=== PATIENT | female | born 1990 | race African-American/Black ===

== ENCOUNTER 2017-06-13 10:34 | Emergency (ER) | payer SELFPAY ==
[~2017-06-13] VITALS: Ht 152.4 cm; Wt 50.0 kg
[~2017-06-13 10:34] MED LIST: BACT800T5 PO; DICY1TAB26 PO; RANI150 PO; ZOFR4TAB3 SL
[2017-06-13 10:35] VITALS: BP 154/93; PULSE 112; RESP 20; TEMP 99.8; O2SAT 99
--- NOTE | 2017-06-13 10:46 | PD ---
Physical Exam Date Seen by Provider: Jun 13, 2017 Time Seen by Provider: 10:45 Narrative 26 yr old female here with b/l cysts on her forearms. She has had in the past. Denies IV drug use. Last time she treated herself at home. She jessica feverish. She has not checked her temperature. Awaiting bed placement. Data Data Last Documented VS Vital Signs Date Time Temp Pulse Resp B/P Pulse Ox O2 Delivery O2 Flow Rate FiO2 06/13/17 10:35 99.8 112 20 154/93 99 MDM Medical Record Reviewed: Yes Supervised Visit with ARTEM: No Condition: Stable Bailey Schwab Jun 13, 2017 10:46
[2017-06-13] MEDS ORDERED: LIDOCAINE HCL 1% 50 ML VIAL INFIL ONE (11:00)
--- NOTE | 2017-06-13 11:00 | PD ---
HPI . b/l arm cysts for 4 days Chief Complaint: Skin Problem Time Seen by Provider: 10:56 Travel History International Travel<30 days: No Contact w/Intl Traveler<30days: No Traveled to known affect area: No History of Present Illness HPI 26 yr old female with recurrent abscesses and denies any IV drug use here with b /l forearm abscesses x 4 days. She says they came out of nowhere and things something may have bitten her. They are mirror images of each other. She thinks she may have had a fever, but never checked her temperature. She is accompanied by her best friend. PFSH Past Medical History Hx Anticoagulant Therapy: No Atrial Fibrillation: No Blood Disorders: No Anxiety: Yes Heart Rhythm Problems: Yes (HEART MURMUR) Cancer: No Cardiovascular Problems: Yes (MURMUR) High Cholesterol: No Chemotherapy: No Chest Pain: No Congestive Heart Failure: No Cerebrovascular Accident: No Diabetes: No Diminished Hearing: No Endocrine: No Gastrointestinal Disorders: Yes (gastritis) Genitourinary: No Hypertension: No Immune Disorder: No Implanted Vascular Access Dvce: No Musculoskeletal: Yes (INJURY RT. HAND) Neurologic: No Psychiatric: No Reproductive: No Respiratory: No ?: Not LMP: 05/28/17 : 6 Para: 4 Miscarriage: 1 : 1 Past Surgical History Section: Yes Hysterectomy: No Other Surgery: Yes (SURGERY TO RIGHT RING FINGER FOR MRSA) Social History Alcohol Use: No Tobacco Use: Yes (occ smoker) Substance Use: No Allergies-Medications (Allergen,Severity, Reaction): Coded Allergies: Vancomycin (Verified Allergy, Severe, RASH, 09/06/16) Reported Meds & Prescriptions Reported Meds & Active Scripts Active Bactrim DS (Sulfamethoxazole-Trimethoprim) 800-160 Mg Tab 1 Tab PO BID Bactrim DS (Sulfamethoxazole-Trimethoprim DS) 1 Tab Tab 1 Tab PO BID 14 Days Zantac 150 Mg Tab (Ranitidine HCl) 150 Mg Tab 150 Mg PO BID 14 Days Bentyl (Dicyclomine HCl) 20 Mg Tab 20 Mg PO Q6HR PRN FOR CRAMPS Zofran ODT (Ondansetron HCl) 4 Mg Tab 4 Mg SL Q6H PRN FOR NAUSEA/VOMITING Review of Systems General / Constitutional: No: Fever Eyes: No: Visual changes HENT: No: Headaches Cardiovascular: No: Chest Pain or Discomfort Respiratory: No: Shortness of Breath Gastrointestinal: No: Abdominal Pain Genitourinary: No: Dysuria Musculoskeletal: No: Pain Skin: Positive Other (b/l forearm abscesses), No Rash Neurologic: No: Weakness Psychiatric: No: Depression Endocrine: No: Polydipsia Hematologic/Lymphatic: No: Easy Bruising Physical Exam Narrative GENERAL: AAO x 3, no acute distress, Well-nourished, well-developed patient. SKIN: Warm and dry. No visible rashes or bruising. B/L proximal forearm with two abscesses, indurated and fluctuant right measuring approximately 2 cm across , left 2.5 cm across, warm to touch and tender. HEAD: Normocephalic and atraumatic. EYES: No scleral icterus. No injection or drainage. ENT: No nasal drainage noted. Mucous membranes pink. Airway patent. NECK: Supple, trachea midline. No JVD. CARDIOVASCULAR: Regular rate and rhythm without murmurs, gallops, or rubs. RESPIRATORY: Breath sounds equal bilaterally. GASTROINTESTINAL:visual inspection normal EXTREMITIES: No cyanosis or edema. BACK: No obvious deformity. NEURO: CN II-12 intact PSYCH: AAO x 3, normal affect. Data Data Last Documented VS Vital Signs Date Time Temp Pulse Resp B/P Pulse Ox O2 Delivery O2 Flow Rate FiO2 06/13/17 10:35 99.8 112 20 154/93 99 Orders Wound Culture And Gram Stain (06/13/17 11:00) Lidocaine 1% Inj (50 Ml) (Xylocaine 1% I (06/13/17 11:00) Wound Culture And Gram Stain (06/13/17 11:01) Ketorolac Inj (Toradol Inj) (06/13/17 11:45) MDM Medical Decision Making Medical Screen Exam Complete: Yes Emergency Medical Condition: Yes Medical Record Reviewed: Yes Differential Diagnosis abscesses, IV drug use, cellulitis, Narrative Course 26 yr old female here with b/l abscesses. It appears these are from injecting drugs. She denies. Patient gave verbal consent to I&D. Patient tolerated without incident. Area was packed and dressed with clean gauze. We discussed proper wound care and worsening signs of infection.. I recommend Bactrim. I stressed that she needs to start this medication today. Toradol given for pain control. Prior to discharge patient verbalized that she is feeling significantly better. She was instructed to return to the ED in 48 hours for recheck and earlier if any infection seems to be worsening. Her friend also verbalized understanding. Patient verbalized understanding of instructions, questions were answered, and thanked me for their care. I advised them if their condition worsens, please return to the nearest emergency room for further care. After discharge, patient return to talk to me and admitted to using IV drugs. She told me that she injected cocaine into her forearms. Procedures Procedure Narrative Right arm: After the risks and benefits were discussed the following procedure was performed: INCISION AND DRAINAGE OF ABSCESS: The area was prepped and was sterilely draped. A subcutaneous wheal of 1 % Xylocaine with a total number 5 mL was used to anesthetize the area. The area was properly anesthetized. A number 11 scalpel was used to make a 1 -cm incision across the area of the abscess. Cultures were obtained. The abscess was drained an irrigated with normal saline. Quarter inch iodoform packing was placed in the wound. Sterile dressing applied. Patient advised to have packing removed in two days. Left arm: After the risks and benefits were discussed the following procedure was performed: INCISION AND DRAINAGE OF ABSCESS: The area was prepped and was sterilely draped. A subcutaneous wheal of 1 % Xylocaine with a total number 6 mL was used to anesthetize the area. The area was properly anesthetized. A number 11scalpel was used to make a 1 -cm incision across the area of the abscess. Cultures were obtained. The abscess was drained an irrigated with normal saline. Quarter inch iodoform packing was placed in the wound. Sterile dressing applied. Patient advised to have packing removed in two days. Diagnosis Primary Impression: Abscess Additional Impressions: Abscess of left forearm Abscess of right forearm Patient Instructions: General Instructions Additional Instructions: Rest, hydrate. Do not change the dressing unless it becomes wet or soiled until wound recheck in 48 hours. You may bathe normally. Do not submerge the wound. Take the antibiotics as they are prescribed, even if your symptoms resolve during the course of treatment. Utilize [id number] pain medications, as described on the label, as needed. Return to the ED in 48 hours for packing removal and wound recheck. Follow-up with your primary care provider in next week. Return to the ED for any urgent or emergent medical condition. Please return to emergency department if your symptoms return or worsen. Follow up with your primary care provider. Take medications as prescribed. [place] for worsening signs of infection which include fever, increased redness , increased warmth, purulent drainage, increased swelling or streaking. If any of these develop, please go to the nearest emergency room. Med/Other Pt SpecificInfo: Prescription(s) given Scripts Sulfamethoxazole-Trimethoprim (Bactrim DS)800-160 Mg Tab1 Tab PO BID #20 TAB Prov:Alfredo Babb MD 06/13/17 Disposition: 01 DISCHARGE HOME Condition: Stable Bailey Schwab Jun 13, 2017 11:00
[2017-06-13] MEDS ORDERED: BACT800T5 PO (11:35)
[2017-06-13] MEDS ORDERED: KETOROLAC TROMETHAMINE 60 MG/2 ML (IM) VIAL IM ONE (11:45)
== END 2017-06-13 11:58 | disposition home or self-care (01) ==
LOC: NEPK 10:34
DX: L02.413 Cutaneous abscess of right upper limb (principal); L02.414 Cutaneous abscess of left upper limb; B95.4 Other streptococcus as the cause of diseases classified elsewhere
CPT/HCPCS: 10061; 86403; 87070; 96372; 99284; J1885

== ENCOUNTER 2017-06-15 16:52 | Inpatient (IN) | payer SELFPAY ==
[~2017-06-15] VITALS: Ht 152.4 cm; Wt 55.0 kg
[2017-06-15 16:54] VITALS: BP 145/66; PULSE 104; RESP 24; TEMP 98.9; O2SAT 97
[2017-06-15] MEDS ORDERED: MAPA500T PO (17:49)
[2017-06-15] MEDS ORDERED: PIPERACIL-TAZO 4.5 GM PREMIX 100 ML IV STA (18:20)
[2017-06-15] MEDS ORDERED: MORPHINE SULFATE 8 MG/ML INJ IM ONE (18:30)
[2017-06-15] MEDS ORDERED: SODIUM CHLOR 0.9% 1000 ML INJ 1,000 ML IV ONE (18:30)
[2017-06-15] MEDS ORDERED: LINEZOLID 600 MG PREMIX 300 ML IV ONE (18:30)
[2017-06-15 18:55] LABS: AUTOMATED NEUTROPHIL # 8.5 TH/MM3 (1.8-7.7); BASOPHIL # 0.1 TH/MM3 (0-0.2); BASOPHIL % 0.5 % (0.0-2.0); EOSINOPHIL # 0.1 TH/MM3 (0-0.4); EOSINOPHIL % 0.8 % (0.0-4.0); HEMO FLAGS DIFF FINAL; LYMPH % 15.7 % (9.0-44.0); LYMPHOCYTE # 1.8 TH/MM3 (1.0-4.8); MEAN CELL VOLUME 90.8 FL (80.0-100.0); MEAN CORPUSCULAR HEMOGLOBIN 30.2 PG (27.0-34.0); MEAN CORPUSCULAR HGB CONC 33.3 % (32.0-36.0); MONO % 9.6 % (0.0-8.0); NEUT % 73.4 % (16.0-70.0); PLATELET COUNT 243 TH/MM3 (150-450); RED BLOOD COUNT 3.85 MIL/MM3 (4.00-5.30); RED CELL DISTRIBUTION WIDTH 13.2 % (11.6-17.2); WHITE BLOOD COUNT 11.6 TH/MM3 (4.0-11.0)
--- NOTE | 2017-06-15 19:08 | RADRPT ---
EXAM DATE/TIME: 06/15/2017 18:32 [facility] COMPARISON: CHEST PA & LAT, December 30, 2014, 19:04. INDICATIONS : Cough and two unhealing wounds on upper extremities. MEDICAL HISTORY : None. SURGICAL HISTORY : None. ENCOUNTER: Initial ACUITY: 1 day PAIN SCORE: 0/10 LOCATION: Bilateral upper chest FINDINGS: Hyperinflation. Heart and mediastinal contours are normal and the lungs are clear. Osseous structures are intact. CONCLUSION: 1. Hyperinflation. Geoffrey Miller MD on June 15, 2017 at 19:06 Board Certified Radiologist. This report was verified electronically.
[2017-06-15 19:10] VITALS: BP 124/59; PULSE 92; RESP 16; O2SAT 99
[2017-06-15 20:00] VITALS: BP 121/56; PULSE 78; RESP 16; O2SAT 98
--- NOTE | 2017-06-15 20:08 | PD ---
HPI Chief Complaint: Wound/Suture/Staple Re-Check Time Seen by Provider: 18:20 Travel History International Travel<30 days: No Contact w/Intl Traveler<30days: No Traveled to known affect area: No History of Present Illness HPI 26-year-old female came in with history of severe pain of her left upper extremity. Patient was seen in the emergency room 3 days ago. She was diagnosed with abscess and she had incision and drainage and packing done. Patient is an IV drug abuser. She was supposed to follow-up yesterday but came in today because she is in severe pain. I am unable to get much history because she just keeps shaking and crying. Vital signs otherwise stable. Her bandages are dirty. PFSH Past Medical History Narrative Medical List of her past medical, surgical, social and family history was reviewed from the nursing note. Hx Anticoagulant Therapy: No Atrial Fibrillation: No Blood Disorders: No Anxiety: Yes Heart Rhythm Problems: Yes (HEART MURMUR) Cancer: No Cardiovascular Problems: Yes (MURMUR) High Cholesterol: No Chemotherapy: No Chest Pain: No Congestive Heart Failure: No Cerebrovascular Accident: No Diabetes: No Diminished Hearing: No Endocrine: No Gastrointestinal Disorders: Yes (gastritis) Genitourinary: No Hypertension: No Immune Disorder: No Implanted Vascular Access Dvce: No Musculoskeletal: Yes (INJURY RT. HAND) Neurologic: No Psychiatric: No Reproductive: No Respiratory: No ?: Not LMP: 06/11/17 : 6 Para: 4 Miscarriage: 1 : 1 Past Surgical History Section: Yes Hysterectomy: No Other Surgery: Yes (SURGERY TO RIGHT RING FINGER FOR MRSA) Social History Alcohol Use: Yes ([facility]) Tobacco Use: Yes ([facility] smoker) Substance Use: Yes (marajuiana ) Allergies-Medications (Allergen,Severity, Reaction): Coded Allergies: Vancomycin (Verified Allergy, Severe, RASH, 09/06/16) Comments List of her allergies reviewed from the nursing note. Reported Meds & Prescriptions Reported Meds & Active Scripts Active Bactrim DS (Sulfamethoxazole-Trimethoprim) 800-160 Mg Tab 1 Tab PO BID Reported Mapap (Acetaminophen) 500 Mg Tab 1,000 Mg PO TID PRN Narrative Medication List of her home medications reviewed from the nursing note. Review of Systems Except as stated in HPI: all other systems reviewed are Neg Physical Exam Narrative GENERAL: Awake, alert, anxious, pain out of proportion SKIN: Focused skin assessment warm/dry. Left elbow area has the packing material coming out and the elbow is swollen and erythematous. Right upper extremity the skin and the extremity does not look as swollen. Distal pulses present HEAD: Atraumatic. Normocephalic. EYES: Pupils equal and round. No scleral icterus. No injection or drainage. ENT: No nasal bleeding or discharge. Mucous membranes pink and moist. NECK: Trachea midline. No JVD. CARDIOVASCULAR: Regular rate and rhythm. No murmur appreciated. RESPIRATORY: No accessory muscle use. Clear to auscultation. Breath sounds equal bilaterally. GASTROINTESTINAL: Abdomen soft, non-tender, nondistended. Hepatic and splenic margins not palpable. MUSCULOSKELETAL: No obvious deformities. No clubbing. No cyanosis. No edema. Decreased range of motion at the left elbow due to the pain. NEUROLOGICAL: Awake and alert. No obvious cranial nerve deficits. Motor grossly within normal limits. Normal speech. PSYCHIATRIC: Appropriate mood and affect; insight and judgment normal. Data Data Last Documented VS Vital Signs Date Time Temp Pulse Resp B/P Pulse Ox O2 Delivery O2 Flow Rate FiO2 06/15/17 20:00 78 16 121/56 98 Room Air 06/15/17 16:54 98.9 Orders Complete Blood Count With Diff (06/15/17 18:20) Comprehensive Metabolic Panel (06/15/17 18:20) Lactic Acid Sepsis Protocol (06/15/17 18:20) Urinalysis - C+S If Indicated (06/15/17 18:20) Blood Culture (06/15/17 18:20) Chest, Single Ap (06/15/17 18:20) Blood Glucose (06/15/17 18:20) Ecg Monitoring (06/15/17 18:20) Iv Access Insert/Monitor (06/15/17 18:20) Oximetry (06/15/17 18:20) Oxygen Administration (06/15/17 18:20) Piperacil-Tazo 4.5 Gm Premix (Zosyn 4.5 (06/15/17 18:20) Linezolid 600 Mg Premix (Zyvox 600 Mg Pr (06/15/17 18:30) Morphine Inj (Morphine Inj) (06/15/17 18:30) Sodium Chlor 0.9% 1000 Ml Inj (Ns 1000 M (06/15/17 18:30) Vascular Access Team Consult/P PRN (06/15/17 18:20) Vascular Poc Ultrasound (06/15/17 ) Creatine Kinase (Cpk) (06/15/17 18:29) Ct Forearm W Iv Contrast (06/15/17 ) Iohexol 350 Inj (Omnipaque 350 Inj) (06/15/17 21:11) Urine Culture (06/15/17 21:15) Admit Order (Ed Use Only) (06/15/17 22:09) Labs Laboratory Tests Test 06/15/17 06/15/17 06/15/17 18:25 18:33 21:15 Lactic Acid Level 1.7 mmol/L White Blood Count 11.6 TH/MM3 Red Blood Count 3.85 MIL/MM3 Hemoglobin 11.7 GM/DL Hematocrit 35.0 % Mean Corpuscular Volume 90.8 FL Mean Corpuscular Hemoglobin 30.2 PG Mean Corpuscular Hemoglobin 33.3 % Concent Red Cell Distribution Width 13.2 % Platelet Count 243 TH/MM3 Mean Platelet Volume 9.2 FL Neutrophils (%) (Auto) 73.4 % Lymphocytes (%) (Auto) 15.7 % Monocytes (%) (Auto) 9.6 % Eosinophils (%) (Auto) 0.8 % Basophils (%) (Auto) 0.5 % Neutrophils # (Auto) 8.5 TH/MM3 Lymphocytes # (Auto) 1.8 TH/MM3 Monocytes # (Auto) 1.1 TH/MM3 Eosinophils # (Auto) 0.1 TH/MM3 Basophils # (Auto) 0.1 TH/MM3 CBC Comment DIFF FINAL Differential Comment Sodium Level 138 MEQ/L Potassium Level 3.3 MEQ/L Chloride Level 103 MEQ/L Carbon Dioxide Level 24.3 MEQ/L Anion Gap 11 MEQ/L Blood Urea Nitrogen 8 MG/DL Creatinine 0.87 MG/DL Estimat Glomerular Filtration 94 ML/MIN Rate Random Glucose 98 MG/DL Calcium Level 8.5 MG/DL Total Bilirubin 0.4 MG/DL Aspartate Amino Transf 20 U/L (AST/SGOT) Alanine Aminotransferase 18 U/L (ALT/SGPT) Alkaline Phosphatase 77 U/L Total Creatine Kinase 178 U/L Total Protein 7.0 GM/DL Albumin 2.9 GM/DL Urine Color LIGHT-YELLOW Urine Turbidity CLEAR Urine pH 6.0 Urine Specific [place] 1.009 Urine Protein NEG mg/dL Urine Glucose (UA) NEG mg/dL Urine Ketones NEG mg/dL Urine Occult Blood NEG Urine Nitrite NEG Urine Bilirubin NEG Urine Urobilinogen LESS THAN 2.0 MG/DL Urine Leukocyte Esterase MOD Urine RBC 1 /hpf Urine WBC 14 /hpf Urine Squamous Epithelial 1 /hpf Cells Microscopic Urinalysis Comment CATH-CULTURE IND MDM Medical Decision Making Medical Screen Exam Complete: Yes Emergency Medical Condition: Yes Medical Record Reviewed: Yes Differential Diagnosis Necrotizing fasciitis, cellulitis, patient treatment failure, abscess Narrative Course 8 PM awaiting for the blood test result. Patient was started on IV Zosyn and IV linezolid and IV fluid as per sepsis protocol. Case was signed over to the oncoming ER physician. Critical Care Narrative Aggregate critical care time was 30 minutes. Time to perform other separately billable procedures was not included in the critical care time. My time did not include minutes spent treating any other patients simultaneously or on activities that did not directly contribute to the patient's treatment. The services I provided to this patient were to treat and/or prevent clinically significant deterioration that could result in: Sepsis, sepsis protocol I provided critical care services requiring my management, as noted below: Chart data review, documentation time, medication orders and management, vital sign assessments/reviewing monitor data, ordering and reviewing lab tests, ordering and interpreting/reviewing x-rays and diagnostic studies, care of the patient and discussion of the patient with the admitting physicians. Procedures EKG Prior to Arrival: No Scripts Tramadol 50 Mg Tab50 Mg PO Q4H PRN (PAIN) #90 TAB Ref 0 Prov:Rodo Boyd Jr., MD 06/16/17 John Farris MD Jun 15, 2017 20:07
[2017-06-15 20:23] LABS: ALT (GPT) 18 U/L (10-53)
[2017-06-15 20:25] LABS: ALKALINE PHOSPHATASE 77 U/L (45-117); TOTAL BILIRUBIN ADULT 0.4 MG/DL (0.2-1.0)
[2017-06-15 20:29] LABS: ANION GAP 11 MEQ/L (5-15); AST (GOT) 20 U/L (15-37); BICARBONATE 24.3 MEQ/L (21.0-32.0); BLOOD UREA NITROGEN 8 MG/DL (7-18); CHLORIDE 103 MEQ/L (98-107); GLOMERULAR FILTRATION RATE 94 ML/MIN (>89); POTASSIUM 3.3 MEQ/L (3.5-5.1); SODIUM (NA) 138 MEQ/L (136-145)
[2017-06-15] MEDS ORDERED: IOHEXOL 350 MG/ML 10 ML VIAL (for RAD DIAG) IV ONE (21:11)
--- NOTE | 2017-06-15 21:24 | RADRPT ---
EXAM DATE/TIME: 06/15/2017 20:59 [facility] COMPARISON: No previous studies available for comparison. INDICATIONS : Left arm pain, redness and swelling post abscess drainage three days ago. IV CONTRAST: 70 cc Omnipaque 350 (iohexol) IV RADIATION DOSE: 20.00 CTDIvol (mGy) MEDICAL HISTORY : IV drug use. SURGICAL HISTORY : None. ENCOUNTER: Initial ACUITY: 3 days PAIN SCALE: 10/10 LOCATION: Left forearm. TECHNIQUE: Volumetric scanning of the forearm was performed. Using automated exposure control and adjustment of the mA and/or kV according to patient size, radiation dose was kept as low as reasonably achievable to obtain optimal diagnostic quality images. DICOM format image data is available electronically fo r review and comparison. FINDINGS: The bones are normal. There is focal ulceration of the forearm proximally on image 43 of series 301 w ith skin thickening and subcutaneous fat stranding identified. There is subcutaneous edema in the ant erior left distal arm soft tissues, and at the distal left humerus medial subcutaneous tissues a rim- enhancing fluid collection is noted on axial image 58 of series 301 measuring 2.3 x 1.3 cm in AP and dimension extending 3.2 m in cephalocaudal dimension on axial image 1: 15 of series 303. There is diffuse subcutaneous edema. CONCLUSION: 1. There is ulceration of the proximal forearm skin with subcutaneous edema and cellulitis suspected. 2. In addition there is an abscess identified within the distal arm deep subcutaneous tissue. Geoffrey Miller MD on June 15, 2017 at 21:20 Board Certified Radiologist. This report was verified electronically.
[2017-06-15 21:30] LABS: BLOOD, URINE NEG (NEG); GLUCOSE,URINE NEG (NEG); KETONE, URINE NEG (NEG); NITRITE,URINE NEG (NEG); SQUAMOUS EPITHELIAL CELL URINE 1 /hpf (0-5); URINE COLOR LIGHT-YELLOW (YELLW/STRAW)
[2017-06-15 21:31] LABS: COMMENT (UR) CATH-CULTURE IND; CULTURE IF INDICATED CATH CULTURE IND
[2017-06-15] MEDS ORDERED: SODIUM CHLOR 0.9% 1000 ML INJ 1,000 ML IV SCH (22:19)
[2017-06-15] MEDS ORDERED: SODIUM CHLORIDE 0.9% FLUSH 10 ML FLUSH IV FLUSH PRN (22:30)
--- NOTE | 2017-06-15 22:39 | HHI.HP ---
HPI Service Family Medicine Primary Care Physician No Primary Care Physician Admission Diagnosis Deep Tissue Abscess, IVDA, Sepsis Diagnoses: International Travel<30 Days: No Contact w/Intl Traveler<30days: No Known Affected Area: No History of Present Illness Ms. Chin is a 26 yo AAF who is presenting in the ED with bilateral upper extremity skin infections. Pt states that 6 days ago she noticed a "knot" on the medial aspect of her L arm slightly distal to the elbow. She had a similar lesion on her R arm about 3 months ago that was still present. In both arms she began to experience pain, swelling and stiffness (worse on L than R). She attempted to miguel both lesions at home, but states only a small amount of pus was drained. 2 days ago she came to the ED and had both lesions I&D and packed. She was sent home on Bactrim. Since that time she reports worsening stiffness, swelling and pain in her L arm and now reports numbness on the lateral aspect of her forearm. She has been taking Tylenol 500 mg every 8-12 hours for pain and occasionally Aleve. She reports nausea, headache, and subjective fevers. Of note: pat (Yogesh Adams MD R1) Review of Systems Constitutional: COMPLAINS OF: Fever (Subjective) Eyes: DENIES: Blurred vision, Eye pain, Vision loss Respiratory: DENIES: Shortness of breath Cardiovascular: DENIES: Chest pain, Syncope Gastrointestinal: COMPLAINS OF: Nausea, DENIES: Black stools, Bloody stools, Diarrhea, Vomiting Musculoskeletal: COMPLAINS OF: Joint pain (R hip) (Yogesh Adams MD R1) Past Family Social History Past Medical History PMH: Skin infections (impetigo) - fingers, arms, Ovarian cysts h/o gastritis States she has no other medical problems Past Surgical History Multiple hand surgeries (fingernail infections), C section x1 (Yogesh Adams MD R1) Allergies: Coded Allergies: Vancomycin (Verified Allergy, Severe, RASH, 09/06/16) Family History Maternal - HTN, Maternal grandmother - DM, HTN Maternal grandfather - lung cancer Paternal - unknown Siblings - no medical problems Social History Homeless - states she is moving from place to place Alcohol - 1-2 drinks a week Tobacco - 0.5 ppd Illicit - Marijuana (not everyday), Cocaine (nasal), IVDU (cocaine - R and L arm x 1) (Yogesh Adams MD R1) Physical Exam Vital Signs Vital Signs Date Time Temp Pulse Resp B/P Pulse Ox O2 Delivery O2 Flow Rate FiO2 06/15/17 20:00 78 16 121/56 98 Room Air 06/15/17 19:10 92 16 124/59 99 Room Air 06/15/17 17:44 16 06/15/17 16:54 98.9 104 24 145/66 97 Room Air Physical Exam GENERAL: Well nourished AAF seen lying in bed uncomfortably. She is continuously shifting her legs and has both arms in a flexed position at the elbow. Occasionally complaining of discomfort regarding her IV. SKIN: Two erythematous lesions, roughly 1 x .25 inch open wounds with no purulent or bloody discharge. Noticeable soft tissue swelling and erythema over the proximal forearm and distal arm. HEAD: Atraumatic. Normocephalic. EYES: Extraocular motions intact. No scleral icterus. No injection or drainage. ENT: Nose without bleeding, purulent drainage or septal hematoma. Airway patent. NECK: Trachea midline. No JVD CARDIOVASCULAR: Regular rate and rhythm without murmurs, gallops, or rubs. RESPIRATORY: Clear to auscultation. Breath sounds equal bilaterally. No wheezes , rales, or rhonchi. GASTROINTESTINAL: Abdomen soft, non-tender, nondistended. No hepato-splenomegaly , or palpable masses. No guarding. NEUROLOGICAL: Awake and alert. Decreased gear inspector strength in the L hand compared to the R. Normal speech. Laboratory Laboratory Tests Test 06/15/17 06/15/17 06/15/17 18:25 18:33 21:15 Lactic Acid Level 1.7 White Blood Count 11.6 Red Blood Count 3.85 Hemoglobin 11.7 Hematocrit 35.0 Mean Corpuscular Volume 90.8 Mean Corpuscular Hemoglobin 30.2 Mean Corpuscular Hemoglobin 33.3 Concent Red Cell Distribution Width 13.2 Platelet Count 243 Mean Platelet Volume 9.2 Neutrophils (%) (Auto) 73.4 Lymphocytes (%) (Auto) 15.7 Monocytes (%) (Auto) 9.6 Eosinophils (%) (Auto) 0.8 Basophils (%) (Auto) 0.5 Neutrophils # (Auto) 8.5 Lymphocytes # (Auto) 1.8 Monocytes # (Auto) 1.1 Eosinophils # (Auto) 0.1 Basophils # (Auto) 0.1 CBC Comment DIFF FINAL Differential Comment Sodium Level 138 Potassium Level 3.3 Chloride Level 103 Carbon Dioxide Level 24.3 Anion Gap 11 Blood Urea Nitrogen 8 Creatinine 0.87 Estimat Glomerular Filtration 94 Rate Random Glucose 98 Calcium Level 8.5 Total Bilirubin 0.4 Aspartate Amino Transf 20 (AST/SGOT) Alanine Aminotransferase 18 (ALT/SGPT) Alkaline Phosphatase 77 Total Creatine Kinase 178 Total Protein 7.0 Albumin 2.9 Urine Color LIGHT-YELLOW Urine Turbidity CLEAR Urine pH 6.0 Urine Specific [place] 1.009 Urine Protein NEG Urine Glucose (UA) NEG Urine Ketones NEG Urine Occult Blood NEG Urine Nitrite NEG Urine Bilirubin NEG Urine Urobilinogen LESS THAN 2.0 Urine Leukocyte Esterase MOD Urine RBC 1 Urine WBC 14 Urine Squamous Epithelial 1 Cells Microscopic Urinalysis Comment CATH-CULTURE IND Date/Time Procedure Status Source Growth 06/15/17 21:15 Urine Culture Received Urine Catheterized Urine Pending 06/15/17 18:30 Aerobic Blood Culture Received Blood Peripheral Pending 06/15/17 18:30 Anaerobic Blood Culture Received Blood Peripheral Pending (Yogesh Adams MD R1) Result Diagram: 06/15/17 1833 06/15/17 1833 Assessment and Plan Assessment and Plan 26 yo AAF presenting with bilateral upper extremity cellulitis with abscess formation in L arm. Consulting General surgery and starting on Zosyn, Linezolid. Cultures pending 1. Left and Right arm cellulitis - known IVD user -CT scan concerning for cellulitis in proximal L forearm and abscess in distal arm - some symptoms concerning for compartment syndrome (pain, paresthesia, weakness ) - ED reported compartments pressures < 10 -Vascular ultrasound performed - will follow up read - consulted General surgery to evaluate for possible debridement - NPO pending surgery eval - Starting Zosyn 4.5 gm q6hr, Linezolid 600 mg q8hr -blood, urine cultures pending -repeat CBC in the AM (most recent WBC 11.6) 2. Pain -Pt in significant amount of pain with any movements of her upper extremities -Morphine scheduled and Dilaudid for breakthrough pain 3. Hypokalemia -Potassium 3.3 on admission -Adding 20 mEq/Liter to maintenance IVFs - Repeat BMP in the AM 4. Fluid, electrolyte, nutrition and prophylaxis -MIVFs + 20 mEq K -NPO until Gen Surgery eval possible OR so holding prophylaxis Code Status Full code Discussed Condition With Seen and discussed with Dr. Vonda Griffin Attending Attestation Dr. Goncalves (Yogesh Adams MD R1) Attending Attestation THIS CASE WAS DISCUSSED WITH THE RESIDENT PHYSICIANS. I HAVE REVIEWED THE RECORD AND AGREE WITH THE ABOVE NOTE AND PLAN OF CARE WAS DISCUSSED. I HAVE AUTHORIZED THE ORDER FOR ADMISSION TO AN IN-PATIENT STATUS. (Natalie Goncalves MD) Problem List: (1) Abscess of left forearm Status: Acute (2) Abscess of right forearm Status: Acute (3) Cellulitis Status: Acute (4) Hypokalemia Status: Acute (5) IVDU (intravenous drug user) Status: Acute (Yogesh Adams MD R1) Physician Certification 2 Midnight Certification Type: Admission for Inpatient Services Order for Inpatient Services The services are ordered in accordance with Medicare regulations or non- Medicare payer requirements, as applicable. In the case of services not specified as inpatient-only, they are appropriately provided as inpatient services in accordance with the 2-midnight benchmark. Estimated LOS (days): 3 days is the estimated time the patient will need to remain in the hospital, assuming treatment plan goals are met and no additional complications. Post-Hospital Plan: Not yet determined (Yogesh Adams MD R1) 2 Midnight Certification Type: Admission for Inpatient Services Post-Hospital Plan: Not yet determined (Natalie Goncalves MD) Yogesh Adams MD R1 Jun 15, 2017 22:38 Natalie Goncalves MD Jun 16, 2017 13:28
[2017-06-15 22:51] VITALS: BP_SYST 136; BP_SYST 139; BP_DIAS 69
[2017-06-15] MEDS ORDERED: MORPHINE SULFATE 4 MG/ML INJ IV PRN (23:00)
[2017-06-15] MEDS ORDERED: ACETAMINOPHEN 325 MG TAB PO PRN (23:00)
[2017-06-15] MEDS ORDERED: HYDROmorphone HCL PF 1 MG/ML VIAL IV PRN (23:00)
[2017-06-15] MEDS ORDERED: NALOXONE HCL 0.4 MG/ML AMP IV PRN (23:00)
[2017-06-16 00:05] VITALS: BP 124/66; PULSE 84; RESP 22; TEMP 98; O2SAT 99
[2017-06-16] MEDS: NS + KCL 20 MEQ INJ 1,000 ML IV SCH ×2 (02:26→12:26)
[2017-06-16 04:00] VITALS: BP 122/71; PULSE 77; RESP 20; TEMP 98.3; O2SAT 99
--- NOTE | 2017-06-16 04:44 | PD ---
Data Data Last Documented VS Vital Signs Date Time Temp Pulse Resp B/P Pulse Ox O2 Delivery O2 Flow Rate FiO2 06/15/17 20:00 78 16 121/56 98 Room Air 06/15/17 16:54 98.9 Orders Complete Blood Count With Diff (06/15/17 18:20) Comprehensive Metabolic Panel (06/15/17 18:20) Lactic Acid Sepsis Protocol (06/15/17 18:20) Urinalysis - C+S If Indicated (06/15/17 18:20) Blood Culture (06/15/17 18:20) Chest, Single Ap (06/15/17 18:20) Blood Glucose (06/15/17 18:20) Ecg Monitoring (06/15/17 18:20) Iv Access Insert/Monitor (06/15/17 18:20) Oximetry (06/15/17 18:20) Oxygen Administration (06/15/17 18:20) Piperacil-Tazo 4.5 Gm Premix (Zosyn 4.5 (06/15/17 18:20) Linezolid 600 Mg Premix (Zyvox 600 Mg Pr (06/15/17 18:30) Morphine Inj (Morphine Inj) (06/15/17 18:30) Sodium Chlor 0.9% 1000 Ml Inj (Ns 1000 M (06/15/17 18:30) Vascular Access Team Consult/P PRN (06/15/17 18:20) Vascular Poc Ultrasound (06/15/17 ) Creatine Kinase (Cpk) (06/15/17 18:29) Ct Forearm W Iv Contrast (06/15/17 ) Iohexol 350 Inj (Omnipaque 350 Inj) (06/15/17 21:11) Urine Culture (06/15/17 21:15) Admit Order (Ed Use Only) (06/15/17 22:09) Labs Laboratory Tests Test 06/15/17 06/15/17 06/15/17 18:25 18:33 21:15 Lactic Acid Level 1.7 mmol/L White Blood Count 11.6 TH/MM3 Red Blood Count 3.85 MIL/MM3 Hemoglobin 11.7 GM/DL Hematocrit 35.0 % Mean Corpuscular Volume 90.8 FL Mean Corpuscular Hemoglobin 30.2 PG Mean Corpuscular Hemoglobin 33.3 % Concent Red Cell Distribution Width 13.2 % Platelet Count 243 TH/MM3 Mean Platelet Volume 9.2 FL Neutrophils (%) (Auto) 73.4 % Lymphocytes (%) (Auto) 15.7 % Monocytes (%) (Auto) 9.6 % Eosinophils (%) (Auto) 0.8 % Basophils (%) (Auto) 0.5 % Neutrophils # (Auto) 8.5 TH/MM3 Lymphocytes # (Auto) 1.8 TH/MM3 Monocytes # (Auto) 1.1 TH/MM3 Eosinophils # (Auto) 0.1 TH/MM3 Basophils # (Auto) 0.1 TH/MM3 CBC Comment DIFF FINAL Differential Comment Sodium Level 138 MEQ/L Potassium Level 3.3 MEQ/L Chloride Level 103 MEQ/L Carbon Dioxide Level 24.3 MEQ/L Anion Gap 11 MEQ/L Blood Urea Nitrogen 8 MG/DL Creatinine 0.87 MG/DL Estimat Glomerular Filtration 94 ML/MIN Rate Random Glucose 98 MG/DL Calcium Level 8.5 MG/DL Total Bilirubin 0.4 MG/DL Aspartate Amino Transf 20 U/L (AST/SGOT) Alanine Aminotransferase 18 U/L (ALT/SGPT) Alkaline Phosphatase 77 U/L Total Creatine Kinase 178 U/L Total Protein 7.0 GM/DL Albumin 2.9 GM/DL Urine Color LIGHT-YELLOW Urine Turbidity CLEAR Urine pH 6.0 Urine Specific [place] 1.009 Urine Protein NEG mg/dL Urine Glucose (UA) NEG mg/dL Urine Ketones NEG mg/dL Urine Occult Blood NEG Urine Nitrite NEG Urine Bilirubin NEG Urine Urobilinogen LESS THAN 2.0 MG/DL Urine Leukocyte Esterase MOD Urine RBC 1 /hpf Urine WBC 14 /hpf Urine Squamous Epithelial 1 /hpf Cells Microscopic Urinalysis Comment CATH-CULTURE IND MDM Medical Record Reviewed: Yes Supervised Visit with ARTEM: No Narrative Course Please refer to the outgoing provider's note. The patient has an abscess in the left arm along the region of the distal humerus. This was discussed with Dr. Londono of orthopedics. He requests general surgery to evaluate the wound. General surgery request hand surgery to evaluate the wound as well. This was discussed with hand surgeon Dr Odell. The patient has received appropriate antibiosis. Case was discussed with family medicine residents. CBC & BMP Diagram 06/15/17 18:33 LFTs normal Lactic acid 1.7 Total creatine kinase 178 Last 24 hours Impressions Chest X-Ray 06/15/17 1820 Signed Impressions: Service Date/Time: Thursday, June 15, 2017 18:32 - CONCLUSION: 1. Hyperinflation. Geoffrey Miller MD Upper Extremity CT 06/15/17 0000 Signed Impressions: Service Date/Time: Tuesday, June 15, 2017 20:59 - CONCLUSION: 1. There is ulceration of the proximal forearm skin with subcutaneous edema and cellulitis suspected. 2. In addition there is an abscess identified within the distal arm deep subcutaneous tissue. Geoffrey Miller MD Diagnosis Primary Impression: Abscess of left forearm Additional Impressions: Hypokalemia IVDU (intravenous drug user) Admitting Information Admitting Physician Requests: Admit Luis E Lino MD Jun 16, 2017 04:44
[2017-06-16] MEDS: PIPERACIL-TAZO 4.5 GM PREMIX 100 ML IV SCH ×3 (05:54→16:57)
[2017-06-16] MEDS: MORPHINE SULFATE 4 MG/ML INJ IV PRN ×3 (06:07→16:56)
[2017-06-16] MEDS ORDERED: SODIUM CHLORIDE 0.9% FLUSH 10 ML FLUSH IV FLUSH SCH (09:00)
[2017-06-16 09:13] VITALS: BP 137/79; PULSE 93; RESP 16; TEMP 99.4; O2SAT 100
[2017-06-16] MEDS: LINEZOLID 600 MG PREMIX 300 ML IV SCH ×2 (09:16→20:00)
[2017-06-16] MEDS ORDERED: HYDROmorphone HCL PF 1 MG/ML VIAL IV PRN (11:00)
[2017-06-16 12:00] VITALS: BP 110/61; PULSE 67; RESP 16; TEMP 98.2; O2SAT 98
[2017-06-16] MEDS ORDERED: PROPOFOL 200 MG/20 ML AMP IV ONE (12:00)
[2017-06-16] MEDS ORDERED: ONDANSETRON HCL 4 MG/2 ML VIAL IV PUSH ONE (12:00)
[2017-06-16 12:07] LABS: BASOPHIL % 0.4 % (0.0-2.0); EOSINOPHIL % 0.5 % (0.0-4.0); HEMATOCRIT 34.4 % (35.0-46.0); HEMO FLAGS DIFF FINAL; LYMPH % 17.5 % (9.0-44.0); LYMPHOCYTE # 1.7 TH/MM3 (1.0-4.8); MEAN CORPUSCULAR HEMOGLOBIN 30.3 PG (27.0-34.0); MEAN CORPUSCULAR HGB CONC 33.3 % (32.0-36.0); MONO % 9.3 % (0.0-8.0); NEUT % 72.3 % (16.0-70.0); PLATELET COUNT 251 TH/MM3 (150-450); RED BLOOD COUNT 3.78 MIL/MM3 (4.00-5.30); WHITE BLOOD COUNT 9.7 TH/MM3 (4.0-11.0)
[2017-06-16 12:38] LABS: POTASSIUM 3.2 MEQ/L (3.5-5.1)
--- NOTE | 2017-06-16 13:50 | HHI.FPPN ---
Subjective Remarks No acute events overnight. VS unremarkable. This morning patient is yelling out in pain in bilateral arms. Reports that pain in right arm is now radiating up to her right shoulder. Does endorse hunger and wants to eat. (Renata Schofield MD R2) Objective Vitals Vital Signs Date Time Temp Pulse Resp B/P Pulse Ox O2 Delivery O2 Flow Rate FiO2 06/16/17 12:00 98.2 67 16 110/61 98 06/16/17 09:13 99.4 93 16 137/79 100 06/16/17 04:00 98.3 77 20 122/71 99 06/16/17 00:05 98.0 84 22 124/66 99 06/15/17 22:51 86 16 139/69 100 06/15/17 22:51 75 20 136/69 100 06/15/17 20:00 78 16 121/56 98 Room Air 06/15/17 19:10 92 16 124/59 99 Room Air 06/15/17 17:44 16 06/15/17 16:54 98.9 104 24 145/66 97 Room Air I/O 06/15/17 06/15/17 06/15/17 06/16/17 06/16/17 06/16/17 06:59 14:59 22:59 06:59 14:59 22:59 Intake Total 437 ml 180 ml Balance 437 ml 180 ml Intake IV Total 437 ml 180 ml # Voids 1 # Bowel Movements 0 (Renata Schofield MD R2) Result Diagram: 06/16/17 1104 06/16/17 1104 Objective Remarks GENERAL: Well nourished laying in bed kicking her legs and moving back in forth yelling in pain. After leaving the room and out of site, patient was lying in bed in no acute distress. SKIN: Lesions on bilateral arms/forearms are covered with clean and dry bandage. No surrounding erythema notes. PE as pulled from admission note: "two erythematous lesions, roughly 1 x .25 inch open wounds with no purulent or bloody discharge. Noticeable soft tissue swelling and erythema over the proximal forearm and distal arm." CARDIOVASCULAR: Regular rate and rhythm without murmurs, gallops, or rubs. RESPIRATORY: Anterior lungs clear to auscultation. Breath sounds equal bilaterally. No wheezes, rales, or rhonchi. MSK: Right shoulder without obvious deformity. There is significant swelling of right upper arm which is new. Soft to touch but clearly edematous. NEUROLOGICAL: Awake and alert. Normal speech. (Renata Schofield MD R2) A/P Assessment and Plan 26 yo AAF admitted for with bilateral upper extremity cellulitis and abscess Discharge Planning 1-2days pending improvement of cellulitis and abscess sdw Dr. Adams, Dr. Mark, Dr. Yamini Griffin, and Dr. Goncalves (Renata Schofield MD R2) Attending Attestation The exam, history, and the medical decision-making described in the above note were completed with the assistance of the resident physician. I reviewed and agree with the findings presented. I attest that I had a [id number] encounter with the patient on the same day, and personally performed and documented my assessment and findings in the medical record. (Natalie Goncalves MD) Problem List: (1) Cellulitis Status: Acute Plan: Bilateral upper extremity cellulitis and abscess. Hx of IV drug use. CT scan of left arm shows cellulitis of proximal left forearm and abscess of distal arm. No fevers. Concern for endocarditis as well. -Leukocytosis on admission resolved -urine culture pending -blood cultures negative -echo ordered for eval of endocarditis Ortho consulted: appreciate recommendation * general surgery and hand were consulted but reported that this case would best be served by ortho * per discussion with Dr. Ramires, keep NPO for surgery this evening Medications: * Linezolid 06/15- * Zosyn 06/15- * Morphine and Dilaudid for pain control Imaging: * Right arm US: ordered and pending * CT left arm: ulceration of the proximal forearm skin with subcutaneous edema and cellulitis suspected. Abscess within the distal arm deep subcutaneous tissue * CXR: unremarkable except for hyperinflation (2) Abscess of left forearm Status: Acute Plan: see above plan (3) Abscess of right forearm Status: Acute Plan: see above plan (4) Hypokalemia Status: Acute Plan: Remain to be hypokalemic. Unable to replace at this time due to the loss of IV access and NPO status. Will address once central line is placed and post op. (5) IVDU (intravenous drug user) Status: Acute Plan: Hx of IV drug use with cocaine. Denies any other drug use that she could be withdrawing from. (6) Nutrition, metabolism, and development symptoms Status: Acute Plan: Diet: NPO until after surgery Fluids: NS + KCL at 90, unable to give due to loss IV access at this time Electrolytes: see above, replete as needed GI PPX: none indicated DVT PPX: SCD, chemical contradicted due to upcoming procedure. (Renata Schofield MD R2) Renata Schofield MD R2 Jun 16, 2017 13:50 Natalie Goncalves MD Jun 17, 2017 10:12
--- NOTE | 2017-06-16 15:13 | RADRPT ---
EXAM DATE/TIME: 06/16/2017 14:38 [facility] COMPARISON: No previous studies available for comparison. INDICATIONS : Right arm wound and swelling. MEDICAL HISTORY : IV drug use. SURGICAL HISTORY : section. ENCOUNTER: Initial ACUITY: 4-6 days PAIN SCORE: 8/10 LOCATION: Right arm. AREA EVALUATED: Right upper arm and forearm FINDINGS: The underlying soft tissue in the right forearm it quite edematous without discrete abscess identifie d MASSES: None. FLUID COLLECTIONS: None. OTHER: Negative. CONCLUSION: Marked soft tissue edema without drainable fluid collection or abscess. The hypodense collection seen on the CT scan is more complicated than it appears on the CT scan . Th e area could be aspirated but I don't believe there significant material for drainage catheter . Mack Mar MD on June 16, 2017 at 15:09 Board Certified Radiologist. This report was verified electronically.
[2017-06-16 16:30] VITALS: BP 142/64; PULSE 64; RESP 19; TEMP 98.7; O2SAT 98
--- NOTE | 2017-06-16 16:54 | RADRPT ---
EXAM DATE/TIME: 06/16/2017 15:35 [facility] COMPARISON: No previous studies available for comparison. INDICATIONS : Patient with a history of deep tissue abscess needs central line MEDICAL HISTORY : Skin infections Ovarian cysts Gastritis IV drug abuser SURGICAL HISTORY : Hand surgeries ENCOUNTER: Initial ACUITY: 4-6 days PAIN SCORE: 8/10 LOCATION: Bilateral upper arm FLUORO TIME: 0.1 minutes IMAGE SERIES: 0 ACCESS: Right internal jugular vein DEVICE(S): 1.) 7 [place] triple lumen 20 cm Central line PROCEDURE : 1. Ultrasound guided venipuncture. 2. Fluoroscopic guidance. 3. Central line placement. The risks, benefits and alternatives to the procedure were explained and verbal and written consent w as obtained. The site was prepped in sterile fashion. Full sterile technique was used, including ca p, mask, sterile gloves and gown and a large sterile sheet. Hand hygiene and 2% chlorhexidine prep w as utilized per protocol for cutaneous antisepsis with appropriate dry time for site. The skin and subcutaneous tissues were infiltrated with local anesthetic solution. A suitable site a delonte the vein was selected with ultrasound and fluoroscopic guidance. A small incision was made. Th e vein was accessed under direct ultrasound visualization using the micropuncture technique. The quiana ropuncture set was exchanged for a 0.035 wire. The tract was dilated. The catheter was advanced int o position under direct fluoroscopic visualization. The catheter was fixed in place with suture and a sterile dressing was applied. The patient tolerated the procedure well and there were no complications. CONCLUSION: Uncomplicated line placement as above. Randall Caldwell MD on June 16, 2017 at 16:53 Board Certified Radiologist. This report was verified electronically.
--- NOTE | 2017-06-16 17:01 | ECHRPT ---
Indication: R/O SEPSIS, ENDOCARDITIS CONCLUSIONS The left ventricular systolic function is normal with an estimated ejection fraction in the range of 55-60%. [id number] mitral valve regurgitation. There is trace tricuspid valve regurgitation. No evidence of endocarditis noted BP: 137 / 79 HR: 93 Rhythm: Sinus MEASUREMENTS (Male / Female) Normal Values Technical Quality:Good 2D ECHO LV Diastolic Diameter PLAX 3.8 cm 4.2 - 5.9 / 3.9 - 5.3 cm LV Systolic Diameter PLAX 2.8 cm IVS Diastolic Thickness 0.5 cm 0.6 - 1.0 / 0.6 - 0.9 cm LVPW Diastolic Thickness 0.5 cm 0.6 - 1.0 / 0.6 - 0.9 cm LV Relative Wall Thickness 0.3 LVOT Diameter 1.7 cm Aortic Root Diameter 2.6 cm M-MODE AV Cusp Separation MM 1.9 cm DOPPLER AV Peak Velocity 135.0 cm/s AV Peak Gradient 7.3 mmHg AV Mean Gradient 4.0 mmHg AV Velocity Time Integral 26.9 cm LVOT Peak Velocity 82.0 cm/s LVOT Peak Gradient 2.7 mmHg LVOT Velocity Time Integral 14.9 cm LVOT Cardiac Index 5779.9 cm/minm AV Area Cont Eq vti 1.3 cm AV Area Cont Eq pk 1.4 cm Mitral E Point Velocity 92.8 cm/s Mitral A Point Velocity 59.7 cm/s Mitral E to A Ratio 1.6 TV Peak Velocity 223.0 cm/s TR Peak Velocity 225.0 cm/s TR Peak Gradient 20.3 mmHg PV Peak Velocity 66.2 cm/s PV Peak Gradient 1.8 mmHg FINDINGS LEFT VENTRICLE Normal left ventricular size. The left ventricular systolic function is normal with an estimated ejection fraction in the range of 55-60%. No regional wall motion abnormalities are present. RIGHT VENTRICLE Normal right ventricular size and systolic function. LEFT ATRIUM The left atrial size is normal. RIGHT ATRIUM The right atrial size is normal. ATRIAL SEPTUM Normal atrial septal thickness without atrial level shunting by limited color doppler interrogation. AORTA The aortic root and proximal ascending aorta are not well visualized. MITRAL VALVE Structurally normal mitral valve. [id number] mitral valve regurgitation. AORTIC VALVE Probably trileaflet aortic valve. No aortic valve regurgitation. No aortic valve stenosis. TRICUSPID VALVE Structurally normal tricuspid valve. There is trace tricuspid valve regurgitation. Normal estimated pulmonary pressures. PULMONARY VALVE The pulmonary valve is not well visualized. No pulmonary valve regurgitation. PERICARDIUM No pericardial effusion. Armin Lino DO (Electronically Signed) Final Date:16 June 2017 17:00
[2017-06-16] MEDS ORDERED: GENTAMICIN SULFATE 80 MG/2 ML VIAL ONE (17:07)
--- NOTE | 2017-06-16 20:41 | PD.CONS ---
cc: Rodo Boyd Jr., MD HPI Service Orthopedic Surgeons Consult Requested By Primary Care Physician No Primary Care Physician Admission Diagnosis Deep Tissue Abscess, IVDA, Sepsis Diagnoses: Chief Complaint: Bilateral upper extremity abscess History of Present Illness 26-year-old female with history of IV drug abuse presented with several days history of worsening bilateral upper extremity pain and swelling. She denies any fever or chills. Denies any other trauma. Denies loss of consciousness. Currently patient's pain is sharp, 9 out of 10, in bilateral forearm, exacerbated by any range of motion of the wrist and fingers, relieved at rest and with IV pain medicine, pain is nonradiating, not associated with any paresthesia and numbness to the extremities. Review of Systems Constitutional: DENIES: Diaphoretic episodes, Fatigue, Fever, Weight gain, Weight loss, Chills, Dizziness, Change in appetite, Night Sweats Endocrine: DENIES: Abnorml menstrual pattern, Heat/cold intolerance, Polydipsia , Polyuria, Polyphagia Eyes: DENIES: Blurred vision, Diplopia, Eye inflammation, Eye pain, Vision loss , Photosensitivity, Double Vision Ears, nose, mouth, throat: DENIES: Tinnitus, Hearing loss, Vertigo, Nasal discharge, Oral lesions, Throat pain, Hoarseness, Ear Pain, Running Nose, Epistaxis, Sinus Pain, Toothache, Odynophagia Respiratory: DENIES: Apneas, Cough, Snoring, Wheezing, Hemoptysis, Sputum production, Shortness of breath Past Family Social History Allergies: Coded Allergies: Vancomycin (Verified Allergy, Severe, RASH, 09/06/16) Active Ordered Medications Current Medications Medications (Trade) Dose Ordered Sig/Joselin Route Start Time Stop Time Status Last Admin (NS Flush) 2 ml BID IV FLUSH 06/16/17 09:00 06/16/17 09:16 (NS Flush) 2 ml UNSCH PRN IV FLUSH 06/15/17 22:30 (Tylenol) 650 mg Q6H PRN PO 06/15/17 23:00 (Morphine Inj) 2 mg Q3H PRN IV 06/15/17 23:00 (Morphine Inj) 4 mg Q3H PRN IV 06/15/17 23:00 06/16/17 16:56 Naloxone HCl 0.4 mg 0.4 mg UNSCH PRN IV 06/15/17 23:00 Linezolid 300 ml @ 300 mls/hr Q12H IV 06/16/17 08:00 06/16/17 09:16 Piperacillin Sod/ Tazobactam Sod 100 ml @ 200 mls/hr Q6H IV 06/16/17 06:00 06/16/17 16:57 (NS + KCl 20 Meq Inj) 1,000 ml @ 90 mls/hr Q11H7M IV 06/16/17 02:15 06/16/17 02:26 (Dilaudid Pf Inj) 2 mg Q3H PRN IV 06/16/17 11:00 Reported Meds & Active Scripts Active Bactrim DS (Sulfamethoxazole-Trimethoprim) 800-160 Mg Tab 1 Tab PO BID Reported Mapap (Acetaminophen) 500 Mg Tab 1,000 Mg PO TID PRN Physical Exam Vital Signs Vital Signs Date Time Temp Pulse Resp B/P Pulse Ox O2 Delivery O2 Flow Rate FiO2 06/16/17 16:30 98.7 64 19 142/64 98 06/16/17 12:00 98.2 67 16 110/61 98 06/16/17 09:13 99.4 93 16 137/79 100 06/16/17 04:00 98.3 77 20 122/71 99 06/16/17 00:05 98.0 84 22 124/66 99 06/15/17 22:51 86 16 139/69 100 06/15/17 22:51 75 20 136/69 100 Physical Exam Alert awake and oriented x 3. No acute distress. Head: NC/AT Neck: No pain with any range of motion and neck. No tenderness to palpation along posterior cervical elements. Negative Spurling. Pulmonary: Normal respiratory effort. Bilateral upper extremity: Small volar forearm wound with purulent drainage. Compartments are soft firm with expressible purulent drainage. Otherwise grossly neurovascular intact. Small area of induration and no fluctuance. Very minimal pain with passive finger range of motion. Area of erythema extends to the radial arm and overlying the antecubital fossa on the right side. otherwise, Intact sensation distally in median, ulnar, and radial nerve. Intact motor in anterior interosseous, posterior interosseous, and ulnar nerve. 2+ radial artery pulses. Good cap refill. Bilateral lower extremity: Neurovascularly intact, +EHL/FHL,+ PT/DP pulses. Supple compartments. Negative Homans sign. Laboratory Laboratory Tests Test 06/15/17 06/16/17 21:15 11:04 Urine Color LIGHT-YELLOW Urine Turbidity CLEAR Urine pH 6.0 Urine Specific [place] 1.009 Urine Protein NEG Urine Glucose (UA) NEG Urine Ketones NEG Urine Occult Blood NEG Urine Nitrite NEG Urine Bilirubin NEG Urine Urobilinogen LESS THAN 2.0 Urine Leukocyte Esterase MOD Urine RBC 1 Urine WBC 14 Urine Squamous Epithelial 1 Cells Microscopic Urinalysis Comment CATH-CULTURE IND White Blood Count 9.7 Red Blood Count 3.78 Hemoglobin 11.5 Hematocrit 34.4 Mean Corpuscular Volume 91.0 Mean Corpuscular Hemoglobin 30.3 Mean Corpuscular Hemoglobin 33.3 Concent Red Cell Distribution Width 13.0 Platelet Count 251 Mean Platelet Volume 9.2 Neutrophils (%) (Auto) 72.3 Lymphocytes (%) (Auto) 17.5 Monocytes (%) (Auto) 9.3 Eosinophils (%) (Auto) 0.5 Basophils (%) (Auto) 0.4 Neutrophils # (Auto) 7.0 Lymphocytes # (Auto) 1.7 Monocytes # (Auto) 0.9 Eosinophils # (Auto) 0.0 Basophils # (Auto) 0.0 CBC Comment DIFF FINAL Differential Comment Erythrocyte Sedimentation Rate 49 Sodium Level 136 Potassium Level 3.2 Chloride Level 102 Carbon Dioxide Level 24.0 Anion Gap 10 Blood Urea Nitrogen 2 Creatinine 0.71 Estimat Glomerular Filtration 119 Rate Random Glucose 110 Calcium Level 8.1 Date/Time Procedure Status Source Growth 06/15/17 21:15 Urine Culture - Preliminary Resulted Urine Catheterized Urine NO GROWTH IN 24 HOURS. 06/15/17 18:30 Aerobic Blood Culture - Preliminary Resulted Blood Peripheral NO GROWTH IN 1 DAY 06/15/17 18:30 Anaerobic Blood Culture - Preliminary Resulted Blood Peripheral NO GROWTH IN 1 DAY Result Diagram: 06/16/17 1104 06/16/17 1104 Imaging Last 72 hours Impressions Upper Extremity Ultrasound 06/16/17 0000 Signed Impressions: Service Date/Time: May 14:38 - CONCLUSION: Marked soft tissue edema without drainable fluid collection or abscess. The hypodense collection seen on the CT scan is more complicated than it appears on the CT scan . The area could be aspirated but I don't believe there significant material for drainage catheter . Mack Mar MD Central Venous Line 06/16/17 0000 Signed Impressions: Service Date/Time: , June 16, 2017 15:35 - CONCLUSION: Uncomplicated line placement as above. Randall Caldwell MD Chest X-Ray 06/15/17 1820 Signed Impressions: Service Date/Time: Thursday, June 15, 2017 18:32 - CONCLUSION: 1. Hyperinflation. Geoffrey Miller MD Upper Extremity CT 06/15/17 0000 Signed Impressions: Service Date/Time: Tuesday, June 15, 2017 20:59 - CONCLUSION: 1. There is ulceration of the proximal forearm skin with subcutaneous edema and cellulitis suspected. 2. In addition there is an abscess identified within the distal arm deep subcutaneous tissue. Geoffrey Miller MD Assessment & Plan Assessment and Plan 26-year-old female history IV drug abuse presents with a few day history of bilateral upper extremity swelling and draining wound. She denies any fever or chills. Upon presentation she is neurovascularly intact, with 2 superficially open wounds in the mid proximal forearm. The wounds were actually draining purulent material. I recommend irrigation and drainage. I discussed my treatment plans with the patient, as well as risks, benefits and alternatives of surgical Intervention versus nonoperative treatment. In this case, the risks of operative intervention involves bleeding, infection, risks of damage to neurovascular structures, the risk of needing further surgery and the risks involved with complication from anesthesia. We will proceed with the above procedure. The patient accepts these risks; understands and agrees with my recommendations. I also discussed my proposed postoperative care and follow-up plan. All questions were answered. Plan for OR []. Nothing by mouth []. Patient consented. Thanks for the consult, thanks for allowing me to participate in this patient's medical care. Rodo Boyd Jr., MD Jun 16, 2017 20:41
[2017-06-16] MEDS ORDERED: TRAM50TA PO (20:42)
[2017-06-16] MEDS ORDERED: ONDANSETRON HCL 4 MG/2 ML VIAL IV PRN (20:45)
[2017-06-16] MEDS ORDERED: ZOLPIDEM TARTRATE 5 MG TAB PO PRN (20:45)
[2017-06-16] MEDS ORDERED: KETOROLAC TROMETHAMINE 30 MG/ML (IVP) VIAL IVP ONE (20:45)
[2017-06-16] MEDS ORDERED: MORPHINE SULFATE 8 MG/ML INJ IV PUSH PRN (20:45)
[2017-06-16] MEDS ORDERED: SODIUM CHLORIDE 0.9% FLUSH 10 ML FLUSH IV FLUSH PRN (20:45)
--- NOTE | 2017-06-16 20:51 | PD.OP ---
cc: Rodo Boyd Jr., MD Operative Report Date of Surgery: Jun 16, 2017 Preoperative Diagnosis: Bilateral upper forearm abscess Postoperative Diagnosis: Same Procedure: Irrigation and drainage of bilateral forearm subcutaneous abscess Anesthesia: Gen. Surgeon: Rodo Boyd Bankman(s): Staff Resident Surgeon: None Operation and Findings: Patient was seen and evaluated preoperatively. Patient was found to have bilateral forearm abscess. Fluctuance was noted. Informed consent was obtained after detailed discussion of risk and benefits of surgery. Operative sites were marked. Patient placed supine and both upper extremities prepped. IV sedation and GETA were administered by anesthesiologist. Operative arms were prepped and draped in usual sterile fashion. Timeout procedure was performed. Procedure began with a longitudinal volar forearm incision above the abscesses. Subcutaneous tissue dissected with Bovie. In both upper forearm abscesses, A large pocket of purulent material was found. The underlying glistening fascia was not violated. The fascia appeared healthy. Specimen was obtained for cultures and sensitivities. the wound edges were sharply debrided. Both wounds were thoroughly irrigated with copious amount of normal saline. The right forearm abscess was more extensive than larger, therefore I packed the wound with iodoform gauze prior to closure. At this point the wound were clean. Subcutaneous tissues closed with 3-0 PDS and skin was closed with 2-0 nylon. Sterile dressings were applied. Patient was awakened and transferred to recovery in stable condition. Needle and sponge counts were correct. DRAINS: none POSTP-OP PLAN OF ACTIVITY Antibiotics: Ancef Antiocoagulation: SCD Weight bearing status: wbat PT/OT: ROM as tolerated to irrigated joints Dressing: Removed drains packing RUE POD 2, then daily dressing change by RN Dispo: expected discharge 1-2 days. abx per ID recs Rodo Boyd Jr., MD Jun 16, 2017 20:51
[2017-06-16] MEDS: LACTATED RINGER'S 1000 ML INJ 1,000 ML IV SCH ×2 (21:00→21:47)
[2017-06-16] MEDS: DOCUSATE SODIUM 100 MG CAP PO SCH (21:00)
[2017-06-16] MEDS: SODIUM CHLORIDE 0.9% FLUSH 10 ML FLUSH IV FLUSH SCH (21:00)
[2017-06-16] MEDS ORDERED: HYDROmorphone HCL PF 2 MG/ML VIAL ONE (21:08)
[2017-06-16] MEDS ORDERED: MIDAZOLAM HCL 2 MG/2 ML VIAL ONE (21:16)
--- NOTE | 2017-06-16 21:26 | PD.CONS ---
cc: Brenden Acosta MD HPI Service General Surgery Consult Requested By Dr. Lino Reason for Consult Evaluation of BUE abscesses Primary Care Physician No Primary Care Physician History of Present Illness This is a 26 year old female with a past medical history of IV drug abuse with multiple abscesses. The patient was seen earlier this week for evaluation of left forearm abscess which was drained in the Emergency Department. The patient returns to the Emergency Department for evaluation of the left forearm abscess as well as a right forearm abscess. The patient is homeless. She has had multiple admissions for bilateral upper extremity abscesses. A General Surgery consultation has been requested by the emergency department by Dr. Acosta made it clear that this was within the specialty of either an Orthopedic Surgeon or a Hand Surgeon. Jayla GONZALEZ was contacted by the Mail Officer team which requested clarification and evaluation of forearm abscesses. Review of Systems Constitutional: DENIES: Fever, Chills Endocrine: DENIES: Polydipsia, Polyuria, Polyphagia Eyes: DENIES: Diplopia, Eye inflammation Ears, nose, mouth, throat: DENIES: Hearing loss Respiratory: DENIES: Apneas Cardiovascular: DENIES: Chest pain Gastrointestinal: DENIES: Abdominal pain, Bloody stools Genitourinary: DENIES: Urinary frequency, Urinary incontinence Musculoskeletal: COMPLAINS OF: Joint pain (RIGHT shoulder pain ) Integumentary: COMPLAINS OF: Abnormal pigmentation (BUE abscesses; draining) Hematologic/lymphatic: DENIES: Bruising Immunologic/allergic: DENIES: Eczema Neurologic: DENIES: Headache, Localized weakness Psychiatric: DENIES: Mood changes, Depression, Hallucinations Past Family Social History Past Medical History None Past Surgical History Multiple incision and drainage of multiple bilateral upper extremity abscesses Reported Medications None Allergies: Coded Allergies: Vancomycin (Verified Allergy, Severe, RASH, 09/06/16) Active Ordered Medications Current Medications Medications (Trade) Dose Ordered Sig/Joselin Route Start Time Stop Time Status Last Admin (Morphine Inj) 2 mg Q3H PRN IV 06/15/17 23:00 (Morphine Inj) 4 mg Q3H PRN IV 06/15/17 23:00 06/16/17 16:56 Naloxone HCl 0.4 mg 0.4 mg UNSCH PRN IV 06/15/17 23:00 Linezolid 300 ml @ 300 mls/hr Q12H IV 06/16/17 08:00 06/16/17 09:16 Piperacillin Sod/ Tazobactam Sod 100 ml @ 200 mls/hr Q6H IV 06/16/17 06:00 06/16/17 16:57 (Lr 1000 ml Inj) 1,000 ml @ 100 mls/hr Q10H IV 06/16/17 21:00 06/16/17 21:00 (NS Flush) 2 ml UNSCH PRN IV FLUSH 06/16/17 20:45 Sodium Chloride 2 ml 2 ml BID IV FLUSH 06/16/17 21:00 (Ancef Inj/NS Inj) 100 ml @ 200 mls/hr Q6H IV 06/16/17 22:00 06/16/17 21:18 (Morphine Inj) 5 mg Q3H PRN IV PUSH 06/16/17 20:45 (Percocet 5-325 Mg) 1 tab Q4H PRN PO 06/16/17 20:45 (Zofran Inj) 4 mg Q6H PRN IV 06/16/17 20:45 (Colace) 100 mg BID PO 06/16/17 21:00 (Ambien) 5 mg HS PRN PO 06/16/17 20:45 Family History Noncontributory Social History Positive IVDA The patient is homeless. Physical Exam Vital Signs Vital Signs Date Time Temp Pulse Resp B/P Pulse Ox O2 Delivery O2 Flow Rate FiO2 06/16/17 16:30 98.7 64 19 142/64 98 06/16/17 12:00 98.2 67 16 110/61 98 06/16/17 09:13 99.4 93 16 137/79 100 06/16/17 04:00 98.3 77 20 122/71 99 06/16/17 00:05 98.0 84 22 124/66 99 06/15/17 22:51 86 16 139/69 100 06/15/17 22:51 75 20 136/69 100 Physical Exam GENERAL: 26-year-old female resting in bed in moderate distress. SKIN: RIGHT proximal to AX abscess with indurated area and open area drainage; LEFT FA abscess with indurated area and open area draining purulent drainage HEAD: Atraumatic. Normocephalic. EYES: Pupils equal and round. No scleral icterus. No injection or drainage. ENT: No nasal bleeding or discharge. Mucous membranes pink and moist. NECK: Trachea midline. No JVD. CARDIOVASCULAR: Regular rate and rhythm. RESPIRATORY: No accessory muscle use. Clear to auscultation. Breath sounds equal bilaterally. GASTROINTESTINAL: Abdomen soft, non-tender, nondistended. MUSCULOSKELETAL: Limited ROM of RIGHT shoulder. NEUROLOGICAL: Awake and alert. No obvious cranial nerve deficits. Motor grossly within normal limits. Normal speech. PSYCHIATRIC: Anxious. Laboratory Laboratory Tests Test 06/16/17 11:04 White Blood Count 9.7 Red Blood Count 3.78 Hemoglobin 11.5 Hematocrit 34.4 Mean Corpuscular Volume 91.0 Mean Corpuscular Hemoglobin 30.3 Mean Corpuscular Hemoglobin 33.3 Concent Red Cell Distribution Width 13.0 Platelet Count 251 Mean Platelet Volume 9.2 Neutrophils (%) (Auto) 72.3 Lymphocytes (%) (Auto) 17.5 Monocytes (%) (Auto) 9.3 Eosinophils (%) (Auto) 0.5 Basophils (%) (Auto) 0.4 Neutrophils # (Auto) 7.0 Lymphocytes # (Auto) 1.7 Monocytes # (Auto) 0.9 Eosinophils # (Auto) 0.0 Basophils # (Auto) 0.0 CBC Comment DIFF FINAL Differential Comment Erythrocyte Sedimentation Rate 49 Sodium Level 136 Potassium Level 3.2 Chloride Level 102 Carbon Dioxide Level 24.0 Anion Gap 10 Blood Urea Nitrogen 2 Creatinine 0.71 Estimat Glomerular Filtration 119 Rate Random Glucose 110 Calcium Level 8.1 Date/Time Procedure Status Source Growth 06/15/17 21:15 Urine Culture - Preliminary Resulted Urine Catheterized Urine NO GROWTH IN 24 HOURS. 06/15/17 18:30 Aerobic Blood Culture - Preliminary Resulted Blood Peripheral NO GROWTH IN 1 DAY 06/15/17 18:30 Anaerobic Blood Culture - Preliminary Resulted Blood Peripheral NO GROWTH IN 1 DAY Result Diagram: 06/16/17 1104 06/16/17 1104 Imaging Last 48 hours Impressions Upper Extremity Ultrasound 06/16/17 0000 Signed Impressions: Service Date/Time: May 14:38 - CONCLUSION: Marked soft tissue edema without drainable fluid collection or abscess. The hypodense collection seen on the CT scan is more complicated than it appears on the CT scan . The area could be aspirated but I don't believe there significant material for drainage catheter . Mack Mar MD Central Venous Line 06/16/17 0000 Signed Impressions: Service Date/Time: May 15:35 - CONCLUSION: Uncomplicated line placement as above. Randall Caldwell MD Chest X-Ray 06/15/17 1820 Signed Impressions: Service Date/Time: Thursday, June 15, 2017 18:32 - CONCLUSION: 1. Hyperinflation. Geoffrey Miller MD Assessment and Plan Assessment and Plan 26 year old female with BUE abscess -After evaluation at the bedside by Dr. Acosta and Dr. dOell it was decided that Orthopedics should be consulted due to the area of the abscess -NPO -I personally contacted [facility] after evaluation of the patient -Spoke with Dr. Schofield and she will consult Orthopedics -No General Surgery issues at this time Discussed Condition With Jayal Sorensen Dr., Dr., Ms. Jun 16, 2017 21:26
[2017-06-16] MEDS ORDERED: DO NOT ADM ANY ANTICOAGULANT DRUGS PRN (21:45)
[2017-06-16 22:00] VITALS: BP 131/61; PULSE 69; RESP 23; TEMP 97.1; O2SAT 100
[2017-06-17] MEDS: PIPERACIL-TAZO 4.5 GM PREMIX 100 ML IV SCH ×4 (00:04→17:21)
[2017-06-17] MEDS: oxyCODONE/ACETAMINOPHEN 5 MG/325 MG TAB PO PRN ×6 (00:42→22:25)
[2017-06-17 04:30] VITALS: BP 130/62; PULSE 67; RESP 19; TEMP 98; O2SAT 100
[2017-06-17 06:21] LABS: AUTOMATED NEUTROPHIL # 4.8 TH/MM3 (1.8-7.7); BASOPHIL % 0.5 % (0.0-2.0); EOSINOPHIL # 0.1 TH/MM3 (0-0.4); EOSINOPHIL % 0.7 % (0.0-4.0); HEMATOCRIT 30.5 % (35.0-46.0); HEMO FLAGS DIFF FINAL; LYMPH % 29.6 % (9.0-44.0); LYMPHOCYTE # 2.4 TH/MM3 (1.0-4.8); MEAN CELL VOLUME 91.6 FL (80.0-100.0); MEAN CORPUSCULAR HEMOGLOBIN 30.4 PG (27.0-34.0); MEAN CORPUSCULAR HGB CONC 33.2 % (32.0-36.0); MONO % 10.9 % (0.0-8.0); NEUT % 58.3 % (16.0-70.0); PLATELET COUNT 235 TH/MM3 (150-450); RED BLOOD COUNT 3.33 MIL/MM3 (4.00-5.30); WHITE BLOOD COUNT 8.2 TH/MM3 (4.0-11.0)
[2017-06-17 06:52] LABS: BICARBONATE 27.9 MEQ/L (21.0-32.0); POTASSIUM 4.7 MEQ/L (3.5-5.1)
--- NOTE | 2017-06-17 08:25 | PD.WCN.NOT ---
Wound Consult Additional Information: Patient not seen by wound care. Orthopedic surgeon was consulted and I&D procedure performed. Doctor wrote orders for patient. Please follow Orthopedic surgeon's recommendations and orders.Wound care is signing off. Ostomy Date of Surgery: Jun 16, 2017 [facility] Jun 17, 2017 08:25
[2017-06-17] MEDS: LINEZOLID 600 MG PREMIX 300 ML IV SCH ×2 (08:27→19:57)
[2017-06-17] MEDS: SODIUM CHLORIDE 0.9% FLUSH 10 ML FLUSH IV FLUSH SCH ×2 (08:31→19:58)
[2017-06-17] MEDS: DOCUSATE SODIUM 100 MG CAP PO SCH ×2 (08:32→19:53)
[2017-06-17 08:46] VITALS: BP 120/55; PULSE 64; RESP 16; TEMP 98.3; O2SAT 97
--- NOTE | 2017-06-17 11:03 | HHI.FPPN ---
Subjective Remarks Patient was seen and examined this morning. She states her pain is better and controlled on by mouth meds since her I&D procedures yesterday. She denies chest pain, shortness breath, nausea, vomiting or headache. She has been eating clear liquids without difficulty. She has asked for regular diet this morning. She has not ambulated since the procedure. (Vonda Griffin MD R1) Objective Vitals Vital Signs Date Time Temp Pulse Resp B/P Pulse Ox O2 Delivery O2 Flow Rate FiO2 06/17/17 08:46 98.3 64 16 120/55 97 06/17/17 04:30 98.0 67 19 130/62 100 06/16/17 22:00 97.1 69 23 131/61 100 06/16/17 21:29 88 16 113/68 96 Room Air 06/16/17 21:15 92 16 114/68 96 Nasal Cannula 2 06/16/17 21:01 98.5 103 16 142/88 100 Nasal Cannula 2 06/16/17 16:30 98.7 64 19 142/64 98 06/16/17 12:00 98.2 67 16 110/61 98 I/O 06/16/17 06/16/17 06/16/17 06/17/17 06/17/17 06/17/17 06:59 14:59 22:59 06:59 14:59 22:59 Intake Total 437 ml 180 ml 800 ml 400 ml Output Total 50 ml Balance 437 ml 180 ml 750 ml 400 ml Intake Oral 0 ml 400 ml IV Total 437 ml 180 ml 300 ml Other 500 ml Output Estimated Blood Loss 50 ml Other 0 ml # Voids 1 1 2 1 # Bowel Movements 0 0 0 (Vonda Griffin MD R1) Result Diagram: 06/17/17 0555 06/17/17 0555 Imaging Last Impressions Upper Extremity Ultrasound 06/16/17 0000 Signed Impressions: Service Date/Time: May 14:38 - CONCLUSION: Marked soft tissue edema without drainable fluid collection or abscess. The hypodense collection seen on the CT scan is more complicated than it appears on the CT scan . The area could be aspirated but I don't believe there significant material for drainage catheter . Mack Mar MD Central Venous Line 06/16/17 0000 Signed Impressions: Service Date/Time: May 15:35 - CONCLUSION: Uncomplicated line placement as above. Randall Caldwell MD Chest X-Ray 06/15/17 1820 Signed Impressions: Service Date/Time: Thursday, June 15, 2017 18:32 - CONCLUSION: 1. Hyperinflation. Geoffrey Miller MD Upper Extremity CT 06/15/17 0000 Signed Impressions: Service Date/Time: Thursday, June 15, 2017 20:59 - CONCLUSION: 1. There is ulceration of the proximal forearm skin with subcutaneous edema and cellulitis suspected. 2. In addition there is an abscess identified within the distal arm deep subcutaneous tissue. Geoffrey Miller MD Objective Remarks GENERAL: Well nourished laying in bed kicking her legs and moving back in forth yelling in pain. After leaving the room and out of site, patient was lying in bed in no acute distress. SKIN: Lesions on bilateral arms/forearms are covered with clean and dry bandage. No surrounding erythema notes. PE as pulled from admission note: "two erythematous lesions, roughly 1 x .25 inch open wounds with no purulent or bloody discharge. Noticeable soft tissue swelling and erythema over the proximal forearm and distal arm." CARDIOVASCULAR: Regular rate and rhythm without murmurs, gallops, or rubs. RESPIRATORY: Anterior lungs clear to auscultation. Breath sounds equal bilaterally. No wheezes, rales, or rhonchi. MSK: Right shoulder without obvious deformity. There is significant swelling of right upper arm which is new. Soft to touch but clearly edematous. NEUROLOGICAL: Awake and alert. Normal speech. GENERAL: Well-nourished female sitting up in bed comfortably eating breakfast SKIN: No new skin abnormalities noted HEAD: Atraumatic. Normocephalic. EYES: Pupils equal and round. No scleral icterus. No injection or drainage. ENT: No nasal bleeding or discharge. Mucous membranes pink and moist. NECK: Trachea midline. No JVD. CARDIOVASCULAR: Regular rate and rhythm. No murmurs on auscultation. Normal cap refill distally. RESPIRATORY: No accessory muscle use. Clear to auscultation bilaterally. Breath sounds equal bilaterally. GASTROINTESTINAL: Abdomen soft, non-tender, nondistended. Hypoactive bowel sounds. Hepatic and splenic margins not palpable. MUSCULOSKELETAL: Lateral upper extremities wrapped and with apparent splinting. Normal ROM of the fingers. Extremities without clubbing, cyanosis, or edema. NEUROLOGICAL: Awake and alert. No obvious cranial nerve deficits. Motor grossly within normal limits. Grossly normal muscle strength. Normal speech. PSYCHIATRIC: Appropriate mood and affect; insight and judgment normal. Medications and IVs Inpatient Medications Acetaminophen (Tylenol) 650 mg Q6H PRN PO PAIN SCALE 1 TO 2; Start 06/15/17 at 23:00; Stop 06/16/17 at 21:11; Status DC Cefazolin Sodium/ Sodium Chloride (Ancef Inj/NS Inj) 100 ml @ 200 mls/hr Q6H IV Last administered on 06/17/17 10:00; Start 06/16/17 at 22:00 Docusate Sodium (Colace) 100 mg BID PO Last administered on 06/17/17 08:32; Start 06/16/17 at 21:00 Hydromorphone HCl (Dilaudid Pf Inj) 1 mg Q3H PRN IV BREAKTHROUGH PAIN Last administered on 06/16/17 00:14; Start 06/15/17 at 23:00; Stop 06/16/17 at 09:42 ; Status DC Hydromorphone HCl 2 mg 2 mg Q3H PRN IV BREAKTHROUGH PAIN; Start 06/16/17 at 11: 00; Stop 06/16/17 at 21:10; Status DC Ketorolac Tromethamine (Toradol Inj) 15 mg ONCE ONCE IVP Last administered on 06/16/17 20:45; Start 06/16/17 at 20:45; Stop 06/16/17 at 21:05; Status DC Lactated Ringer's (Lr 1000 ml Inj) 1,000 ml @ 100 mls/hr Q10H IV Last administered on 06/16/17 21:47; Start 06/16/17 at 21:00 Linezolid 300 ml @ 300 mls/hr Q12H IV Last administered on 06/17/17 08:27; Start 06/16/17 at 08:00 Linezolid (Zyvox 600 Mg Premix) 300 ml @ 300 mls/hr ONCE ONCE IV Last administered on 06/15/17 20:48; Start 06/15/17 at 18:30; Stop 06/15/17 at 19:29 ; Status DC Miscellaneous Information ALL NURSING DEPARTME... UNSCH PRN .XX SEE LABEL COMMENTS; Start 06/16/17 at 21:45; Stop 06/17/17 at 21:44 Morphine Sulfate (Morphine Inj) 5 mg Q3H PRN IV PUSH BREAKTHROUGH PAIN; Start 06/16/17 at 20:45 Morphine Sulfate 6 mg 6 mg ONCE ONCE IM Last administered on 06/15/17 19:38; Start 06/15/17 at 18:30; Stop 06/15/17 at 18:31; Status DC Naloxone HCl 0.4 mg 0.4 mg UNSCH PRN IV SEE LABEL COMMENTS; Start 06/15/17 at 23:00 Ondansetron HCl (Zofran Inj) 4 mg Q6H PRN IV NAUSEA; Start 06/16/17 at 20:45 Oxycodone/ Acetaminophen (Percocet 5-325 Mg) 1 tab Q4H PRN PO PAIN SCALE 1 TO 5 Last administered on 06/17/17 09:59; Start 06/16/17 at 20:45 Piperacillin Sod/ Tazobactam Sod 100 ml @ 200 mls/hr Q6H IV Last administered on 06/17/17 05:50; Start 06/16/17 at 06:00 Potassium Chloride/Sodium Chloride (NS + KCl 20 Meq Inj) 1,000 ml @ 90 mls/hr Q11H7M IV Last administered on 06/16/17 02:26; Start 06/16/17 at 02:15; Stop 06/16/17 at 21:12; Status DC Sodium Chloride (NS 1000 ml Inj) 1,000 ml @ 90 mls/hr Q11H7M IV Last administered on 06/16/17 00:16; Start 06/15/17 at 22:19; Stop 06/16/17 at 02:15 ; Status DC Sodium Chloride (NS Flush) 2 ml UNSCH PRN IV FLUSH FLUSH AFTER USING IV ACCESS ; Start 06/16/17 at 20:45 Sodium Chloride 2 ml 2 ml BID IV FLUSH Last administered on 06/17/17 08:31; Start 06/16/17 at 21:00 Zolpidem Tartrate (Ambien) 5 mg HS PRN PO INSOMNIA; Start 06/16/17 at 20:45 ( Vonda Griffin MD R1) Urinary Catheter: No (Vonda Griffin MD R1) Vascular Central Line Catheter: Yes Date of Insertion: Jun 16, 2017 Line: Central Venous Catheter Side: Right Location: Internal, Jugular Reason for Continuation Need for IV access Poor peripheral IV access (Vonda Griffin MD R1) A/P Assessment and Plan 26 yo AAF admitted for with bilateral upper extremity cellulitis and abscess Discharge Planning Unclear. Possibly 1-2 days pending improvement of cellulitis and if patient does not require return to the OR for further surgical management. Orthopedic surgery following. Seen and discussed with Dr. Villavicencio (Vonda Griffin MD R1) Attending Attestation The exam, history, and the medical decision-making described in the above note were completed with the assistance of the resident physician. I reviewed and agree with the findings presented. I attest that I had a [id number] encounter with the patient on the same day, and personally performed an assessment and exam. The patient appears much improved with pain control. Cultures of the wound are pending. No fevers and white count good. Continue current antibiotics. ( Natalie Goncalves MD) Problem List: (1) Cellulitis Status: Acute Plan: * Continue pain management with Percocet and morphine when necessary * Continue antibiotics as below * Postop H&H reviewed, .12/27.5. We'll continue to monitor Hospital course: Patient admitted for management of bilateral upper extremity cellulitis and abscess. Hx of IV drug use. CT scan of left arm 06/15 shows cellulitis of proximal left forearm and abscess of distal arm. No fevers. Concern for endocarditis as well. Upper extremity ultrasound of right arm 06/16 showing no obvious abscess but did show complex hypodense collection of fluid Leukocytosis on admission resolved Urine culture showing no growth so far Blood culture 06/15 showing no growth so far 2-D echo ordered for evaluation of endocarditis: Unremarkable study with EF 55 60 percent, no vegetations noted Ortho consulted: appreciate recommendation * general surgery and hand were consulted but reported that this case would best be served by ortho * I&D bilateral arms performed 06/16 (Dr. Boyd) Antibiotic course: * Linezolid 06/15- * Zosyn 06/15- Imaging: * Right arm US 06/16: no obvious abscess but did show complex hypodense collection of fluid * CT left arm 06/15: ulceration of the proximal forearm skin with subcutaneous edema and cellulitis suspected. Abscess within the distal arm deep subcutaneous tissue * CXR 06/14: unremarkable except for hyperinflation (2) Abscess of left forearm Status: Acute Plan: see above plan (3) Abscess of right forearm Status: Acute Plan: see above plan (4) Hypokalemia Status: Resolved Plan: Noted on admission. Normalized, likely related to poor nutrition (5) IVDU (intravenous drug user) Status: Chronic Plan: Hx of IV drug use with cocaine. Denies any other drug use that she could be withdrawing from. * Endocarditis workup as above (6) Nutrition, metabolism, and development symptoms Status: Acute Plan: Diet: Regular diet Fluids: NS at 100 mL/hour via central line Electrolytes: Monitor and replete as needed GI PPX: none indicated Access: Central line in the RIJ. We'll continue as this is only IV access at this time. Monitor for signs of infection DVT PPX: Early ambulation. Start chemical anticoagulation 06/18 (Vonda Griffin MD R1) Vonda Griffin MD R1 Jun 17, 2017 11:03 Natalie Goncalves MD Jun 17, 2017 11:58
[2017-06-17 11:59] VITALS: BP 127/63; PULSE 64; RESP 16; TEMP 98.1; O2SAT 100
[2017-06-17 13:27] VITALS: O2SAT 99
[2017-06-17] MEDS: MORPHINE SULFATE 4 MG/ML INJ IV PRN (16:06)
[2017-06-17 16:24] VITALS: BP 119/66; PULSE 70; RESP 16; TEMP 98.4; O2SAT 99
[2017-06-17] MEDS: LACTATED RINGER'S 1000 ML INJ 1,000 ML IV SCH (17:00)
[2017-06-17 20:50] VITALS: BP 125/80; PULSE 69; RESP 22; TEMP 98; O2SAT 96
--- NOTE | 2017-06-17 22:07 | PD.ORT.PN ---
Subjective Subjective Remarks bilateral forearm pain improved. Objective Vitals Vital Signs Date Time Temp Pulse Resp B/P Pulse Ox O2 Delivery O2 Flow Rate FiO2 06/17/17 20:50 98.0 69 22 125/80 96 06/17/17 16:24 98.4 70 16 119/66 99 06/17/17 13:27 99 Nasal Cannula 2.00 06/17/17 11:59 98.1 64 16 127/63 100 06/17/17 08:46 98.3 64 16 120/55 97 06/17/17 04:30 98.0 67 19 130/62 100 I/O 06/16/17 06/16/17 06/16/17 06/17/17 06/17/17 06/17/17 07:00 15:00 23:00 07:00 15:00 23:00 Intake Total 437 ml 180 ml 800 ml 400 ml 2403 ml Output Total 50 ml Balance 437 ml 180 ml 750 ml 400 ml 2403 ml Intake Oral 0 ml 400 ml 240 ml IV Total 437 ml 180 ml 300 ml 2163 ml Other 500 ml Output Estimated Blood Loss 50 ml Other 0 ml # Voids 1 1 2 2 4 # Bowel Movements 0 0 0 Result Diagram: 06/17/17 0555 06/17/17 0555 Objective Remarks Alert awake and oriented x 3. No acute distress. Neck: No pain with any range of motion and neck. Pulmonary: Normal respiratory effort. Bilateral upper extremity exam: grossly neuro Intact, dressing CDI. soft forearm and arm compartments, improved overall erythema, still TTP L>R, sensation distally in median, ulnar, and radial nerve. Intact motor in anterior interosseous, posterior interosseous, and ulnar nerve. 2+ radial artery pulses. Good cap refill. Assessment & Plan Assessment and Plan POD #1irrigation debridement bilateral forearms obvious abscess Clinically improving Antibiotics: Per ID, f/u intraop cultures Weightbearing status: As tolerated Dressing change: Change daily, by RN starting postop day 2. DC packing in right forearm on postoperative day 2 PT/OT: OOB, Encourage at least 3 times a day. Dispo: Stable ortho. likely dc home with insurance application investigator abx per ID recs Follow-up: 2 weeks, Dr. Boyd, [facility] Rodo Wolf Jr., MD Jun 17, 2017 22:07
[2017-06-18] VITALS (8 sets, daily range): BP systolic 113–146; BP diastolic 59–70; PULSE 56–70; RESP 16–20; TEMP 97.4–98; O2SAT 94–100
[2017-06-18] MEDS: PIPERACIL-TAZO 4.5 GM PREMIX 100 ML IV SCH ×5 (01:04→23:54)
[2017-06-18] MEDS: LACTATED RINGER'S 1000 ML INJ 1,000 ML IV SCH ×2 (03:00→12:01)
[2017-06-18] MEDS: oxyCODONE/ACETAMINOPHEN 5 MG/325 MG TAB PO PRN ×2 (06:02→10:12)
[2017-06-18 06:15] LABS: AUTOMATED NEUTROPHIL # 5.6 TH/MM3 (1.8-7.7); BASOPHIL # 0.1 TH/MM3 (0-0.2); BASOPHIL % 0.8 % (0.0-2.0); EOSINOPHIL # 0.2 TH/MM3 (0-0.4); EOSINOPHIL % 1.7 % (0.0-4.0); HEMATOCRIT 28.5 % (35.0-46.0); HEMO FLAGS DIFF FINAL; LYMPH % 25.3 % (9.0-44.0); LYMPHOCYTE # 2.2 TH/MM3 (1.0-4.8); MEAN CELL VOLUME 89.5 FL (80.0-100.0); MEAN CORPUSCULAR HGB CONC 34.6 % (32.0-36.0); MONO % 8.6 % (0.0-8.0); NEUT % 63.6 % (16.0-70.0); PLATELET COUNT 243 TH/MM3 (150-450); RED BLOOD COUNT 3.18 MIL/MM3 (4.00-5.30); RED CELL DISTRIBUTION WIDTH 12.9 % (11.6-17.2); WHITE BLOOD COUNT 8.9 TH/MM3 (4.0-11.0)
[2017-06-18 06:50] LABS: BICARBONATE 28.2 MEQ/L (21.0-32.0); POTASSIUM 3.5 MEQ/L (3.5-5.1)
--- NOTE | 2017-06-18 07:18 | PD.ORT.PN ---
Subjective Subjective Remarks POD 2 s/p I&D bilateral forearm abscesses reports slight pain in arms. no other complaints. Objective Vitals Vital Signs Date Time Temp Pulse Resp B/P Pulse Ox O2 Delivery O2 Flow Rate FiO2 06/18/17 03:30 100 06/18/17 00:00 97.8 68 19 120/69 97 06/17/17 20:50 98.0 69 22 125/80 96 06/17/17 16:24 98.4 70 16 119/66 99 06/17/17 13:27 99 Nasal Cannula 2.00 06/17/17 11:59 98.1 64 16 127/63 100 06/17/17 08:46 98.3 64 16 120/55 97 I/O 06/17/17 06/17/17 06/17/17 06/18/17 06/18/17 06/18/17 07:00 15:00 23:00 07:00 15:00 23:00 Intake Total 400 ml 3253 ml Balance 400 ml 3253 ml Intake Oral 400 ml 1090 ml IV Total 2163 ml # Voids 2 2 4 # Bowel Movements 0 0 Result Diagram: 06/18/17 0555 06/18/17 0555 Objective Remarks Alert awake and oriented x 3. No acute distress. Neck: No pain with any range of motion and neck. Pulmonary: Normal respiratory effort. Bilateral upper extremity exam: grossly neuro Intact, dressing CDI. soft forearm and arm compartments, improved overall erythema, still TTP L>R, sensation distally in median, ulnar, and radial nerve. Intact motor in anterior interosseous, posterior interosseous, and ulnar nerve. 2+ radial artery pulses. Good cap refill. Assessment & Plan Assessment and Plan POD #2irrigation debridement bilateral forearms obvious abscess Clinically improving Antibiotics: Per ID, f/u intraop cultures Weightbearing status: As tolerated Dressing change: Change daily, by RN starting postop day 2. DC packing in right forearm on postoperative day 2 PT/OT: OOB, Encourage at least 3 times a day. Dispo: Stable ortho. likely dc home with senior living abx per ID recs Follow-up: 2 weeks, Dr. Boyd, [facility] Ricardo Abdullahi Jun 18, 2017 07:18
[2017-06-18] MEDS: SODIUM CHLORIDE 0.9% FLUSH 10 ML FLUSH IV FLUSH SCH ×2 (08:54→21:45)
[2017-06-18] MEDS: LINEZOLID 600 MG PREMIX 300 ML IV SCH ×2 (08:54→21:45)
[2017-06-18] MEDS: DOCUSATE SODIUM 100 MG CAP PO SCH (08:56)
--- NOTE | 2017-06-18 09:20 | HHI.FPPN ---
Subjective Remarks Patient was seen and examined this morning. She states she had some trouble sleeping last night due to persistent arm pain and required 1 dose of morphine. She states that usually Percocet does help with her pain. She states that she had mild nausea last night with no vomiting. She is somewhat ambulatory and has only used the incentive spirometer at bedside one time. She denies fevers, chills, headache, shortness of breath, chest pain. She is tolerating regular diet. Has not had bowel movement but is passing some flatus. (Vonda Griffin MD R1) Objective Vitals Vital Signs Date Time Temp Pulse Resp B/P Pulse Ox O2 Delivery O2 Flow Rate FiO2 06/18/17 08:53 97.8 56 16 113/61 100 06/18/17 04:40 98.0 64 20 122/70 98 06/18/17 03:30 100 06/18/17 00:00 97.8 68 19 120/69 97 06/17/17 20:50 98.0 69 22 125/80 96 06/17/17 16:24 98.4 70 16 119/66 99 06/17/17 13:27 99 Nasal Cannula 2.00 06/17/17 11:59 98.1 64 16 127/63 100 I/O 06/17/17 06/17/17 06/17/17 06/18/17 06/18/17 06/18/17 07:00 15:00 23:00 07:00 15:00 23:00 Intake Total 400 ml 3253 ml 1000 ml Balance 400 ml 3253 ml 1000 ml Intake Oral 400 ml 1090 ml 1000 ml IV Total 2163 ml # Voids 2 2 4 2 # Bowel Movements 0 0 0 (Vonda Griffin MD R1) Result Diagram: 06/18/17 0555 06/18/17 0555 Imaging Last Impressions Upper Extremity Ultrasound 06/16/17 0000 Signed Impressions: Service Date/Time: May 14:38 - CONCLUSION: Marked soft tissue edema without drainable fluid collection or abscess. The hypodense collection seen on the CT scan is more complicated than it appears on the CT scan . The area could be aspirated but I don't believe there significant material for drainage catheter . Mack Mar MD Central Venous Line 06/16/17 0000 Signed Impressions: Service Date/Time: May 15:35 - CONCLUSION: Uncomplicated line placement as above. Randall Caldwell MD Chest X-Ray 06/15/17 1820 Signed Impressions: Service Date/Time: Thursday, June 15, 2017 18:32 - CONCLUSION: 1. Hyperinflation. Geoffrey Miller MD Upper Extremity CT 06/15/17 0000 Signed Impressions: Service Date/Time: Thursday, June 15, 2017 20:59 - CONCLUSION: 1. There is ulceration of the proximal forearm skin with subcutaneous edema and cellulitis suspected. 2. In addition there is an abscess identified within the distal arm deep subcutaneous tissue. Geoffrey Miller MD Objective Remarks GENERAL: Well-nourished female sitting up in bed comfortably ordering breakfast SKIN: No new skin abnormalities noted HEAD: Atraumatic. Normocephalic. EYES: Pupils equal and round. No scleral icterus. No injection or drainage. ENT: No nasal bleeding or discharge. Mucous membranes pink and moist. NECK: Trachea midline. No JVD. CARDIOVASCULAR: Regular rate and rhythm. No murmurs on auscultation. Normal cap refill distally. RESPIRATORY: No accessory muscle use. Clear to auscultation bilaterally. Breath sounds equal bilaterally. GASTROINTESTINAL: Abdomen soft, non-tender, nondistended. Hypoactive bowel sounds. Hepatic and splenic margins not palpable. MUSCULOSKELETAL: Lateral upper extremities wrapped and with apparent splinting. Normal ROM of the fingers. Extremities without clubbing, cyanosis, or edema. NEUROLOGICAL: Awake and alert. No obvious cranial nerve deficits. Motor grossly within normal limits. Grossly normal muscle strength. Normal speech. PSYCHIATRIC: Appropriate mood and affect; insight and judgment normal. Medications and IVs Inpatient Medications Acetaminophen (Tylenol) 650 mg Q6H PRN PO PAIN SCALE 1 TO 2; Start 06/15/17 at 23:00; Stop 06/16/17 at 21:11; Status DC Cefazolin Sodium/ Sodium Chloride (Ancef Inj/NS Inj) 100 ml @ 200 mls/hr Q6H IV Last administered on 06/18/17 10:12; Start 06/16/17 at 22:00 Docusate Sodium (Colace) 100 mg BID PO Last administered on 06/18/17 08:56; Start 06/16/17 at 21:00 Hydromorphone HCl (Dilaudid Pf Inj) 1 mg Q3H PRN IV BREAKTHROUGH PAIN Last administered on 06/16/17 00:14; Start 06/15/17 at 23:00; Stop 06/16/17 at 09:42 ; Status DC Hydromorphone HCl 2 mg 2 mg Q3H PRN IV BREAKTHROUGH PAIN; Start 06/16/17 at 11: 00; Stop 06/16/17 at 21:10; Status DC Ketorolac Tromethamine (Toradol Inj) 15 mg ONCE ONCE IVP Last administered on 06/16/17 20:45; Start 06/16/17 at 20:45; Stop 06/16/17 at 21:05; Status DC Lactated Ringer's (Lr 1000 ml Inj) 1,000 ml @ 100 mls/hr Q10H IV Last administered on 06/16/17 21:47; Start 06/16/17 at 21:00 Linezolid 300 ml @ 300 mls/hr Q12H IV Last administered on 06/18/17 08:54; Start 06/16/17 at 08:00 Linezolid (Zyvox 600 Mg Premix) 300 ml @ 300 mls/hr ONCE ONCE IV Last administered on 06/15/17 20:48; Start 06/15/17 at 18:30; Stop 06/15/17 at 19:29 ; Status DC Miscellaneous Information ALL NURSING DEPARTME... UNSCH PRN .XX SEE LABEL COMMENTS; Start 06/16/17 at 21:45; Stop 06/17/17 at 21:44; Status DC Morphine Sulfate (Morphine Inj) 5 mg Q3H PRN IV PUSH BREAKTHROUGH PAIN; Start 06/16/17 at 20:45 Morphine Sulfate 6 mg 6 mg ONCE ONCE IM Last administered on 06/15/17 19:38; Start 06/15/17 at 18:30; Stop 06/15/17 at 18:31; Status DC Naloxone HCl 0.4 mg 0.4 mg UNSCH PRN IV SEE LABEL COMMENTS; Start 06/15/17 at 23:00 Ondansetron HCl (Zofran Inj) 4 mg Q6H PRN IV NAUSEA; Start 06/16/17 at 20:45 Oxycodone/ Acetaminophen (Percocet 5-325 Mg) 1 tab Q4H PRN PO PAIN SCALE 1 TO 5 Last administered on 06/18/17 10:12; Start 06/16/17 at 20:45 Piperacillin Sod/ Tazobactam Sod 100 ml @ 200 mls/hr Q6H IV Last administered on 06/18/17 11:44; Start 06/16/17 at 06:00 Potassium Chloride/Sodium Chloride (NS + KCl 20 Meq Inj) 1,000 ml @ 90 mls/hr Q11H7M IV Last administered on 06/16/17 02:26; Start 06/16/17 at 02:15; Stop 06/16/17 at 21:12; Status DC Sodium Chloride (NS 1000 ml Inj) 1,000 ml @ 90 mls/hr Q11H7M IV Last administered on 06/16/17 00:16; Start 06/15/17 at 22:19; Stop 06/16/17 at 02:15 ; Status DC Sodium Chloride (NS Flush) 2 ml UNSCH PRN IV FLUSH FLUSH AFTER USING IV ACCESS ; Start 06/16/17 at 20:45 Sodium Chloride 2 ml 2 ml BID IV FLUSH Last administered on 06/18/17 08:54; Start 06/16/17 at 21:00 Zolpidem Tartrate (Ambien) 5 mg HS PRN PO INSOMNIA; Start 06/16/17 at 20:45 ( Vonda Griffin MD R1) Urinary Catheter: No (Vonda Griffin MD R1) Vascular Central Line Catheter: Yes Assessment to: Continue Date of Insertion: Jun 16, 2017 Line: Central Venous Catheter Side: Right Location: Internal, Jugular (Vonda Griffin MD R1) A/P Assessment and Plan 26 yo AAF admitted for with bilateral upper extremity cellulitis and abscess Discharge Planning Unclear. Possibly 1-2 days pending improvement of cellulitis and if patient does not require return to the OR for further surgical management. Orthopedic surgery following. Seen and discussed with Dr. Villavicencio (Vonda Griffin MD R1) Attending Attestation Patient seen and examined. Case reviewed and discussed with the resident team. Agree with plan of care as discussed with me and documented in the resident note. (Natalie Goncalves MD) Problem List: (1) Cellulitis Status: Acute Plan: * Continue pain management with Percocet and morphine when necessary * Continue antibiotics as below * Postop H&H reviewed, stable * Ortho has cleared patient for discharge home * Likely discharge 1-2 days, monitoring pain and operative cultures Hospital course: Patient admitted for management of bilateral upper extremity cellulitis and abscess. Hx of IV drug use. CT scan of left arm 06/15 shows cellulitis of proximal left forearm and abscess of distal arm. No fevers. Concern for endocarditis as well. Upper extremity ultrasound of right arm 06/16 showing no obvious abscess but did show complex hypodense collection of fluid Leukocytosis on admission resolved Urine culture 06/15 showing no growth so far Blood culture 06/15 showing no growth so far 2-D echo ordered for evaluation of endocarditis: Unremarkable study with EF 55 60 percent, no vegetations noted Ortho consulted: appreciate recommendation * general surgery and hand were consulted but reported that this case would best be served by ortho * I&D bilateral arms performed 06/16 (Dr. Boyd) Antibiotic course: * Linezolid 06/15- * Zosyn 06/15- Imaging: * Right arm US 06/16: no obvious abscess but did show complex hypodense collection of fluid * CT left arm 06/15: ulceration of the proximal forearm skin with subcutaneous edema and cellulitis suspected. Abscess within the distal arm deep subcutaneous tissue * CXR 06/14: unremarkable except for hyperinflation (2) Abscess of left forearm Status: Acute Plan: see above plan (3) Abscess of right forearm Status: Acute Plan: see above plan (4) Hypokalemia Status: Resolved Plan: Noted on admission. Normalized, likely related to poor nutrition (5) IVDU (intravenous drug user) Status: Chronic Plan: Hx of IV drug use with cocaine. Denies any other drug use that she could be withdrawing from. * Endocarditis workup negative (6) Nutrition, metabolism, and development symptoms Status: Acute Plan: Diet: Regular diet Fluids: PO Electrolytes: Monitor and replete as needed GI PPX: none indicated Access: Central line in the RIJ. We'll continue as this is only IV access at this time. Monitor for signs of infection DVT PPX: Early ambulation. Start chemical anticoagulation 06/18 (Vonda Grififn MD R1) Vonda Griffin MD R1 Jun 18, 2017 09:20 Natalie Goncalves MD Jun 18, 2017 14:46
[2017-06-18] MEDS: MORPHINE SULFATE 4 MG/ML INJ IV PRN (11:45)
[2017-06-18] MEDS ORDERED: MORPHINE SULFATE 4 MG/ML INJ IV PRN (13:30)
[2017-06-18] MEDS ORDERED: SENNOSIDES 8.6 MG TAB PO PRN (13:30)
[2017-06-18] MEDS ORDERED: LACTULOSE SYRUP 20 GM/30 ML CUP PO PRN (13:30)
[2017-06-18] MEDS ORDERED: MAGNESIUM HYDROXIDE SUSP 30 ML CUP PO PRN (13:30)
[2017-06-18] MEDS ORDERED: BISACODYL 10 MG SUPP RECTAL PRN (13:30)
[2017-06-18] MEDS ORDERED: oxyCODONE/ACETAMINOPHEN 5 MG/325 MG TAB PO PRN (13:30)
[2017-06-18] MEDS ORDERED: NALOXONE HCL 0.4 MG/ML AMP IV PRN (13:30)
[2017-06-18] MEDS: oxyCODONE/ACETAMINOPHEN 10 MG/325 MG TAB PO PRN (14:19)
[2017-06-18] MEDS: LACTOBACILLUS ACIDOPHILUS 1 GM PACKET PO SCH (17:00)
[2017-06-18] MEDS: DOCUSATE SODIUM 50 MG/SENNA 8.6 MG TAB PO SCH (21:00)
[2017-06-19] VITALS: BP 131/82; PULSE 65; RESP 18; TEMP 98.1; O2SAT 100
[2017-06-19 04:00] VITALS: BP 134/63; PULSE 65; RESP 18; TEMP 98.2; O2SAT 100
[2017-06-19] MEDS: PIPERACIL-TAZO 4.5 GM PREMIX 100 ML IV SCH ×3 (05:42→18:14)
[2017-06-19 06:38] LABS: AUTOMATED NEUTROPHIL # 3.3 TH/MM3 (1.8-7.7); BASOPHIL % 0.7 % (0.0-2.0); EOSINOPHIL # 0.1 TH/MM3 (0-0.4); EOSINOPHIL % 1.9 % (0.0-4.0); HEMATOCRIT 26.4 % (35.0-46.0); HEMO FLAGS DIFF FINAL; LYMPH % 35.9 % (9.0-44.0); LYMPHOCYTE # 2.3 TH/MM3 (1.0-4.8); MEAN CELL VOLUME 89.8 FL (80.0-100.0); MEAN CORPUSCULAR HEMOGLOBIN 32.1 PG (27.0-34.0); MEAN CORPUSCULAR HGB CONC 35.8 % (32.0-36.0); MONO % 8.5 % (0.0-8.0); PLATELET COUNT 257 TH/MM3 (150-450); RED BLOOD COUNT 2.94 MIL/MM3 (4.00-5.30); RED CELL DISTRIBUTION WIDTH 12.6 % (11.6-17.2); WHITE BLOOD COUNT 6.3 TH/MM3 (4.0-11.0)
[2017-06-19 06:39] LABS: BICARBONATE 30.1 MEQ/L (21.0-32.0); POTASSIUM 3.6 MEQ/L (3.5-5.1)
[2017-06-19] MEDS: oxyCODONE/ACETAMINOPHEN 10 MG/325 MG TAB PO PRN ×3 (07:52→21:29)
[2017-06-19] MEDS: LINEZOLID 600 MG PREMIX 300 ML IV SCH ×2 (07:53→21:28)
[2017-06-19] MEDS: DOCUSATE SODIUM 50 MG/SENNA 8.6 MG TAB PO SCH ×2 (07:57→21:00)
[2017-06-19] MEDS: SODIUM CHLORIDE 0.9% FLUSH 10 ML FLUSH IV FLUSH SCH ×2 (07:57→21:28)
[2017-06-19] MEDS: LACTOBACILLUS ACIDOPHILUS 1 GM PACKET PO SCH ×3 (07:57→18:14)
[2017-06-19 08:21] VITALS: BP 129/72; PULSE 90; RESP 20; TEMP 98.3; O2SAT 96
--- NOTE | 2017-06-19 09:22 | HHI.FPPN ---
Subjective Remarks Pt seen and examined this morning. AFVSS. She reports several episodes of diarrhea overnight, non-bloody. Pt attributes this to Milk of magnesia she was given yesterday. Denies chest pain, difficulty breathing, abdominal pain, lower extremity swelling. Pain has been well controlled with oral medications. Pt reports that she is homeless, she has been living with friends recently. Objective Vitals Vital Signs Date Time Temp Pulse Resp B/P Pulse Ox O2 Delivery O2 Flow Rate FiO2 06/19/17 08:21 98.3 90 20 129/72 96 06/19/17 04:00 98.2 65 18 134/63 100 06/19/17 00:00 98.1 65 18 131/82 100 06/18/17 20:00 98.0 57 18 146/67 94 06/18/17 16:44 97.4 59 17 116/59 96 06/18/17 13:05 97.8 70 16 122/59 99 06/18/17 10:25 99 21 I/O 06/18/17 06/18/17 06/18/17 06/19/17 06/19/17 06/19/17 07:00 15:00 23:00 07:00 15:00 23:00 Intake Total 1000 ml 240 ml 120 ml Balance 1000 ml 240 ml 120 ml Intake Oral 1000 ml 240 ml 120 ml # Voids 2 5 1 # Bowel Movements 0 2 1 Result Diagram: 06/19/17 0545 06/19/17 0545 Objective Remarks GENERAL: Well-nourished female sitting up in bed comfortably SKIN: No new skin abnormalities noted HEENT: Atraumatic. Normocephalic. Pupils equal and round. No scleral icterus. No injection or drainage. No nasal bleeding or discharge. Mucous membranes pink and moist. NECK: Trachea midline. No JVD. CARDIOVASCULAR: Regular rate and rhythm. No murmurs on auscultation. Normal cap refill distally. RESPIRATORY: No accessory muscle use. Clear to auscultation bilaterally. Breath sounds equal bilaterally. GASTROINTESTINAL: Abdomen soft, non-tender, nondistended. Hypoactive bowel sounds. Hepatic and splenic margins not palpable. MUSCULOSKELETAL: Distal forearms wrapped with gauze dressings. Dressings appear clean and dry. Normal ROM of the fingers. Extremities without clubbing, cyanosis, or edema. NEUROLOGICAL: Awake and alert. No obvious cranial nerve deficits. Motor grossly within normal limits. Grossly normal muscle strength. Normal speech. PSYCHIATRIC: Appropriate mood and affect; insight and judgment normal. Date of Insertion: Jun 16, 2017 Line: Central Venous Catheter Side: Right Location: Internal, Jugular A/P Assessment and Plan 26 yo AAF admitted for with bilateral upper extremity cellulitis and abscess Discharge Planning Pending recommendations from infectious disease regarding antibiotic selection and duration. Patient has been cleared by orthopedic surgery. Seen and discussed with Dr. Villavicencio, Dr. Lopez Problem List: (1) Cellulitis Status: Acute Plan: * Infectious disease consulted regarding antibiotic selection and duration as this will play a large role in discharge planning, appreciate recommendations. * Continue pain management with Percocet and morphine when necessary * Continue antibiotics as below * Postop H&H reviewed, stable * Ortho has cleared patient for discharge home * Likely discharge 1-2 days, monitoring pain and operative cultures Hospital course: Patient admitted for management of bilateral upper extremity cellulitis and abscess. Hx of IV drug use. CT scan of left arm 06/15 shows cellulitis of proximal left forearm and abscess of distal arm. No fevers. Concern for endocarditis as well. Upper extremity ultrasound of right arm 06/16 showing no obvious abscess but did show complex hypodense collection of fluid Leukocytosis on admission resolved Urine culture 06/15 showing no growth so far Blood culture 06/15 showing no growth so far 2-D echo ordered for evaluation of endocarditis: Unremarkable study with EF 55 60 percent, no vegetations noted Ortho consulted: appreciate recommendation * general surgery and hand were consulted but reported that this case would best be served by ortho * I&D bilateral arms performed 06/16 (Dr. Boyd) Antibiotic course: * Linezolid 06/15- * Zosyn 06/15- Imaging: * Right arm US 06/16: no obvious abscess but did show complex hypodense collection of fluid * CT left arm 06/15: ulceration of the proximal forearm skin with subcutaneous edema and cellulitis suspected. Abscess within the distal arm deep subcutaneous tissue * CXR 06/14: unremarkable except for hyperinflation (2) IVDU (intravenous drug user) Status: Chronic Plan: Hx of IV drug use with cocaine. Denies any other drug use that she could be withdrawing from. * Endocarditis workup negative (3) Nutrition, metabolism, and development symptoms Status: Acute Plan: Diet: Regular diet Fluids: PO Electrolytes: Monitor and replete as needed GI PPX: none indicated Access: Central line in the RIJ. We'll continue as this is only IV access at this time. Monitor for signs of infection DVT PPX: Carlee Herring MD R2 Jun 19, 2017 09:21 GI PPX: none indicated Access: Central line in the RIJ. We'll continue as this is only IV access at this time. Monitor for signs of infection DVT PPX: Early ambulation. Start chemical anticoagulation 06/18 Carlee Griffin MD R2 Jun 19, 2017 09:21
[2017-06-19 12:00] VITALS: BP 147/84; PULSE 68; RESP 20; TEMP 97.8; O2SAT 99
[2017-06-19 16:00] VITALS: BP 137/64; PULSE 68; RESP 20; TEMP 98.3; O2SAT 96
[2017-06-19 20:00] VITALS: BP 144/65; PULSE 59; RESP 18; TEMP 98.3; O2SAT 95
[2017-06-20] VITALS: BP 139/65; PULSE 71; RESP 20; TEMP 98.3; O2SAT 96
[2017-06-20] MEDS: PIPERACIL-TAZO 4.5 GM PREMIX 100 ML IV SCH ×5 (00:12→23:32)
[2017-06-20] MEDS: oxyCODONE/ACETAMINOPHEN 10 MG/325 MG TAB PO PRN ×3 (03:11→21:49)
[2017-06-20 04:00] VITALS: BP 136/70; PULSE 60; RESP 18; TEMP 98.3; O2SAT 100
[2017-06-20 06:04] LABS: AUTOMATED NEUTROPHIL # 3.2 TH/MM3 (1.8-7.7); BASOPHIL # 0.1 TH/MM3 (0-0.2); BASOPHIL % 1.1 % (0.0-2.0); EOSINOPHIL # 0.2 TH/MM3 (0-0.4); EOSINOPHIL % 3.1 % (0.0-4.0); HEMATOCRIT 26.3 % (35.0-46.0); HEMO FLAGS DIFF FINAL; LYMPH % 37.9 % (9.0-44.0); LYMPHOCYTE # 2.4 TH/MM3 (1.0-4.8); MEAN CELL VOLUME 89.9 FL (80.0-100.0); MEAN CORPUSCULAR HGB CONC 34.5 % (32.0-36.0); MONO % 6.6 % (0.0-8.0); NEUT % 51.3 % (16.0-70.0); PLATELET COUNT 256 TH/MM3 (150-450); RED BLOOD COUNT 2.92 MIL/MM3 (4.00-5.30); RED CELL DISTRIBUTION WIDTH 12.9 % (11.6-17.2); WHITE BLOOD COUNT 6.3 TH/MM3 (4.0-11.0)
[2017-06-20 06:29] LABS: ANION GAP 4 MEQ/L (5-15); AST (GOT) 22 U/L (15-37); BLOOD UREA NITROGEN 7 MG/DL (7-18); CHLORIDE 104 MEQ/L (98-107); GLOMERULAR FILTRATION RATE 88 ML/MIN (>89); SODIUM (NA) 137 MEQ/L (136-145)
[2017-06-20 06:30] LABS: ALT (GPT) 13 U/L (10-53)
[2017-06-20 06:32] LABS: ALKALINE PHOSPHATASE 63 U/L (45-117); TOTAL BILIRUBIN ADULT 0.2 MG/DL (0.2-1.0)
[2017-06-20 08:00] VITALS: BP 134/74; PULSE 67; RESP 16; TEMP 98.1; O2SAT 91
[2017-06-20] MEDS: LACTOBACILLUS ACIDOPHILUS 1 GM PACKET PO SCH ×3 (09:00→16:15)
[2017-06-20] MEDS: SODIUM CHLORIDE 0.9% FLUSH 10 ML FLUSH IV FLUSH SCH ×2 (09:00→21:00)
[2017-06-20] MEDS: DOCUSATE SODIUM 50 MG/SENNA 8.6 MG TAB PO SCH ×2 (09:00→21:00)
[2017-06-20] MEDS: ENOXAPARIN SODIUM 40 MG/0.4 ML SYRINGE SQ SCH ×2 (09:16→09:21)
[2017-06-20] MEDS: LINEZOLID 600 MG PREMIX 300 ML IV SCH ×2 (09:16→21:49)
[2017-06-20 12:00] VITALS: BP 154/81; PULSE 70; RESP 16; TEMP 98.2; O2SAT 92
--- NOTE | 2017-06-20 14:37 | PD.ID.CON ---
History of Present Illness Service Infectious disease Consult Requested By Dr. Katheryn Griffin Reason for Consult Evaluation and management of bilateral upper extremity abscesses Primary Care Physician No Primary Care Physician Diagnoses: History of Present Illness Ms. Chin is a 26 yo AAF who is presenting in the ED with bilateral upper extremity skin infections. Pt states that 6 days ago she noticed a swelling on the medial aspect of her L arm slightly distal to the elbow. She had a similar lesion on her R arm about 3 months ago that was still present. In both arms she began to experience pain, swelling and stiffness (worse on L than R). She attempted to miguel both lesions at home, but states only a small amount of pus was drained. Patient came to the ED at [facility] approximately 2 days ago and had both lesions I&D and packed. She was sent home on Bactrim. Since that time she reports worsening stiffness, swelling and pain in her L arm and now reports numbness on the lateral aspect of her forearm. She has been taking Tylenol 500 mg every 8-12 hours for pain and occasionally Aleve. She reports nausea, headache, and subjective fevers. Cultures from that ER visit showed strep not ABD. Patient underwent I&D of bilateral abscesses (partially treated at this point with bactrim and IV antibiotics). The intra op cultures are no growth so far. ID consulted for evaluation and Mment of bilateral UE cellulitis/abscesses. Review of Systems ROS Limitations: Uncooperative, Poor Historian Past Family Social History Allergies: Coded Allergies: Vancomycin (Verified Allergy, Severe, RASH, 09/06/16) Past Medical History Skin infections Ovarian cysts h/o gastritis History of infection in the finger status post I&D in the past. Past Surgical History Multiple hand surgeries (fingernail infections), C section x1 Reported Medications Reported Meds & Active Scripts Active Tramadol (Tramadol HCl) 50 Mg Tab 50 Mg PO Q4H PRN Bactrim DS (Sulfamethoxazole-Trimethoprim) 800-160 Mg Tab 1 Tab PO BID Reported Mapap (Acetaminophen) 500 Mg Tab 1,000 Mg PO TID PRN Active Ordered Medications Current Medications Medications (Trade) Dose Ordered Sig/Joselin Route Start Time Stop Time Status Last Admin Linezolid 300 ml @ 300 mls/hr Q12H IV 06/16/17 08:00 06/20/17 09:16 (Zosyn 4.5 Gm Premix) 100 ml @ 200 mls/hr Q6H IV 06/16/17 06:00 06/20/17 16:15 (NS Flush) 2 ml UNSCH PRN IV FLUSH 06/16/17 20:45 (NS Flush) 2 ml BID IV FLUSH 06/16/17 21:00 06/20/17 09:00 (Zofran Inj) 4 mg Q6H PRN IV 06/16/17 20:45 (Ambien) 5 mg HS PRN PO 06/16/17 20:45 (Lactinex Pkt) 1 gm TID PO 06/18/17 18:00 06/20/17 16:15 (Percocet 5-325 Mg) 1 tab Q6H PRN PO 06/18/17 13:30 (Percocet 10-325 Mg) 1 tab Q6H PRN PO 06/18/17 13:30 06/20/17 12:09 (Morphine Inj) 2 mg Q3H PRN IV 06/18/17 13:30 (Narcan Inj) 0.4 mg UNSCH PRN IV 06/18/17 13:30 (Tasha-Colace) 1 tab BID PO 06/18/17 21:00 (Milk Of Magnesia Liq) 30 ml Q12H PRN PO 06/18/17 13:30 06/18/17 14:21 (Senokot) 17.2 mg Q12H PRN PO 06/18/17 13:30 (Dulcolax Supp) 10 mg DAILY PRN RECTAL 06/18/17 13:30 (Lactulose Liq) 30 ml DAILY PRN PO 06/18/17 13:30 (Lovenox Inj) 40 mg Q24H SQ 06/20/17 10:00 Family History Per family program specialist note. Patient was not cooperative Maternal - HTN, Maternal grandmother - DM, HTN Maternal grandfather - lung cancer Paternal - unknown Siblings - no medical problems Social History Homeless - states she is moving from place to place Alcohol - 1-2 drinks a week Tobacco - 0.5 ppd Illicit - Marijuana (not everyday), Cocaine (nasal), IVDU (cocaine - R and L arm x 1) Physical Exam Vital Signs Vital Signs Date Time Temp Pulse Resp B/P Pulse Ox O2 Delivery O2 Flow Rate FiO2 06/20/17 12:00 98.2 70 16 154/81 92 06/20/17 08:00 98.1 67 16 134/74 91 06/20/17 04:00 98.3 60 18 136/70 100 06/20/17 00:00 98.3 71 20 139/65 96 06/19/17 20:00 98.3 59 18 144/65 95 06/19/17 16:00 98.3 68 20 137/64 96 Physical Exam GENERAL: This is a well-nourished, well-developed patient, in no apparent distress. SKIN: Multiple track logan noted. HEAD: Atraumatic. Normocephalic. No temporal or scalp tenderness. EYES: Pupils equal round and reactive. Extraocular motions intact. No scleral icterus. No injection or drainage. ENT: Nose without bleeding, purulent drainage or septal hematoma. Throat without erythema, tonsillar hypertrophy or exudate. Uvula midline. Airway patent. NECK: Trachea midline. Supple, nontender, no meningeal signs. CARDIOVASCULAR: Regular rate and rhythm without murmurs, gallops, or rubs. RESPIRATORY: Clear to auscultation. Breath sounds equal bilaterally. No wheezes , rales, or rhonchi. GASTROINTESTINAL: Abdomen soft, non-tender, nondistended. MUSCULOSKELETAL: Bilateral inner aspect of forearms with induration, tenderness and mild warmth noted. NEUROLOGICAL: Awake and alert. Grossly nonfocal. Psych gets very agitated. IV line sites with no evidence of infection. Laboratory Laboratory Tests Test 06/20/17 05:40 White Blood Count 6.3 Red Blood Count 2.92 Hemoglobin 9.1 Hematocrit 26.3 Mean Corpuscular Volume 89.9 Mean Corpuscular Hemoglobin 31.0 Mean Corpuscular Hemoglobin 34.5 Concent Red Cell Distribution Width 12.9 Platelet Count 256 Mean Platelet Volume 9.1 Neutrophils (%) (Auto) 51.3 Lymphocytes (%) (Auto) 37.9 Monocytes (%) (Auto) 6.6 Eosinophils (%) (Auto) 3.1 Basophils (%) (Auto) 1.1 Neutrophils # (Auto) 3.2 Lymphocytes # (Auto) 2.4 Monocytes # (Auto) 0.4 Eosinophils # (Auto) 0.2 Basophils # (Auto) 0.1 CBC Comment DIFF FINAL Differential Comment Sodium Level 137 Potassium Level 4.0 Chloride Level 104 Carbon Dioxide Level 29.0 Anion Gap 4 Blood Urea Nitrogen 7 Creatinine 0.92 Estimat Glomerular Filtration 88 Rate Random Glucose 101 Calcium Level 8.7 Total Bilirubin 0.2 Aspartate Amino Transf 22 (AST/SGOT) Alanine Aminotransferase 13 (ALT/SGPT) Alkaline Phosphatase 63 Total Protein 5.9 Albumin 2.0 HIV (1&2) Antibody NEGATIVE Date/Time Procedure Status Source Growth 06/16/17 20:50 Gram Stain - Final Resulted Wound Arm 06/16/17 20:50 Wound Culture - Preliminary Resulted Wound Arm IMMATURE GROWTH - REINCUBATE 06/16/17 20:50 Fungal Smear - Final Resulted Wound Arm NO FUNGAL ELEMENTS SEEN. 06/16/17 20:50 Fungal Culture Resulted Wound Arm Pending 06/16/17 20:50 Acid Fast Stain - Final Resulted Wound Arm NO ACID FAST BACILLI SEEN 06/16/17 20:50 Mycobacterial Culture Resulted Wound Arm Pending 06/15/17 21:15 Urine Culture - Final Complete Urine Catheterized Urine NO GROWTH IN 48 HOURS. 06/15/17 18:30 Aerobic Blood Culture - Final Complete Blood Peripheral NO GROWTH IN 5 DAYS 06/15/17 18:30 Anaerobic Blood Culture - Final Complete Blood Peripheral NO GROWTH IN 5 DAYS Result Diagram: 06/20/17 0540 06/20/17 0540 Imaging Last Impressions Upper Extremity Ultrasound 06/16/17 0000 Signed Impressions: Service Date/Time: May 14:38 - CONCLUSION: Marked soft tissue edema without drainable fluid collection or abscess. The hypodense collection seen on the CT scan is more complicated than it appears on the CT scan . The area could be aspirated but I don't believe there significant material for drainage catheter . Mack Mar MD Central Venous Line 06/16/17 0000 Signed Impressions: Service Date/Time: May 15:35 - CONCLUSION: Uncomplicated line placement as above. Randall Caldwell MD Chest X-Ray 06/15/17 1820 Signed Impressions: Service Date/Time: Thursday, June 15, 2017 18:32 - CONCLUSION: 1. Hyperinflation. Geoffrey Miller MD Upper Extremity CT 06/15/17 0000 Signed Impressions: Service Date/Time: Thursday, June 15, 2017 20:59 - CONCLUSION: 1. There is ulceration of the proximal forearm skin with subcutaneous edema and cellulitis suspected. 2. In addition there is an abscess identified within the distal arm deep subcutaneous tissue. Geoffrey Miller MD Assessment and Plan Assessment and Plan Bilateral UE cellulitis present on admission Risk factor: IVDA Partially treated with bactrim. Strep not A, B, D on 06/09/2017 ED visit abscess culture from I&D. Vancomycin allergy: severe rash not Red man per patient. Not a candidate for Dalvance. Recs Continue Zosyn IV and Zyvox for now Will likely transition to oral on discharge. Follow intraop cultures Follow clinically. [email or web address] pt and RN taking care of patient. Patient believes she does not have any infections. Intraop note discussed with patient with purulence and the fact that she is partially treated. Explained to her abscesses have to be drained in conjunction with antibiotic therapy for effective therapy. She continued to be upset when I told her I strongly believe she has infection in bilateral UE. Joaquina Rojo MD Jun 20, 2017 14:37
--- NOTE | 2017-06-20 14:47 | HHI.FPPN ---
Subjective Remarks Patient seen and examined this morning. Afebrile vital signs stable. Patient overall is doing well and in good spirits. She is working with physical therapy , says she's still having pain but it is improving. Explained to patient that we are awaiting recommendations by infectious disease for senior care antibiotics for disposition. She understands this plan of care and is currently happy with being in the hospital. Endorses: Left and right arm and elbow pain Denies: Fever, chills, nausea, vomiting, shortness of breath, chest pain, headache, abdominal pain, calf pain (Derrick Hurst MD R2) Objective Vitals Vital Signs Date Time Temp Pulse Resp B/P Pulse Ox O2 Delivery O2 Flow Rate FiO2 06/20/17 12:00 98.2 70 16 154/81 92 06/20/17 08:00 98.1 67 16 134/74 91 06/20/17 04:00 98.3 60 18 136/70 100 06/20/17 00:00 98.3 71 20 139/65 96 06/19/17 20:00 98.3 59 18 144/65 95 06/19/17 16:00 98.3 68 20 137/64 96 I/O 06/19/17 06/19/17 06/19/17 06/20/17 06/20/17 06/20/17 07:00 15:00 23:00 07:00 15:00 23:00 Intake Total 120 ml 480 ml 523 ml Balance 120 ml 480 ml 523 ml Intake Oral 120 ml 480 ml IV Total 523 ml # Voids 1 4 4 # Bowel Movements 1 3 3 (Derrick Hurst MD R2) Result Diagram: 06/20/17 0540 06/20/17 0540 Imaging Last Impressions Upper Extremity Ultrasound 06/16/17 0000 Signed Impressions: Service Date/Time: May 14:38 - CONCLUSION: Marked soft tissue edema without drainable fluid collection or abscess. The hypodense collection seen on the CT scan is more complicated than it appears on the CT scan . The area could be aspirated but I don't believe there significant material for drainage catheter . Mack Mar MD Central Venous Line 06/16/17 0000 Signed Impressions: Service Date/Time: May 15:35 - CONCLUSION: Uncomplicated line placement as above. Randall Caldwell MD Chest X-Ray 06/15/17 1820 Signed Impressions: Service Date/Time: Thursday, June 15, 2017 18:32 - CONCLUSION: 1. Hyperinflation. Geoffrey Miller MD Upper Extremity CT 06/15/17 0000 Signed Impressions: Service Date/Time: Thursday, June 15, 2017 20:59 - CONCLUSION: 1. There is ulceration of the proximal forearm skin with subcutaneous edema and cellulitis suspected. 2. In addition there is an abscess identified within the distal arm deep subcutaneous tissue. Geoffrey Miller MD Objective Remarks GENERAL: Well-nourished female sitting up in bed comfortably SKIN: No new skin abnormalities noted HEENT: Atraumatic. Normocephalic. Pupils equal and round. No scleral icterus. No injection or drainage. No nasal bleeding or discharge. Mucous membranes pink and moist. NECK: Trachea midline. No JVD. CARDIOVASCULAR: Regular rate and rhythm. No murmurs on auscultation. Normal cap refill distally. RESPIRATORY: No accessory muscle use. Clear to auscultation bilaterally. Breath sounds equal bilaterally. GASTROINTESTINAL: Abdomen soft, non-tender, nondistended. Hypoactive bowel sounds. Hepatic and splenic margins not palpable. MUSCULOSKELETAL: Distal forearms wrapped with gauze dressings. Dressings appear clean and dry. Normal ROM of the fingers. Extremities without clubbing, cyanosis, or edema. NEUROLOGICAL: Awake and alert. No obvious cranial nerve deficits. Motor grossly within normal limits. Grossly normal muscle strength. Normal speech. PSYCHIATRIC: Appropriate mood and affect; insight and judgment normal. Procedures 06/16/17 s/p I&D bilateral forearm abscesses Medications and IVs Current Medications Medications (Trade) Dose Ordered Sig/Joselin Route Start Time Stop Time Status Last Admin Linezolid 300 ml @ 300 mls/hr Q12H IV 06/16/17 08:00 06/20/17 09:16 (Zosyn 4.5 Gm Premix) 100 ml @ 200 mls/hr Q6H IV 06/16/17 06:00 06/20/17 11:16 (NS Flush) 2 ml UNSCH PRN IV FLUSH 06/16/17 20:45 (NS Flush) 2 ml BID IV FLUSH 06/16/17 21:00 06/20/17 09:00 (Zofran Inj) 4 mg Q6H PRN IV 06/16/17 20:45 (Ambien) 5 mg HS PRN PO 06/16/17 20:45 (Lactinex Pkt) 1 gm TID PO 06/18/17 18:00 06/20/17 11:16 (Percocet 5-325 Mg) 1 tab Q6H PRN PO 06/18/17 13:30 (Percocet 10-325 Mg) 1 tab Q6H PRN PO 06/18/17 13:30 06/20/17 12:09 (Morphine Inj) 2 mg Q3H PRN IV 06/18/17 13:30 (Narcan Inj) 0.4 mg UNSCH PRN IV 06/18/17 13:30 (Tasha-Colace) 1 tab BID PO 06/18/17 21:00 (Milk Of Magnesia Liq) 30 ml Q12H PRN PO 06/18/17 13:30 06/18/17 14:21 (Senokot) 17.2 mg Q12H PRN PO 06/18/17 13:30 (Dulcolax Supp) 10 mg DAILY PRN RECTAL 06/18/17 13:30 (Lactulose Liq) 30 ml DAILY PRN PO 06/18/17 13:30 (Lovenox Inj) 40 mg Q24H SQ 06/20/17 10:00 (Derrick Hurst MD R2) Date of Insertion: Jun 16, 2017 Line: Central Venous Catheter Side: Right Location: Internal, Jugular (Derrick Hurst MD R2) A/P Assessment and Plan 26 yo AAF admitted for with bilateral upper extremity cellulitis and abscess Discharge Planning Pending recommendations from infectious disease regarding antibiotic selection and duration. Patient has been cleared by orthopedic surgery. Seen and discussed with Dr. Dozier (Derrick Hurst MD R2) Attending Attestation Patients case was dicussed in detail with resident medical team,examination performed, EMR reviewed, agree with Admission, Assessment and Plan, See Orders. (Cezar Dozier MD) Problem List: (1) Cellulitis Status: Acute Plan: * Infectious disease consulted regarding antibiotic selection and duration as this will play a large role in discharge planning, appreciate recommendations. * Continue pain management with Percocet and morphine when necessary * Continue antibiotics as below * Postop H&H reviewed, stable * Ortho has cleared patient for discharge home * Likely discharge 1-2 days, monitoring pain and operative cultures 2-D echo ordered for evaluation of endocarditis: Unremarkable study with EF 55 60 percent, no vegetations noted Ortho consulted: appreciate recommendation * general surgery and hand were consulted but reported that this case would best be served by ortho * I&D bilateral arms performed 06/16 (Dr. Boyd) Antibiotic course: * Linezolid 06/15- * Zosyn 06/15- (2) IVDU (intravenous drug user) Status: Chronic Plan: Hx of IV drug use with cocaine. Denies any other drug use that she could be withdrawing from. * Endocarditis workup negative (3) Nutrition, metabolism, and development symptoms Status: Acute Plan: Diet: Regular diet Fluids: PO Electrolytes: Monitor and replete as needed GI PPX: none indicated Access: Central line in the RIJ. We'll continue as this is only IV access at this time. Monitor for signs of infection DVT PPX: Lovenox (Derrick Hurst MD R2) Derrick Hurst MD R2 Jun 20, 2017 14:47 Cezar Dozier MD Jun 20, 2017 18:43
[2017-06-20 16:00] VITALS: BP 159/81; PULSE 66; RESP 17; TEMP 98.2; O2SAT 97
[2017-06-20 20:00] VITALS: BP 163/91; PULSE 59; RESP 20; TEMP 98.8; O2SAT 96
[2017-06-21] VITALS: BP 150/71; PULSE 62; RESP 18; TEMP 98.4; O2SAT 99
[2017-06-21 04:00] VITALS: BP 131/61; PULSE 62; RESP 18; TEMP 98.2; O2SAT 100
[2017-06-21] MEDS: PIPERACIL-TAZO 4.5 GM PREMIX 100 ML IV SCH ×4 (06:00→23:19)
[2017-06-21 07:00] LABS: HEMATOCRIT 30.1 % (35.0-46.0); MEAN CELL VOLUME 89.6 FL (80.0-100.0); MEAN CORPUSCULAR HEMOGLOBIN 31.2 PG (27.0-34.0); MEAN CORPUSCULAR HGB CONC 34.9 % (32.0-36.0); PLATELET COUNT 316 TH/MM3 (150-450); RED BLOOD COUNT 3.36 MIL/MM3 (4.00-5.30); RED CELL DISTRIBUTION WIDTH 12.7 % (11.6-17.2); REVIEW FLAG FINAL; WHITE BLOOD COUNT 5.3 TH/MM3 (4.0-11.0)
[2017-06-21 07:19] LABS: BICARBONATE 29.7 MEQ/L (21.0-32.0); POTASSIUM 4.2 MEQ/L (3.5-5.1)
[2017-06-21 08:00] VITALS: BP 137/77; PULSE 66; RESP 16; TEMP 97.7; O2SAT 97
[2017-06-21] MEDS: LINEZOLID 600 MG PREMIX 300 ML IV SCH ×2 (09:02→23:19)
[2017-06-21] MEDS: LACTOBACILLUS ACIDOPHILUS 1 GM PACKET PO SCH ×3 (09:03→17:03)
[2017-06-21] MEDS: DOCUSATE SODIUM 50 MG/SENNA 8.6 MG TAB PO SCH ×2 (09:03→21:00)
[2017-06-21] MEDS: SODIUM CHLORIDE 0.9% FLUSH 10 ML FLUSH IV FLUSH SCH ×2 (09:03→21:00)
[2017-06-21] MEDS: ENOXAPARIN SODIUM 40 MG/0.4 ML SYRINGE SQ SCH ×2 (09:04→09:05)
[2017-06-21 12:00] VITALS: BP 131/73; PULSE 61; RESP 16; TEMP 97.8; O2SAT 98
[2017-06-21 14:40] LABS: BLOOD, URINE NEG (NEG); GLUCOSE,URINE NEG (NEG); KETONE, URINE NEG (NEG); NITRITE,URINE NEG (NEG); URINE COLOR LIGHT-YELLOW (YELLW/STRAW)
[2017-06-21 14:43] LABS: COMMENT (UR) CULT NOT INDICATED; CULTURE IF INDICATED CULT NOT INDICATED
[2017-06-21 15:24] LABS: BETA HCG QUANT LESS THAN 1 MIU/ML (0-5)
[2017-06-21 16:00] VITALS: BP_SYST 130; BP_SYST 143; BP_DIAS 58; BP_DIAS 72; PULSE 60; RESP 16; TEMP 97.7; O2SAT 100; O2SAT 96
--- NOTE | 2017-06-21 16:32 | HHI.FPPN ---
Subjective Remarks Patient seen and examined this morning. Patient states that her forearms are feeling better. She currently complains of some cloudiness to her urine. No change in odor, frequency or complaint of pain on urination. Recent reports of diarrhea, liquid, brown, no red streaks or black specks. Patient also notes that she is having troubles extending her left arm past 90 degrees. She reports that it started several days ago along with her arm accesses, has not improved, is painful to extend and has a "tense bunch" in her upper arm. No redness or swelling. No nausea, vomiting, fever, chills, chest pain, shortness of breath, abdominal pain. No additional complaints. Objective Vitals Vital Signs Date Time Temp Pulse Resp B/P Pulse Ox O2 Delivery O2 Flow Rate FiO2 06/21/17 16:00 97.7 60 16 143/72 100 06/21/17 12:00 97.8 61 16 131/73 98 06/21/17 08:00 97.7 66 16 137/77 97 06/21/17 04:00 98.2 62 18 131/61 100 06/21/17 00:00 98.4 62 18 150/71 99 06/20/17 20:00 98.8 59 20 163/91 96 I/O 06/20/17 06/20/17 06/20/17 06/21/17 06/21/17 06/21/17 07:00 15:00 23:00 07:00 15:00 23:00 Intake Total 523 ml 960 ml 1940 ml Balance 523 ml 960 ml 1940 ml Intake Oral 960 ml 1440 ml IV Total 523 ml 500 ml # Voids 4 4 3 5 # Bowel Movements 3 3 3 Result Diagram: 06/21/1720 06/21/17 0620 Objective Remarks GENERAL: Well-nourished female sitting up in bed comfortably SKIN: No new skin abnormalities noted HEENT: Atraumatic. Normocephalic. Pupils equal and round. No scleral icterus. No injection or drainage. No nasal bleeding or discharge. Mucous membranes pink and moist. NECK: Trachea midline. No JVD. CARDIOVASCULAR: Regular rate and rhythm. No murmurs on auscultation. Normal cap refill distally. RESPIRATORY: No accessory muscle use. Clear to auscultation bilaterally. Breath sounds equal bilaterally. GASTROINTESTINAL: Abdomen soft, non-tender, nondistended. Hypoactive bowel sounds. Hepatic and splenic margins not palpable. MUSCULOSKELETAL: Distal forearms wrapped with gauze dressings. Dressings appear clean and dry. Left arm resistant to extension past 90 degrees due to pain. Tenderness to left distal medial upper arm. Density palpated under the skin approximately 2-3 cm in length and 1.5 cm in width. No fluctuance, edema, erythema. Normal ROM of the fingers. Extremities without clubbing, cyanosis, or edema. NEUROLOGICAL: Awake and alert. No obvious cranial nerve deficits. Motor grossly within normal limits. Grossly normal muscle strength. Normal speech. PSYCHIATRIC: Appropriate mood and affect; insight and judgment normal. Procedures 06/16/17 s/p I&D bilateral forearm abscesses Date of Insertion: Jun 16, 2017 Line: Central Venous Catheter Side: Right Location: Internal, Jugular A/P Assessment and Plan 26 yo AAF admitted for with bilateral upper extremity cellulitis and abscess Discharge Planning Pending recommendations from infectious disease regarding antibiotic selection and duration. Patient has been cleared by orthopedic surgery. Seen and discussed with Dr. Dozier Problem List: (1) Cellulitis Status: Acute Plan: * Infectious disease consulted regarding antibiotic selection and duration as this will play a large role in discharge planning, appreciate recommendations. * Continue pain management with Percocet and morphine when necessary * Continue antibiotics as below * Postop H&H reviewed, stable * Ortho has cleared patient for discharge home * Likely discharge 1-2 days, monitoring pain and operative cultures * F/U with ID antibiotic recommendations prior to discharge 2-D echo ordered for evaluation of endocarditis: Unremarkable study with EF 55 60 percent, no vegetations noted Ortho consulted: appreciate recommendation * general surgery and hand were consulted but reported that this case would best be served by ortho * I&D bilateral arms performed 06/16 (Dr. Boyd) Antibiotic course: * Linezolid 06/15- * Zosyn 06/15- (2) Diarrhea Status: Acute Plan: On antibiotics as stated above. - F/U C. Diff screen (3) Decreased range of motion of upper extremity Status: Acute Plan: Difficulty extending elbow past 90 degrees since admission. Currently seen and evaluated by PT/OT * Continue PT/OT * K Thermia * Observe for improvement/change in morning (4) IVDU (intravenous drug user) Status: Chronic Plan: Hx of IV drug use with cocaine. Denies any other drug use that she could be withdrawing from. * Endocarditis workup negative (5) Nutrition, metabolism, and development symptoms Status: Acute Plan: Diet: Regular diet Fluids: PO Electrolytes: Monitor and replete as needed GI PPX: none indicated Access: Central line in the RIJ. We'll continue as this is only IV access at this time. Monitor for signs of infection DVT PPX: Leonelax Jacob Lopez MD R1 Jun 21, 2017 16:32
--- NOTE | 2017-06-21 16:47 | HHI.PR ---
Addendum to Inpatient Note Addendum Reason: Additional Documentation Additional Information d/w FM resident to call me in am for DC planning. Wound cultures this admission are normal resp jody. Prior ED visit abscess cultures positive for Strep and pt partially treated for this. If repeat BCX negative and continues to do well will consider patient assistance for Dalvance one time dose for treatment of residual cellulitis. Concern for compliance with oral medications or follow up visits in the infusion clinic hence would be a good candidate for Dalvance if approved. Joaquina Rojo MD Jun 21, 2017 16:47
[2017-06-21 20:00] VITALS: BP 139/81; PULSE 75; RESP 18; TEMP 97.8; O2SAT 99
[2017-06-21] MEDS: oxyCODONE/ACETAMINOPHEN 10 MG/325 MG TAB PO PRN (23:18)
[2017-06-22] VITALS: BP_SYST 121; BP_SYST 128; BP_DIAS 59; BP_DIAS 67; PULSE 56; PULSE 65; RESP 18; TEMP 97.9; TEMP 98; O2SAT 98; O2SAT 99
[2017-06-22] MEDS: PIPERACIL-TAZO 4.5 GM PREMIX 100 ML IV SCH ×2 (05:47→12:12)
[2017-06-22 06:32] LABS: HEMATOCRIT 32.4 % (35.0-46.0); MEAN CELL VOLUME 90.7 FL (80.0-100.0); MEAN CORPUSCULAR HEMOGLOBIN 30.6 PG (27.0-34.0); MEAN CORPUSCULAR HGB CONC 33.7 % (32.0-36.0); PLATELET COUNT 346 TH/MM3 (150-450); RED BLOOD COUNT 3.57 MIL/MM3 (4.00-5.30); RED CELL DISTRIBUTION WIDTH 12.7 % (11.6-17.2); REVIEW FLAG FINAL; WHITE BLOOD COUNT 5.2 TH/MM3 (4.0-11.0)
[2017-06-22 08:03] VITALS: BP 125/60; PULSE 55; RESP 18; TEMP 97.2; O2SAT 99
[2017-06-22] MEDS: SODIUM CHLORIDE 0.9% FLUSH 10 ML FLUSH IV FLUSH SCH ×2 (08:42→22:11)
[2017-06-22] MEDS: LINEZOLID 600 MG PREMIX 300 ML IV SCH ×2 (08:42→22:10)
[2017-06-22] MEDS: LACTOBACILLUS ACIDOPHILUS 1 GM PACKET PO SCH ×3 (08:42→17:10)
[2017-06-22] MEDS: DOCUSATE SODIUM 50 MG/SENNA 8.6 MG TAB PO SCH ×2 (08:43→21:00)
[2017-06-22] MEDS: ENOXAPARIN SODIUM 40 MG/0.4 ML SYRINGE SQ SCH (08:43)
--- NOTE | 2017-06-22 11:43 | HHI.DCPOC ---
Discharge Care Plan Diagnosis: (1) IVDU (intravenous drug user) (2) Cellulitis (3) Diarrhea (4) Abscess of left forearm (5) Abscess of right forearm (6) Decreased range of motion of upper extremity Goals to Promote Your Health * To prevent worsening of your condition and complications * To maintain your health at the optimal level Directions to Meet Your Goals Take your medications as prescribed Follow your dietary instruction Follow activity as directed Keep your appointments as scheduled Take your immunizations and boosters as scheduled If your symptoms worsen call your PCP, if no PCP go to Urgent Care Center or Emergency Room Smoking is Dangerous to Your Health. Avoid second hand smoke Call the 24-hour hour crisis hotline for domestic abuse at Carlee Griffin MD R2 Jun 22, 2017 11:43
--- NOTE | 2017-06-22 11:50 | HHI.FPPN ---
Subjective Remarks Patient seen and examined this morning. No acute events overnight. Patient has been afebrile, vital signs stable. Pt previously endorsed diarrhea. Per conversation with her nurse stools are formed and have not been liquid. She denies chest pain, shortness of breath. She has no acute concerns. Objective Vitals Vital Signs Date Time Temp Pulse Resp B/P Pulse Ox O2 Delivery O2 Flow Rate FiO2 06/22/17 08:03 97.2 55 18 125/60 99 06/22/17 00:00 97.9 56 18 121/59 98 06/22/17 00:00 98.0 65 18 128/67 99 06/21/17 20:00 97.8 75 18 139/81 99 06/21/17 16:00 97.7 60 16 143/72 100 06/21/17 12:00 97.8 61 16 131/73 98 I/O 06/21/17 06/21/17 06/21/17 06/22/17 06/22/17 06/22/17 06:59 14:59 22:59 06:59 14:59 22:59 Intake Total 1940 ml Balance 1940 ml Intake Oral 1440 ml IV Total 500 ml # Voids 3 5 4 # Bowel Movements 3 3 1 Result Diagram: 06/22/17 0550 06/21/17 0620 Objective Remarks GENERAL: Well-nourished female sitting up in bed comfortably SKIN: No new skin abnormalities noted HEENT: Atraumatic. Normocephalic. Pupils equal and round. No scleral icterus. No injection or drainage. No nasal bleeding or discharge. Mucous membranes pink and moist. NECK: Trachea midline. No JVD. CARDIOVASCULAR: Regular rate and rhythm. No murmurs on auscultation. RESPIRATORY: No accessory muscle use. Breath sounds equal bilaterally. GASTROINTESTINAL: Abdomen soft, non-tender, nondistended. MUSCULOSKELETAL: Distal forearms wrapped with gauze dressings. Dressings appear clean and dry. Wounds on distal upper extremities with stitches intact. No significant drainage. Left arm resistant to extension past 90 degrees due to pain. Tenderness to left distal medial upper arm. Density palpated under the skin approximately 2-3 cm in length and 1.5 cm in width. No fluctuance, edema, erythema. Normal ROM of the fingers. Extremities without clubbing, cyanosis, or edema. NEUROLOGICAL: Awake and alert. No obvious cranial nerve deficits. Motor grossly within normal limits. Grossly normal muscle strength. Normal speech. PSYCHIATRIC: Appropriate mood and affect; insight and judgment normal. Procedures 06/16/17 s/p I&D bilateral forearm abscesses Date of Insertion: Jun 16, 2017 Line: Central Venous Catheter Side: Right Location: Internal, Jugular A/P Assessment and Plan 26 yo AAF admitted with bilateral upper extremity cellulitis and abscess. Discharge Planning Gorman has been cleared by orthopedic surgery and infectious disease. Anticipate discharge later today. Problem List: (1) Cellulitis Status: Acute Plan: Infectious disease consulted regarding antibiotic selection and duration as this will play a large role in discharge planning, appreciate recommendations. * Continue pain management with Percocet and morphine when necessary * Continue antibiotics as below 2-D echo ordered for evaluation of endocarditis: Unremarkable study with EF 55 60 percent, no vegetations noted Ortho consulted: appreciate recommendation * general surgery and hand were consulted but reported that this case would best be served by ortho * I&D bilateral arms performed 06/16 (Dr. Boyd) * Patient cleared for discharge Antibiotic course: * Linezolid 06/15-06/22: Completed * Zosyn 06/15-06/22: Completed * Pt to receive one time dose of Dalvance, then cleared for discharge (2) Diarrhea Status: Acute Plan: Resolved. We'll cancel C. difficile as patient has not had any additional liquid stools. (3) Decreased range of motion of upper extremity Status: Acute Plan: Difficulty extending elbow past 90 degrees since admission. Currently seen and evaluated by PT/OT * Continue PT/OT * K Thermia * Observe for improvement/change in morning (4) IVDU (intravenous drug user) Status: Chronic Plan: Hx of IV drug use with cocaine. Denies any other drug use that she could be withdrawing from. * Endocarditis workup negative (5) Nutrition, metabolism, and development symptoms Status: Acute Plan: Diet: Regular diet Fluids: PO Electrolytes: Monitor and replete as needed GI PPX: none indicated Access: Central line in the RIJ. to be removed at time of discharge. DVT PPX: Lovenox Carlee Griffin MD R2 Jun 22, 2017 11:50 Carlee Griffin MD R2 Jun 22, 2017 11:50
[2017-06-22 12:05] VITALS: BP 150/73; PULSE 63; RESP 18; TEMP 97.2; O2SAT 96
[2017-06-22 16:00] VITALS: BP 158/84; PULSE 70; RESP 18; TEMP 98.8; O2SAT 97
[2017-06-22] MEDS ORDERED: diphenhydrAMINE HCL 50 MG/ML VIAL IV PUSH SCH (16:00)
[2017-06-22] MEDS ORDERED: IBUP-232 PO (16:33)
[2017-06-22] MEDS ORDERED: DALBAVANCIN 1,500 MG/D5W 500 ML IV ONE ×2 (17:00)
--- NOTE | 2017-06-22 17:03 | HHI.IDPN ---
Subjective Subjective Remarks Ms. Chin is a 26 yo AAF who is presenting in the ED with bilateral upper extremity skin infections. Pt states that 6 days ago she noticed a swelling on the medial aspect of her L arm slightly distal to the elbow. She had a similar lesion on her R arm about 3 months ago that was still present. In both arms she began to experience pain, swelling and stiffness (worse on L than R). She attempted to miguel both lesions at home, but states only a small amount of pus was drained. Patient came to the ED at [facility] approximately 2 days ago and had both lesions I&D and packed. She was sent home on Bactrim. Since that time she reports worsening stiffness, swelling and pain in her L arm and now reports numbness on the lateral aspect of her forearm. She has been taking Tylenol 500 mg every 8-12 hours for pain and occasionally Aleve. She reports nausea, headache, and subjective fevers. Cultures from that ER visit showed strep not ABD. Patient underwent I&D of bilateral abscesses (partially treated at this point with bactrim and IV antibiotics). The intra op cultures are no growth so far. ID consulted for evaluation and Mment of bilateral UE cellulitis/abscesses. Overnight events reviewed No fevers No rash No diarrhea Still complains of pain left elbow joint Antibiotics Zyvox IV Zosyn IV Lines Line sites with no e.o infection Past Medical History reviewed Allergies: Coded Allergies: No Known Allergies (Unverified , 06/22/17) Objective . Vital Signs Date Time Temp Pulse Resp B/P Pulse Ox O2 Delivery O2 Flow Rate FiO2 06/22/17 16:00 98.8 70 18 158/84 97 06/22/17 12:05 97.2 63 18 150/73 96 06/22/17 08:03 97.2 55 18 125/60 99 06/22/17 00:00 97.9 56 18 121/59 98 06/22/17 00:00 98.0 65 18 128/67 99 06/21/17 20:00 97.8 75 18 139/81 99 06/21/17 06/21/17 06/22/17 14:59 22:59 06:59 Intake Total 1940 ml Balance 1940 ml Intake Oral 1440 ml IV Total 500 ml # Voids 5 4 # Bowel Movements 3 1 . Laboratory Tests Test 06/21/17 06/22/17 06:20 05:50 White Blood Count 5.3 TH/MM3 5.2 TH/MM3 Red Blood Count 3.36 MIL/MM3 3.57 MIL/MM3 Hemoglobin 10.5 GM/DL 10.9 GM/DL Hematocrit 30.1 % 32.4 % Mean Corpuscular Volume 89.6 FL 90.7 FL Mean Corpuscular Hemoglobin 31.2 PG 30.6 PG Mean Corpuscular Hemoglobin 34.9 % 33.7 % Concent Red Cell Distribution Width 12.7 % 12.7 % Platelet Count 316 TH/MM3 346 TH/MM3 Mean Platelet Volume 8.8 FL 8.1 FL Laboratory Tests Test 06/21/17 06:20 Sodium Level 137 MEQ/L Potassium Level 4.2 MEQ/L Chloride Level 103 MEQ/L Carbon Dioxide Level 29.7 MEQ/L Anion Gap 4 MEQ/L Blood Urea Nitrogen 12 MG/DL Creatinine 0.79 MG/DL Estimat Glomerular Filtration 105 ML/MIN Rate Random Glucose 86 MG/DL Calcium Level 8.9 MG/DL Human Chorionic Gonadotropin, LESS THAN 1 Quant MIU/ML Imaging Last Impressions Upper Extremity Ultrasound 06/16/17 0000 Signed Impressions: Service Date/Time: May 14:38 - CONCLUSION: Marked soft tissue edema without drainable fluid collection or abscess. The hypodense collection seen on the CT scan is more complicated than it appears on the CT scan . The area could be aspirated but I don't believe there significant material for drainage catheter . Mack Mar MD Central Venous Line 06/16/17 0000 Signed Impressions: Service Date/Time: May 15:35 - CONCLUSION: Uncomplicated line placement as above. Randall Caldwell MD Chest X-Ray 06/15/17 1820 Signed Impressions: Service Date/Time: Thursday, June 15, 2017 18:32 - CONCLUSION: 1. Hyperinflation. Geoffrey Miller MD Upper Extremity CT 06/15/17 0000 Signed Impressions: Service Date/Time: Thursday, June 15, 2017 20:59 - CONCLUSION: 1. There is ulceration of the proximal forearm skin with subcutaneous edema and cellulitis suspected. 2. In addition there is an abscess identified within the distal arm deep subcutaneous tissue. Geoffrey Miller MD Physical Exam GENERAL: This is a well-nourished, well-developed patient, in no apparent distress. SKIN: Multiple track logan noted. HEAD: Atraumatic. Normocephalic. No temporal or scalp tenderness. EYES: Pupils equal round and reactive. Extraocular motions intact. No scleral icterus. No injection or drainage. ENT: Nose without bleeding, purulent drainage or septal hematoma. Throat without erythema, tonsillar hypertrophy or exudate. Uvula midline. Airway patent. NECK: Trachea midline. Supple, nontender, no meningeal signs. CARDIOVASCULAR: Regular rate and rhythm without murmurs, gallops, or rubs. RESPIRATORY: Clear to auscultation. Breath sounds equal bilaterally. No wheezes , rales, or rhonchi. GASTROINTESTINAL: Abdomen soft, non-tender, nondistended. MUSCULOSKELETAL: Bilateral inner aspect of forearms with induration, tenderness and mild warmth noted. NEUROLOGICAL: Awake and alert. Grossly nonfocal. Psych gets very agitated. IV line sites with no evidence of infection. Assessment & Plan Remarks Bilateral UE cellulitis present on admission Risk factor: IVDA Partially treated with bactrim. Strep not A, B, D on 06/09/2017 ED visit abscess culture from I&D. Vancomycin allergy: severe rash not Red man per patient. Not a candidate for Dalvance. Recs DC Zosyn IV Continue Zyvox for now d.w pt and RN taking care of patient Given her non compliance I would recommend Dalvance one time dose after approval. No other antibiotics needed on discharge if patient receives Dalvance in hospital as this takes care of 2 week course of antibiotics. Dalvance form completed and given to case management. Dose paper form faxed to Pharmacy. Expect dose to be infused in am once available in pharmacy. will sign off please call back if any change in clinical condition or questions or problems with dalvance order. Joaquina Rojo MD Jun 22, 2017 5:02 pm
[2017-06-22 21:12] VITALS: BP 162/72; PULSE 67; RESP 16; TEMP 97.5; O2SAT 97
[2017-06-22] MEDS: oxyCODONE/ACETAMINOPHEN 10 MG/325 MG TAB PO PRN (22:11)
[2017-06-23 00:56] VITALS: BP 115/56; PULSE 63; RESP 16; TEMP 98; O2SAT 94
[2017-06-23 04:55] VITALS: BP 124/60; PULSE 78; RESP 16; TEMP 98; O2SAT 96
[2017-06-23 08:00] VITALS: BP 124/58; PULSE 60; RESP 16; TEMP 98; O2SAT 98
--- NOTE | 2017-06-23 08:26 | HHI.FPPN ---
Subjective Remarks Patient seen and examined this morning. No acute events overnight. Patient was not able to receive Dalvance yesterday due to lack of availability. Patient denies chest pain, shortness of breath. She endorses a white plaque material in her mouth and is concerned that she has thrush. She also endorses a thick vaginal discharge from a yeast infection. Today is her birthday and she expresses the desire to go home as soon as possible. She has no other acute concerns. Objective Vitals Vital Signs Date Time Temp Pulse Resp B/P Pulse Ox O2 Delivery O2 Flow Rate FiO2 06/23/17 04:55 98.0 78 16 124/60 96 06/23/17 00:56 98.0 63 16 115/56 94 06/22/17 21:12 97.5 67 16 162/72 97 06/22/17 16:00 98.8 70 18 158/84 97 06/22/17 12:05 97.2 63 18 150/73 96 I/O 06/22/17 06/22/17 06/22/17 06/23/17 06/23/17 06/23/17 07:00 15:00 23:00 07:00 15:00 23:00 Intake Total 960 ml Balance 960 ml Intake Oral 960 ml # Voids 4 3 3 # Bowel Movements 1 1 0 Result Diagram: 06/22/17 0550 06/21/17 0620 Objective Remarks GENERAL: Well-nourished female sitting up in bed comfortably SKIN: No new skin abnormalities noted HEENT: Atraumatic. Normocephalic. Pupils equal and round. No scleral icterus. No injection or drainage. No nasal bleeding or discharge. Pt with oral candidiasis. NECK: Trachea midline. No JVD. CARDIOVASCULAR: Regular rate and rhythm. No murmurs on auscultation. RESPIRATORY: No accessory muscle use. Breath sounds equal bilaterally. GASTROINTESTINAL: Abdomen soft, non-tender, nondistended. MUSCULOSKELETAL: Distal forearms wrapped with gauze dressings. Dressings appear clean and dry. Wounds on distal upper extremities with stitches intact. No significant drainage. Left arm resistant to extension past 90 degrees due to pain. Tenderness to left distal medial upper arm. Density palpated under the skin approximately 2-3 cm in length and 1.5 cm in width. No fluctuance, edema, erythema. Normal ROM of the fingers. Extremities without clubbing, cyanosis, or edema. NEUROLOGICAL: Awake and alert. No obvious cranial nerve deficits. Motor grossly within normal limits. Grossly normal muscle strength. Normal speech. PSYCHIATRIC: Appropriate mood and affect; insight and judgment normal. Procedures 06/16/17 s/p I&D bilateral forearm abscesses Date of Insertion: Jun 16, 2017 Line: Central Venous Catheter Side: Right Location: Internal, Jugular A/P Assessment and Plan 26 yo AAF admitted with bilateral upper extremity cellulitis and abscess. Discharge Planning She has been cleared by orthopedic surgery and infectious disease. Anticipate discharge later today after Dalvance. Problem List: (1) Cellulitis Status: Acute Plan: Infectious disease consulted regarding antibiotic selection and duration as this will play a large role in discharge planning, appreciate recommendations. * Continue pain management with Percocet and morphine when necessary 2-D echo ordered for evaluation of endocarditis: Unremarkable study with EF 55 60 percent, no vegetations noted Ortho consulted: appreciate recommendation * general surgery and hand were consulted but reported that this case would best be served by ortho * I&D bilateral arms performed 06/16 (Dr. Boyd) * Patient cleared for discharge Antibiotic course: * Linezolid 06/15-06/22: Completed * Zosyn 06/15-06/22: Completed * Pt to receive one time dose of Dalvance, then cleared for discharge (2) Candidiasis Status: Acute Plan: Pt with oral thrush and vaginal candidiasis Thrush: treat with Magic mouthwash/nystatin Vaginal candidiasis: Diflucan 150mg po x2 (3) Decreased range of motion of upper extremity Status: Acute Plan: Difficulty extending elbow past 90 degrees since admission. Currently seen and evaluated by PT/OT * Continue PT/OT * K Thermia * Observe for improvement/change in morning (4) IVDU (intravenous drug user) Status: Chronic Plan: Hx of IV drug use with cocaine. Denies any other drug use that she could be withdrawing from. * Endocarditis workup negative (5) Nutrition, metabolism, and development symptoms Status: Acute Plan: Diet: Regular diet Fluids: PO Electrolytes: Monitor and replete as needed GI PPX: none indicated Access: Central line in the RIJ. to be removed at time of discharge. DVT PPX: Carlee Herring MD R2 Jun 23, 2017 08:26
[2017-06-23] MEDS: LACTOBACILLUS ACIDOPHILUS 1 GM PACKET PO SCH ×2 (09:16→14:00)
[2017-06-23] MEDS: oxyCODONE/ACETAMINOPHEN 10 MG/325 MG TAB PO PRN (09:17)
[2017-06-23] MEDS: LINEZOLID 600 MG PREMIX 300 ML IV SCH (09:18)
[2017-06-23] MEDS: DOCUSATE SODIUM 50 MG/SENNA 8.6 MG TAB PO SCH (09:18)
[2017-06-23] MEDS: ENOXAPARIN SODIUM 40 MG/0.4 ML SYRINGE SQ SCH (09:19)
[2017-06-23] MEDS: SODIUM CHLORIDE 0.9% FLUSH 10 ML FLUSH IV FLUSH SCH (09:20)
[2017-06-23] MEDS ORDERED: FLUCONAZOLE 100 MG TAB PO ONE ×2 (09:30→11:00)
[2017-06-23] MEDS ORDERED: DALBAVANCIN 1,500 MG/D5W 500 ML IV ONE ×4 (10:00→11:45)
[2017-06-23] MEDS ORDERED: MAGICADU2 SWISH-SWAL (10:54)
[2017-06-23] MEDS: NYSTAT/DIPHENHY/LIDO MOUTHWASH (Adult) 120ML SWISH-SWAL SCH ×2 (11:11→11:24)
[2017-06-23 12:00] VITALS: BP 154/71; PULSE 88; RESP 16; TEMP 98.1; O2SAT 99
[2017-06-23] MEDS ORDERED: NYSTATIN SUSP 500,000 U/5 ML CUP SWISH-SWAL SCH (13:00)
--- NOTE | 2017-06-23 16:09 | HHI.DS ---
Discharge Summary Admission Date Jun 15, 2017 at 22:10 Discharge Date: Jun 23, 2017 Admitting Diagnosis Deep Tissue Abscess, IVDA, Sepsis (1) Cellulitis Diagnosis: Principal Plan: Infectious disease consulted regarding antibiotic selection and duration as this will play a large role in discharge planning, appreciate recommendations. * Continue pain management with Percocet and morphine when necessary 2-D echo ordered for evaluation of endocarditis: Unremarkable study with EF 55 60 percent, no vegetations noted Ortho consulted: appreciate recommendation * general surgery and hand were consulted but reported that this case would best be served by ortho * I&D bilateral arms performed 06/16 (Dr. Boyd) * Patient cleared for discharge Antibiotic course: * Linezolid 06/15-06/22: Completed * Zosyn 06/15-06/22: Completed * Pt to receive one time dose of Dalvance, then cleared for discharge (2) Candidiasis Plan: Pt with oral thrush and vaginal candidiasis Thrush: treat with Magic mouthwash/nystatin Vaginal candidiasis: Diflucan 150mg po x2 (3) Decreased range of motion of upper extremity Plan: Difficulty extending elbow past 90 degrees since admission. Currently seen and evaluated by PT/OT * Continue PT/OT * K Thermia * Observe for improvement/change in morning (4) IVDU (intravenous drug user) Plan: Hx of IV drug use with cocaine. Denies any other drug use that she could be withdrawing from. * Endocarditis workup negative (5) Nutrition, metabolism, and development symptoms Plan: Diet: Regular diet Fluids: PO Electrolytes: Monitor and replete as needed GI PPX: none indicated Access: Central line in the RIJ. to be removed at time of discharge. DVT PPX: [facility] Infectious disease, orthopedic surgery Procedures 06/16/17 s/p I&D bilateral forearm abscesses Brief History Ms. Chin is a 26 yo AAF who is presenting in the ED with bilateral upper extremity skin infections. Pt states that 6 days ago she noticed a "knot" on the medial aspect of her L arm slightly distal to the elbow. She had a similar lesion on her R arm about 3 months ago that was still present. In both arms she began to experience pain, swelling and stiffness (worse on L than R). She attempted to miguel both lesions at home, but states only a small amount of pus was drained. 2 days ago she came to the ED and had both lesions I&D and packed. She was sent home on Bactrim. Since that time she reports worsening stiffness, swelling and pain in her L arm and now reports numbness on the lateral aspect of her forearm. She has been taking Tylenol 500 mg every 8-12 hours for pain and occasionally Aleve. She reports nausea, headache, and subjective fevers. Of note: pat CBC/BMP: 06/22/17 0550 06/21/17 0620 Significant Findings Laboratory Tests Test 06/21/17 06/22/17 06:20 05:50 Red Blood Count 3.36 MIL/MM3 3.57 MIL/MM3 (4.00-5.30) (4.00-5.30) Hemoglobin 10.5 GM/DL 10.9 GM/DL (11.6-15.3) (11.6-15.3) Hematocrit 30.1 % 32.4 % (35.0-46.0) (35.0-46.0) Anion Gap 4 MEQ/L (5-15) PE at Discharge GENERAL: Well-nourished female sitting up in bed comfortably SKIN: No new skin abnormalities noted HEENT: Atraumatic. Normocephalic. Pupils equal and round. No scleral icterus. No injection or drainage. No nasal bleeding or discharge. Pt with oral candidiasis. NECK: Trachea midline. No JVD. CARDIOVASCULAR: Regular rate and rhythm. No murmurs on auscultation. RESPIRATORY: No accessory muscle use. Breath sounds equal bilaterally. GASTROINTESTINAL: Abdomen soft, non-tender, nondistended. MUSCULOSKELETAL: Distal forearms wrapped with gauze dressings. Dressings appear clean and dry. Wounds on distal upper extremities with stitches intact. No significant drainage. Left arm resistant to extension past 90 degrees due to pain. Tenderness to left distal medial upper arm. Density palpated under the skin approximately 2-3 cm in length and 1.5 cm in width. No fluctuance, edema, erythema. Normal ROM of the fingers. Extremities without clubbing, cyanosis, or edema. NEUROLOGICAL: Awake and alert. No obvious cranial nerve deficits. Motor grossly within normal limits. Grossly normal muscle strength. Normal speech. PSYCHIATRIC: Appropriate mood and affect; insight and judgment normal. Hospital Course Patient is a 26-year-old female with history of IV drug use who was initially admitted due to bilateral upper extremity cellulitis found to have abscesses that required drainage. Orthopedic surgery was consulted and performed incision and drainage on 06/16. Patient reported an allergy to vancomycin and was started on IV linezolid and Zosyn. She had a difficult time fully extending her arms, especially her left arm. Patient was seen and evaluated by PT and OT. An echo was performed due to a concern for endocarditis and this was negative. Blood, wound cultures with no growth to date. Prior upper extremity wound cultures from previous ED visit positive for strep not A, B, D. Infectious disease was consulted regarding antibiotic selection and duration. Patient received a one-time dose of Dalvance on 06/23. Patient also reported a yeast infection and oral thrush that were treated with Diflucan and nystatin. She was discharged to follow up with PCP and orthopedic surgery. Pt Condition on Discharge: Stable Discharge Disposition: Discharge Home Discharge Instructions DIET: Follow Instructions for: As Tolerated, No Restrictions Activities you can perform: Regular-No Restrictions Follow up Referrals: Orthopedics - 2 Weeks @ [facility] with Rodo Boyd Jr., MD PCP Follow-up - 1 Week New Medications: Ibuprofen (Ibuprofen) 600 Mg Tab 600 MG PO Q6H PRN PAIN #30 Ref 0 TAB Zavzoccl-Lzzjbnoybxxidib-Ddcxaecyd Liq (Magic Mouthwash Adult Liq) 120 Ml Susp 5 ML SWISH-SWAL ACHS Each 5mL contains: Nystatin 200,000units, Diphenhydramine 4.25mg, Viscous Lidocaine 10mg, Mosley syrup 0.8 mL Mouth sores #120 Ref 0 ML Tramadol (Tramadol) 50 Mg Tab 50 MG PO Q4H PRN PAIN #90 Ref 0 TAB Carlee Griffin MD R2 Jun 23, 2017 16:09
== END 2017-06-23 18:55 | disposition home or self-care (01) | DRG 580 ==
LOC: NEPE 16:52 → NEDA 22:10 → N05A 23:07
PROVIDERS: ADMIT Family Medicine; ATTEND Family Medicine
PROC: 0J9H0ZZ Drainage of Left Lower Arm Subcutaneous Tissue and Fascia, Open Approach (ICD-10-PCS; 2017-06-16)
PROC: 05HM33Z Insertion of Infusion Device into Right Internal Jugular Vein, Percutaneous Approach (ICD-10-PCS; 2017-06-16)
PROC: 0J9G0ZZ Drainage of Right Lower Arm Subcutaneous Tissue and Fascia, Open Approach (ICD-10-PCS; principal; 2017-06-16 19:49)
DX: L02.414 Cutaneous abscess of left upper limb (principal); B37.0 Candidal stomatitis; E87.6 Hypokalemia; F17.210 Nicotine dependence, cigarettes, uncomplicated; B37.3 Candidiasis of vulva and vagina; F41.9 Anxiety disorder, unspecified; F19.10 Other psychoactive substance abuse, uncomplicated; L03.113 Cellulitis of right upper limb; L03.114 Cellulitis of left upper limb; L02.413 Cutaneous abscess of right upper limb; R19.7 Diarrhea, unspecified; Z59.0 Homelessness; Z88.1 Allergy status to other antibiotic agents; Z91.19 Patient's noncompliance with other medical treatment and regimen
CPT/HCPCS: 36556; 71010; 73201; 76882; 76937; 77001; 80048; 80053; 81001; 82550; 83605; 84702; 85025; 85027; 85652; 86703; 87015; 87040; 87070; 87086; 87102; 87116; 87205; 87206; 93306; 94150; 96361; 96365; 96372; 96375; J0690; J0875; J1170; J1580; J1650; J1885; J2020; J2250; J2270; J2405; J2543; J3480; J7030; J7060; J7120; Q9967

== ENCOUNTER 2017-08-28 15:35 | Emergency (ER) | payer SELFPAY ==
[~2017-08-28 15:35] MED LIST changes: -DICY1TAB26 PO; +IBUP-232 PO; +MAGICADU2 SWISH-SWAL; +MAPA500T PO; -RANI150 PO; +TRAM50TA PO; -ZOFR4TAB3 SL
[2017-08-28 15:37] VITALS: BP 124/67; PULSE 96; RESP 15; TEMP 98.2; O2SAT 99
[2017-08-28 16:23] LABS: BLOOD, URINE NEG (NEG); GLUCOSE,URINE NEG (NEG); KETONE, URINE NEG (NEG); NITRITE,URINE NEG (NEG); SQUAMOUS EPITHELIAL CELL URINE 1 /hpf (0-5); URINE COLOR YELLOW (YELLW/STRAW)
[2017-08-28 16:31] LABS: COMMENT (UR) CULT NOT INDICATED; CULTURE IF INDICATED CULT NOT INDICATED
[2017-08-28 18:12] VITALS: BP 131/78; PULSE 82; RESP 16; O2SAT 100
[2017-08-28] MEDS ORDERED: SODIUM CHLORIDE 0.9% FLUSH 10 ML FLUSH IV FLUSH PRN (18:15)
[2017-08-28 19:14] LABS: AUTOMATED NEUTROPHIL # 3.8 TH/MM3 (1.8-7.7); BASOPHIL % 0.5 % (0.0-2.0); EOSINOPHIL # 0.1 TH/MM3 (0-0.4); EOSINOPHIL % 0.9 % (0.0-4.0); HEMATOCRIT 37.6 % (35.0-46.0); HEMO FLAGS DIFF FINAL; LYMPH % 35.8 % (9.0-44.0); LYMPHOCYTE # 2.7 TH/MM3 (1.0-4.8); MEAN CELL VOLUME 91.9 FL (80.0-100.0); MEAN CORPUSCULAR HEMOGLOBIN 30.5 PG (27.0-34.0); MEAN CORPUSCULAR HGB CONC 33.2 % (32.0-36.0); MONO % 11.4 % (0.0-8.0); NEUT % 51.4 % (16.0-70.0); PLATELET COUNT 210 TH/MM3 (150-450); RED BLOOD COUNT 4.09 MIL/MM3 (4.00-5.30); RED CELL DISTRIBUTION WIDTH 14.6 % (11.6-17.2); WHITE BLOOD COUNT 7.4 TH/MM3 (4.0-11.0)
--- NOTE | 2017-08-28 19:31 | PD ---
HPI Chief Complaint: GI Complaint Time Seen by Provider: 18:25 Travel History International Travel<30 days: No Contact w/Intl Traveler<30days: No Traveled to known affect area: No History of Present Illness HPI Patient is a 27-year-old female IV drug user who presents to emergency department at approximately 9 weeks gestational age with a complaint of abdominal pain. 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 She denies any vaginal bleeding or vaginal discharge. She states she 's not yet had an ultrasound yet this . States the pain is cramping generalized so she was mild nausea but no diarrhea no vomiting. Denies any fevers. States symptoms are moderate, cramping, waxing and waning. PFSH Past Medical History Hx Anticoagulant Therapy: No Atrial Fibrillation: No Blood Disorders: No Anxiety: Yes Heart Rhythm Problems: Yes (HEART MURMUR) Cancer: No Cardiovascular Problems: Yes (MURMUR) High Cholesterol: No Chemotherapy: No Chest Pain: No Congestive Heart Failure: No Cerebrovascular Accident: No Diabetes: No Diminished Hearing: No Endocrine: No Gastrointestinal Disorders: Yes (gastritis) Genitourinary: No Hypertension: No Immune Disorder: No Implanted Vascular Access Dvce: No Musculoskeletal: Yes (INJURY RT. HAND) Neurologic: No Psychiatric: No Reproductive: No Respiratory: No Influenza Vaccination: No ?: LMP: 06/28/2017 : 6 Para: 4 Miscarriage: 1 : 1 Past Surgical History Section: Yes Hysterectomy: No Other Surgery: Yes (SURGERY TO RIGHT RING FINGER FOR MRSA / BILATERAL ARMS FOR ABSCESSES) Social History Alcohol Use: Yes (OCCASIONAL PRE-) Tobacco Use: Yes (occ smoker PRE-) Substance Use: Yes (IV DRUG ABUSE) Allergies-Medications (Allergen,Severity, Reaction): Coded Allergies: vancomycin (Verified Allergy, Unknown, RASH, 08/28/17) Reported Meds & Prescriptions Reported Meds & Active Scripts Active Vitamin 27-0.8 mg ( Vit W/ Ferrous Fumara) 27 Mg Iron-800 Mcg Tab 1 Tab PO DAILY 30 Days Review of Systems Except as stated in HPI: all other systems reviewed are Neg Physical Exam Narrative GENERAL: Well-developed well-nourished, thin but in no obvious distress. SKIN: Focused skin assessment warm/dry. HEAD: Atraumatic. Normocephalic. EYES: Pupils equal and round. No scleral icterus. No injection or drainage. ENT: No nasal bleeding or discharge. Mucous membranes pink and moist. NECK: Trachea midline. No JVD. CARDIOVASCULAR: Regular rate and rhythm. No murmur appreciated. RESPIRATORY: No accessory muscle use. Clear to auscultation. Breath sounds equal bilaterally. GASTROINTESTINAL: Abdomen soft, non-tender, gravid. Hepatic and splenic margins not palpable. No rebound no percussive tenderness. MUSCULOSKELETAL: No obvious deformities. No clubbing. No cyanosis. No edema. NEUROLOGICAL: Awake and alert. No obvious cranial nerve deficits. Motor grossly within normal limits. Normal speech. PSYCHIATRIC: Appropriate mood and affect; insight and judgment normal. Data Data Last Documented VS Vital Signs Date Time Temp Pulse Resp B/P (MAP) Pulse Ox O2 Delivery O2 Flow Rate FiO2 08/28/17 20:49 86 20 115/81 (92) 100 08/28/17 18:12 Room Air 08/28/17 15:37 98.2 Orders Orders Ed Urine Pregnancytest Poc (08/28/17 15:59) Urinalysis - C+S If Indicated (08/28/17 16:00) Basic Metabolic Panel (Bmp) (08/28/17 18:13) Beta Hcg (Quant/Titer) (08/28/17 18:13) Complete Blood Count With Diff (08/28/17 18:13) Iv Access Insert/Monitor (08/28/17 18:13) Ecg Monitoring (08/28/17 18:13) Oximetry (08/28/17 18:13) Sodium Chloride 0.9% Flush (Ns Flush) (08/28/17 18:15) Abo/Rh Blood Type (08/28/17 18:13) Us Pelvis (Ques Preg/Ectopic) (08/28/17 18:25) Acetaminophen (Tylenol) (08/28/17 21:00) Labs Laboratory Tests Test 08/28/17 16:08 08/28/17 18:58 Urine Color YELLOW Urine Turbidity CLEAR Urine pH 6.0 Urine Specific [place] 1.016 Urine Protein NEG mg/dL Urine Glucose (UA) NEG mg/dL Urine Ketones NEG mg/dL Urine Occult Blood NEG Urine Nitrite NEG Urine Bilirubin NEG Urine Urobilinogen LESS THAN 2.0 MG/DL Urine Leukocyte Esterase TRACE Urine RBC 1 /hpf Urine WBC 4 /hpf Urine Squamous Epithelial Cells 1 /hpf Microscopic Urinalysis Comment CULT NOT INDICATED White Blood Count 7.4 TH/MM3 Red Blood Count 4.09 MIL/MM3 Hemoglobin 12.5 GM/DL Hematocrit 37.6 % Mean Corpuscular Volume 91.9 FL Mean Corpuscular Hemoglobin 30.5 PG Mean Corpuscular Hemoglobin Concent 33.2 % Red Cell Distribution Width 14.6 % Platelet Count 210 TH/MM3 Mean Platelet Volume 9.5 FL Neutrophils (%) (Auto) 51.4 % Lymphocytes (%) (Auto) 35.8 % Monocytes (%) (Auto) 11.4 % Eosinophils (%) (Auto) 0.9 % Basophils (%) (Auto) 0.5 % Neutrophils # (Auto) 3.8 TH/MM3 Lymphocytes # (Auto) 2.7 TH/MM3 Monocytes # (Auto) 0.8 TH/MM3 Eosinophils # (Auto) 0.1 TH/MM3 Basophils # (Auto) 0.0 TH/MM3 CBC Comment DIFF FINAL Differential Comment Blood Urea Nitrogen 9 MG/DL Creatinine 0.57 MG/DL Random Glucose 77 MG/DL Calcium Level 8.7 MG/DL Sodium Level 138 MEQ/L Potassium Level 4.0 MEQ/L Chloride Level 107 MEQ/L Carbon Dioxide Level 24.8 MEQ/L Anion Gap 6 MEQ/L Estimat Glomerular Filtration Rate 152 ML/MIN Human Chorionic Gonadotropin, Quant 737010 MIU/ML [facility] Medical Decision Making Medical Screen Exam Complete: Yes Emergency Medical Condition: Yes Differential Diagnosis Abdominal pain and , round ligament pain, acute abdomen highly unlikely , appendicitis unlikely, Narrative Course Patient roomed emergency department, her labs include CBC BMP are reassuring. Ultrasound shows a single intrauterine . On my reassessment patient sleeping soundly and in no distress. I had suggested that she could have some Tylenol in our initial encounter and she requests that now. At this point the patient is reassured I do not think there is any indication for further workup in the emergency department. She was urged to follow-up with [employer] act or Narcotics Anonymous as well as an PASTE UP WORKER to establish early. vitamins were discussed, she states that she has not used any substances since her last admission to the hospital some months ago, at that time she was found to be septic from an abscess in her upper extremity. She appears to be well and nontoxic at this point. She stable for discharge. Diagnosis Primary Impression: Abdominal pain affecting Referrals: Patient Assistance Program Med/Other Pt SpecificInfo: Prescription(s) given Scripts Vit W/ Ferrous Fumara ( Vitamin 27-0.8 mg) 27 Mg Iron-800 Mcg Tab 1 TAB PO DAILY for 30 Days, 9 Refills Prov: Luc Espinoza MD 08/28/17 Disposition: 01 DISCHARGE HOME Condition: Stable Luc Espinoza MD Aug 28, 2017 19:31
[2017-08-28 19:37] LABS: BICARBONATE 24.8 MEQ/L (21.0-32.0)
--- NOTE | 2017-08-28 20:36 | RADRPT ---
EXAM DATE/TIME: 08/28/2017 18:54 [facility] COMPARISON: No previous studies available for comparison. INDICATIONS : Pain. LAB(S): Beta-hC MEDICAL HISTORY : IV drug use. Heart murmer. Gastritis. SURGICAL HISTORY : section. ENCOUNTER: Initial ACUITY: 1 day PAIN SCORE: 5/10 LOCATION: Bilateral pelvis MEASUREMENTS: UTERUS: 10.1 x 8.0 x 6.3 cm RIGHT OVARY: 2.9 x 2.1 x 1.6 cm LEFT OVARY: 2.6 x 2.2 x 1.3 cm FREE FLUID: No FINDINGS: A gestational sac yolk sac and pole is identified. Gestational sac size is 4.1 cm, characteris tic of 9-10 week gestation and is congruent with crown-rump length of 2.4 cm (19 weeks, one day).. F etal heart rate of 164 beats per minute is documented by Doppler. There is a hypocholic area adjacen t to the gestational sac which could possibly represent a subchorionic bleed. There is an oval hypoechoic area within the right ovary measuring 12 x 14 mm, possibly representing c orpus luteum. The left ovary is intact. No evidence of free fluid. CONCLUSION: Viable intrauterine dated between 9 and 10 weeks. Ihsan Seth MD on August 28, 2017 at 20:32 Board Certified Radiologist. This report was verified electronically.
[2017-08-28] MEDS ORDERED: PREN1TAB30 P-ARTICULR (20:42)
[2017-08-28] MEDS ORDERED: PREN1TAB30 PO (20:47)
[2017-08-28 20:49] VITALS: BP 115/81
[2017-08-28] MEDS ORDERED: ACETAMINOPHEN 500 MG CPLT PO ONE (21:00)
== END 2017-08-28 21:08 | disposition home or self-care (01) ==
LOC: NEPD 15:35
DX: O26.891 Other specified pregnancy related conditions, first trimester (principal); R10.9 Unspecified abdominal pain; Z3A.09 9 weeks gestation of pregnancy
CPT/HCPCS: 76700; 80048; 81001; 84702; 84703; 85025; 99284

== ENCOUNTER 2017-09-22 12:33 | Emergency (ER) | payer MEDICAID ==
[~2017-09-22] VITALS: Ht 152.4 cm; Wt 54.0 kg
[~2017-09-22 12:33] MED LIST changes: -BACT800T5 PO; -IBUP-232 PO; -MAGICADU2 SWISH-SWAL; -MAPA500T PO; +PREN1TAB30 PO; -TRAM50TA PO
[2017-09-22 12:35] VITALS: BP 124/82; PULSE 97; RESP 16; TEMP 98.5; O2SAT 99
--- NOTE | 2017-09-22 13:09 | PD ---
HPI Chief Complaint: Related Problem Time Seen by Provider: 12:48 Travel History International Travel<30 days: No Contact w/Intl Traveler<30days: No Traveled to known affect area: No History of Present Illness HPI 27-year-old female, approximately 13 weeks , presents to the emergency department with complaint of abdominal cramping that started last night and has been intermittent. Her last episode was approximately 10 AM this morning. Denies abdominal cramping at this time. Denies vaginal leakage, vaginal discharge, vaginal bleeding. Denies nausea, vomiting, diarrhea, dysuria. Says she noticed some mucus in her stool this morning. Denies hematochezia. Denies fevers. Has taken Tylenol for symptom management. Describes the abdominal pain as a tightening. Symptoms are moderate in severity. This is her seventh , with 4 living children, and 2 elective abortions. She has an appointment with her engagement specialist, Dr. Jade, tomorrow at noon. Reports history of IV drug use, but denies current. Reports use of marijuana and flacca prior to . Denies EtOH. Has no other medical complaints. Allergies to vancomycin. No other modifying factors or associated signs and symptoms. PFSH Past Medical History Hx Anticoagulant Therapy: No Atrial Fibrillation: No Blood Disorders: No Anxiety: Yes Heart Rhythm Problems: Yes (HEART MURMUR) Cancer: No Cardiovascular Problems: Yes (MURMUR) High Cholesterol: No Chemotherapy: No Chest Pain: No Congestive Heart Failure: No Cerebrovascular Accident: No Diabetes: No Diminished Hearing: No Endocrine: No Gastrointestinal Disorders: Yes (gastritis) Genitourinary: No Hypertension: No Immune Disorder: No Implanted Vascular Access Dvce: No Musculoskeletal: Yes (INJURY RT. HAND) Neurologic: No Psychiatric: No Reproductive: No Respiratory: No ?: : 6 Para: 4 Miscarriage: 1 : 1 Past Surgical History Section: Yes Hysterectomy: No Other Surgery: Yes (SURGERY TO RIGHT RING FINGER FOR MRSA / BILATERAL ARMS FOR ABSCESSES) Social History Alcohol Use: Yes (OCCASIONAL PRE-) Tobacco Use: Yes (occ smoker PRE-) Substance Use: Yes (IV DRUG ABUSE) Allergies-Medications (Allergen,Severity, Reaction): Coded Allergies: vancomycin (Verified Allergy, Unknown, RASH, 09/22/17) Reported Meds & Prescriptions Reported Meds & Active Scripts Active Vitamin 27-0.8 mg ( Vit W/ Ferrous Fumara) 27 Mg Iron-800 Mcg Tab 1 Tab PO DAILY 30 Days Review of Systems Except as stated in HPI: all other systems reviewed are Neg Physical Exam Narrative GENERAL: Well-nourished, well-developed patient, in no acute distress; afebrile , nontoxic-appearing; laying in bed comfortably SKIN: Warm and dry. HEAD: Atraumatic. Normocephalic. EYES: Pupils equal and round at 5 mm with brisk reaction. No scleral icterus. No injection or drainage. ENT: Mucosa pink and moist. Airway patent. NECK: Trachea midline. CARDIOVASCULAR: Regular rate and rhythm. No murmur appreciated. RESPIRATORY: No accessory muscle use. Clear to auscultation. Breath sounds equal bilaterally. GASTROINTESTINAL: . Abdomen soft, non-tender, nondistended. Hepatic and splenic margins not palpable. Bowel sounds are active 4 quadrants. BACK: Patient reports CVA tenderness bilaterally. MUSCULOSKELETAL: No obvious deformities. No clubbing. No cyanosis. No edema. NEUROLOGICAL: Awake and alert. Oriented 3. No obvious cranial nerve deficits. Motor grossly within normal limits. Normal speech. PSYCHIATRIC: Appropriate mood and affect; insight and judgment normal. Data Data Last Documented VS Vital Signs Date Time Temp Pulse Resp B/P (MAP) Pulse Ox O2 Delivery O2 Flow Rate FiO2 09/22/17 12:43 96 18 09/22/17 12:35 98.5 124/82 (96) 99 Orders Orders Urinalysis - C+S If Indicated (09/22/17 13:03) Heart Tones (09/22/17 13:03) Gc And Chlamydia Pcr (09/22/17 13:07) Acetaminophen (Tylenol) (09/22/17 13:15) Labs Laboratory Tests Test 09/22/17 13:35 Urine Color LIGHT-YELLOW Urine Turbidity CLEAR Urine pH 5.5 Urine Specific [place] 1.012 Urine Protein NEG mg/dL Urine Glucose (UA) NEG mg/dL Urine Ketones NEG mg/dL Urine Occult Blood NEG Urine Nitrite NEG Urine Bilirubin NEG Urine Urobilinogen LESS THAN 2.0 MG/DL Urine Leukocyte Esterase NEG Urine RBC LESS THAN 1 /hpf Urine WBC 2 /hpf Urine Squamous Epithelial Cells <1 /hpf Urine Mucus FEW /lpf Microscopic Urinalysis Comment CULT NOT INDICATED MDM Medical Decision Making Medical Screen Exam Complete: Yes Emergency Medical Condition: Yes Medical Record Reviewed: Yes Differential Diagnosis Abdominal cramping and , second trimester , Narrative Course This is a 27-year-old female, approximately 13 weeks , with complaint of onset of abdominal cramping that started last night and has been intermittent. She last had abdominal cramping at 10 AM this morning. She denies vaginal discharge, leaking, bleeding. Denies nausea, vomiting, diarrhea , dysuria. She was seen on August 28 and ultrasound verified a viable intrauterine at 9-10 weeks, her beta hCG was [id number], urinalysis was negative, and blood type O+. Patient has a follow-up appointment with Dr. Jade, engagement specialist, tomorrow at noon. I discussed the patient with Dr. Cornelius, my attending physician, and he agrees with my plan of care. heart tones, urinalysis, urine chlamydia and gonorrhea, Tylenol ordered. 1324: heart tones 148bpm. 1439: Urinalysis without signs of infection. Instructed patient to follow up with Dr. Lucio tomorrow at her scheduled appointment. Instructed patient to take Tylenol as directed and as needed for pain. Discussed reasons to return to the emergency department. Instructed patient to follow up with primary care provider. Patient verbalizes understanding and agreement with treatment plan. Patient is medically cleared and stable for discharge. Discussed reasons to return to the emergency department. Patient agrees with treatment plan. The patients vital signs are stable and the patient is stable for outpatient follow-up and treatment. Patient discharged home, stable and in no acute distress. Diagnosis Primary Impression: Qualified Codes: Z3A.13 - 13 weeks gestation of Additional Impression: Abdominal cramping Referrals: Rosi Jade MD Primary Care Physician Patient Instructions: Abdominal Pain in (ED), General Instructions Additional Instructions: Tylenol as needed and as directed for pain Drink plenty of fluids Follow-up with Dr. Jade tomorrow at your scheduled appointment Return to the emergency department immediately if worsening of symptoms Med/Other Pt SpecificInfo: No Meds Exist/No RX given Disposition: 01 DISCHARGE HOME Condition: Stable Josiane Aburto Sep 22, 2017 13:09
[2017-09-22] MEDS ORDERED: ACETAMINOPHEN 325 MG TAB PO ONE ×2 (13:15)
[2017-09-22 14:02] LABS: BILIRUBIN, URINE NEG (NEG); BLOOD, URINE NEG (NEG); GLUCOSE,URINE NEG (NEG); KETONE, URINE NEG (NEG); MUCUS URINE FEW /lpf (OCC); NITRITE,URINE NEG (NEG); PH, URINE 5.5 (5.0-8.5); SQUAMOUS EPITHELIAL CELL URINE <1 /hpf (0-5); URINE COLOR LIGHT-YELLOW (YELLW/STRAW); URINE LEUKOCYTE ESTERASE NEG (NEG)
== END 2017-09-22 15:15 | disposition home or self-care (01) ==
LOC: NEPD 12:33
DX: O26.891 Other specified pregnancy related conditions, first trimester (principal); R10.9 Unspecified abdominal pain; Z3A.13 13 weeks gestation of pregnancy
CPT/HCPCS: 81001; 87491; 87591; 99283

== ENCOUNTER 2017-11-28 08:19 | Emergency (ER) | payer MEDICAID ==
--- NOTE | 2017-11-28 09:11 | PD ---
HPI Chief Complaint Vaginal bleeding minimal after intercourse Date Seen: Nov 28, 2017 Time Seen: 09:00 Travel History International Travel<30 Days: No Contact w/Intl Traveler<30Days: No Known Affected Area: No History of Present Illness HPI Patient is 27-year-old black female a 2 at 22 weeks who goes to the [facility] and presents here for some spotting after intercourse last night. She noticed a very small amount of blood in the toilet bowl and wanted to come in. She has no pain no leakage of fluid, heart tones are 150s. No contractions seen. The patient is finishing a course of antibiotics for Trichomonas infection and she states her partner was treated as well Weeks Gestation: 22 Para: 4 : 7 Last Menstrual Period: Nov 28, 2017 Miscarriage: 2 History Past Medical History Narrative Medical Recently diagnosed with the bipolar disorder with manic-depressive tendencies Obstetric History Obstetric History 4 vaginal deliveries and 2 early losses Social History Narrative Social History The patient has a history of using IV.GRICELDA Alcohol Use: No Tobacco Use: No Substance Abuse: Yes Allergies-Medications (Allergen,Severity, Reaction): Coded Allergies: vancomycin (Verified Allergy, Unknown, RASH, 09/22/17) Home Meds Active Scripts Vit W/ Ferrous Fumara ( Vitamin 27-0.8 mg) 27 Mg Iron-800 Mcg Tab, 1 TAB PO DAILY for 30 Days, 9 Refills Prov:Luc Espinoza MD 08/28/17 Review of Systems General / Constitutional: No: Fever, Weight Gain, Chills, Other Eyes: No: Diploplia, Blurred Vision, Visual changes, Pain, Photophobia HENT: No: Headaches, Vertigo, Lightheadedness Cardiovascular: No: Irregular Rhythm, Chest Pain or Discomfort, Palpitations, Tachycardia, Syncope, Varicosities, Edema, Cyanosis Respiratory: No: Cough, Short of Breath, Other Gastrointestinal: No: Nausea, Vomiting, Diarrhea Genitourinary: Vaginal Bleeding, No: Decreased Urinary Output, Oliguria Musculoskeletal: No: Limited ROM, Weakness, Cramping, Edema, Pain Skin: No Rash, No Itching, No Dryness, No Lumps, No Change in Pigmentation, No Change in Nails, No Alopecia, No Lesions Neurologic: No: Weakness, Dizziness, Syncope, Focal Abnormalities, Coordination Problem, Headache, Slurred Speech, Seizures Psychiatric: No: Depression, Suicidal Ideations, Homicidal Ideation Endocrine: No: Heat Intolerance, Cold Intolerance, Polydipsia, Polyuria, Other Physical Exam Narrative GENERAL: Well-nourished, well-developed patient. SKIN: Warm and dry. HEAD: Normocephalic and atraumatic. EYES: No scleral icterus. No injection or drainage. ENT: No nasal drainage noted. Mucous membranes pink. Airway patent. NECK: Supple, trachea midline. No JVD. CARDIOVASCULAR: Regular rate and rhythm without murmurs, gallops, or rubs. RESPIRATORY: Breath sounds equal bilaterally. No accessory muscle use. BREASTS: Bilateral exam showed no masses , no retractions, no nipple discharge. ABDOMEN/GI: Abdomen soft, non-tender, bowel sounds present, no rebound, no guarding Gravid to [22-] weeks size Fundal Height: [at umb-] GENITOURINARY: External Genitalia: intact and normal in appearance Speculum exam done no blood seen no discharge no overt infection appearance Cervix: [Closed-] Dilatation: [-Closed] Effacement: [-] Thick Station: [-3] Membranes: [intact ] Uterine Contractions: [none-] FHT's: 150s EXTREMITIES: No cyanosis or edema. BACK: Nontender without obvious deformity. No CVA tenderness. NEUROLOGICAL: Awake and alert. Motor and sensory grossly within normal limits. Five out of 5 muscle strength in all muscle groups. Normal speech. MDM Interpretation(s) Patient is 27-year-old black female A2 at 22 weeks who complains of postcoital spotting. She is finishing treatment for Trichomonas infection at this time. And the bleeding she noticed was very minimal just a few drops in the toilet. There is quite likely that the combination of Trichomonas infection with a friable cervix to begin with was predisposed to postcoital bleeding/spotting Plan Plan is to the patient to finish her course of antibiotics no intercourse for the next 48--72 hours if no bleeding noted then may resume normal activities Diagnosis Diagnosis: Primary Impression: Postcoital bleeding Additional Impression: 22 weeks gestation of Disposition: 01 DISCHARGE HOME Condition: Stable Shaun Garcia II, MD Nov 28, 2017 09:11
== END 2017-11-28 09:33 | disposition home or self-care (01) ==
LOC: HOBED 08:19
DX: O26.852 Spotting complicating pregnancy, second trimester (principal); O99.342 Other mental disorders complicating pregnancy, second trimester; F31.9 Bipolar disorder, unspecified; Z3A.22 22 weeks gestation of pregnancy
CPT/HCPCS: 99284

== ENCOUNTER → 2017-12-21 | Outpatient (CLI) | payer MEDICAID | LOC: HPND 09:54 | PROVIDERS: ATTEND Obstetrics & Gynecology | DX: O35.1XX0 Maternal care for (suspected) chromosomal abnormality in fetus, not applicable or unspecified (principal) | CPT/HCPCS: 76811 ==

== ENCOUNTER → 2018-01-25 | Outpatient (CLI) | payer MEDICAID | LOC: HPND 11:50 | PROVIDERS: ATTEND Obstetrics & Gynecology | DX: O35.8XX0 Maternal care for other (suspected) fetal abnormality and damage, not applicable or unspecified (principal) | CPT/HCPCS: 76816; 76819; 76820; 76821 ==

== ENCOUNTER 2018-05-22 23:06 | Emergency (ER) | payer MEDICAID ==
[~2018-05-22] VITALS: Ht 157.5 cm; Wt 69.0 kg
[2018-05-22 23:57] VITALS: BP 146/67; PULSE 84; RESP 16; TEMP 100.2; O2SAT 100
[2018-05-23 02:52] LABS: AUTOMATED NEUTROPHIL # 6.9 TH/MM3 (1.8-7.7); BASOPHIL % 0.3 % (0.0-2.0); EOSINOPHIL % 0.2 % (0.0-4.0); HEMATOCRIT 40.8 % (35.0-46.0); HEMOGLOBIN 13.4 GM/DL (11.6-15.3); LYMPH % 14.6 % (9.0-44.0); LYMPHOCYTE # 1.3 TH/MM3 (1.0-4.8); MEAN CELL VOLUME 90.3 FL (80.0-100.0); MEAN CORPUSCULAR HEMOGLOBIN 29.6 PG (27.0-34.0); MEAN CORPUSCULAR HGB CONC 32.8 % (32.0-36.0); MEAN PLATELET VOLUME 9.9 FL (7.0-11.0); MONO % 7.2 % (0.0-8.0); MONOCYTE # 0.6 TH/MM3 (0-0.9); NEUT % 77.7 % (16.0-70.0); PLATELET COUNT 247 TH/MM3 (150-450); RED BLOOD COUNT 4.51 MIL/MM3 (4.00-5.30); RED CELL DISTRIBUTION WIDTH 13.3 % (11.6-17.2); WHITE BLOOD COUNT 8.9 TH/MM3 (4.0-11.0)
[2018-05-23 03:06] LABS: ALKALINE PHOSPHATASE 76 U/L (45-117); TOTAL BILIRUBIN ADULT 0.3 MG/DL (0.2-1.0); TOTAL PROTEIN 8.2 GM/DL (6.4-8.2)
[2018-05-23 03:08] LABS: ALBUMIN 4.1 GM/DL (3.4-5.0); ALT (GPT) 24 U/L (10-53); AST (GOT) 44 U/L (15-37); BICARBONATE 26.1 MEQ/L (21.0-32.0); BLOOD UREA NITROGEN 20 MG/DL (7-18); CALCIUM 8.6 MG/DL (8.5-10.1); CHLORIDE 105 MEQ/L (98-107); GLOMERULAR FILTRATION RATE 79 ML/MIN (>89); GLUCOSE,RANDOM 82 MG/DL (74-106); SODIUM (NA) 137 MEQ/L (136-145)
[2018-05-23] MEDS ORDERED: KETOROLAC TROMETHAMINE 30 MG/ML (IVP) VIAL IV PUSH ONE (03:30)
[2018-05-23] MEDS ORDERED: ceFAZolin 2 GM PREMIX 50 ML IV ONE (03:30)
[2018-05-23] MEDS ORDERED: SODIUM CHLOR 0.9% 1000 ML INJ 1,000 ML IV ONE (03:30)
[2018-05-23] MEDS ORDERED: MUPI2%T TOPICAL (03:43)
[2018-05-23] MEDS ORDERED: CLIN300C5 PO (03:43)
[2018-05-23] MEDS ORDERED: NAPR-810 PO (03:43)
--- NOTE | 2018-05-23 03:44 | PD ---
HPI Chief Complaint: Pain: Acute or Chronic Time Seen by Provider: 03:16 Travel History International Travel<30 days: No Contact w/Intl Traveler<30days: No Traveled to known affect area: No History of Present Illness HPI The patient is a 27 year old female who presents to the [facility] emergency department with a history of a painful left breast that began earlier this evening with a staying sensation along the medial aspect while at work at approximately 9 PM tonight. The patient reports that she last breast-fed 3-4 days ago. She reports that she has had difficulty breast-feeding her 2-month- old since he was born. She reports that she has developed cracked painful nipples. She reports that she seen the telecommunications consultant for times without improvement. She reports that she has tried pumping, however this does not seem to help. She reports that she has decided to stop breast-feeding. She reports that this evening after the stinging began in the medial aspect of the left breast she developed swelling along the medial aspect. She reports that she has had chills. She denies having any known fevers prior to this. She denies having any nausea, vomiting, or diarrhea. She reports that her bleeding has stopped. She denies having a menstrual cycle since the delivery. On review of systems otherwise she denies having any cough or congestion, neck pain, chest pain, shortness of breath, abdominal pain,urinary symptoms, or neurologic symptoms. FOR[facility]LY [facility] Past Medical History Narrative Medical The patient's past medical history is significant for a prior history of IV drug use, reportedly quit using one year ago, history of anxiety disorder, history of a heart murmur, history of gastritis, history of multiple skin abscesses. Hx Anticoagulant Therapy: No Atrial Fibrillation: No Blood Disorders: No Anxiety: Yes Heart Rhythm Problems: Yes (HEART MURMUR) Cancer: No Cardiovascular Problems: Yes (MURMUR) High Cholesterol: No Chemotherapy: No Chest Pain: No Congestive Heart Failure: No Cerebrovascular Accident: No Diabetes: No Diminished Hearing: No Endocrine: No Gastrointestinal Disorders: Yes (gastritis) Genitourinary: No Hypertension: No Immune Disorder: No Implanted Vascular Access Dvce: No Musculoskeletal: Yes (INJURY RT. HAND) Neurologic: No Psychiatric: No Reproductive: No Respiratory: No Immunizations Current: Yes Tetanus Vaccination: < 5 Years Influenza Vaccination: No ?: Unknown : 6 Para: 4 Miscarriage: 1 : 1 Past Surgical History Narrative Surgical The patient's past surgical history is significant for hand surgery related to an infection, bilateral incision and drainage of abscesses of the arms, C- section. Section: Yes Hysterectomy: No Other Surgery: Yes (SURGERY TO RIGHT RING FINGER FOR MRSA / BILATERAL ARMS FOR ABSCESSES) Social History Alcohol Use: No Tobacco Use: No Substance Use: No (IV drug use last one year ago) Allergies-Medications (Allergen,Severity, Reaction): Coded Allergies: vancomycin (Verified Allergy, Unknown, RASH, 05/22/18) Reported Meds & Prescriptions Reported Meds & Active Scripts Active Vitamin 27-0.8 mg ( Vit W/ Ferrous Fumara) 27 Mg Iron-800 Mcg Tab 1 Tab PO DAILY 30 Days Review of Systems Except as stated in HPI: all other systems reviewed are Neg General / Constitutional: Positive: Chills, No: Fever Eyes: No: Visual changes HENT: No: Headaches, Neck Pain Cardiovascular: No: Chest Pain or Discomfort Respiratory: No: Shortness of Breath Gastrointestinal: No: Nausea, Vomiting, Diarrhea, Abdominal Pain Genitourinary: No: Dysuria Musculoskeletal: No: Pain Skin: Positive Breast Lumps, Positive Breast Tenderness, Positive Breast Swelling, No Rash Neurologic: No: Weakness, Focal Abnormalities, Change in Mentation, Slurred Speech, Sensory Disturbance Psychiatric: No: Depression Endocrine: No: Polydipsia Hematologic/Lymphatic: No: Easy Bruising Physical Exam Narrative General: The patient is a well-developed well-nourished female, tearful on examination reportedly related to left breast pain.. Head and Neck exam: Head is normocephalic atraumatic. Eyes: EOMI, pupils are equal round and reactive to light. Nose: Midline septum with pink mucous membranes Mouth: Dentition unremarkable. Moist mucus membranes. Posterior oropharynx is not erythematous. No tonsillar hypertrophy. Uvula midline. Airway patent. Neck: No palpable lymphadenopathy. No nuchal rigidity. No thyromegaly. Cardiovascular: Regular rate and rhythm without murmurs, gallops, or rubs. No pulse deficit to the extremities on simultaneous auscultation and palpation of her radial artery Breast exam: The patient is noted to have a nontender breast on the right. The patient's breasts are not engorged. The patient has dry cracked nipples bilaterally. The patient on examination of the left breast, the area of interest is noted to have an area of redness medially. The patient is tender to palpation at the site. There is no fluctuance suggestive of abscess. No pointing. Lungs: Clear to auscultation bilaterally. No wheezes, rhonchi, or rales. Abdomen: Soft, without tenderness to palpation in all 4 quadrants of the abdomen. No guarding, rebound, or rigidity. Normal bowel sounds are audible. No tenderness on palpation of McBurney's point. Extremities: No clubbing, cyanosis, or edema. 2+ pulses in all 4 extremities. No calf tenderness on palpation. Back: No spinous process tenderness to palpation. No costovertebral angle tenderness to palpation. Neurologic Exam: Grossly nonfocal. Skin Exam: No rash noted. Intact skin that is warm and dry. Data Data Last Documented VS Vital Signs Date Time Temp Pulse Resp B/P (MAP) Pulse Ox O2 Delivery O2 Flow Rate FiO2 05/22/18 23:57 100.2 84 16 146/67 (93) 100 Orders Orders Complete Blood Count With Diff (05/23/18 02:14) Comprehensive Metabolic Panel (05/23/18 02:14) Cefazolin 2 Gm Premix (Ancef 2 Gm Premix (05/23/18 03:30) Ketorolac Inj (Toradol Inj) (05/23/18 03:30) Sodium Chlor 0.9% 1000 Ml Inj (Ns 1000 M (05/23/18 03:30) Iv Access Insert/Monitor (05/23/18 03:31) Ecg Monitoring (05/23/18 03:31) Oximetry (05/23/18 03:31) Ed Urine Pregnancytest Poc (05/23/18 03:31) Labs Laboratory Tests Test 05/23/18 02:25 White Blood Count 8.9 TH/MM3 Red Blood Count 4.51 MIL/MM3 Hemoglobin 13.4 GM/DL Hematocrit 40.8 % Mean Corpuscular Volume 90.3 FL Mean Corpuscular Hemoglobin 29.6 PG Mean Corpuscular Hemoglobin Concent 32.8 % Red Cell Distribution Width 13.3 % Platelet Count 247 TH/MM3 Mean Platelet Volume 9.9 FL Neutrophils (%) (Auto) 77.7 % Lymphocytes (%) (Auto) 14.6 % Monocytes (%) (Auto) 7.2 % Eosinophils (%) (Auto) 0.2 % Basophils (%) (Auto) 0.3 % Neutrophils # (Auto) 6.9 TH/MM3 Lymphocytes # (Auto) 1.3 TH/MM3 Monocytes # (Auto) 0.6 TH/MM3 Eosinophils # (Auto) 0.0 TH/MM3 Basophils # (Auto) 0.0 TH/MM3 CBC Comment DIFF FINAL Differential Comment Blood Urea Nitrogen 20 MG/DL Creatinine 1.00 MG/DL Random Glucose 82 MG/DL Total Protein 8.2 GM/DL Albumin 4.1 GM/DL Calcium Level 8.6 MG/DL Alkaline Phosphatase 76 U/L Aspartate Amino Transf (AST/SGOT) 44 U/L Alanine Aminotransferase (ALT/SGPT) 24 U/L Total Bilirubin 0.3 MG/DL Sodium Level 137 MEQ/L Potassium Level 4.9 MEQ/L Chloride Level 105 MEQ/L Carbon Dioxide Level 26.1 MEQ/L Anion Gap 6 MEQ/L Estimat Glomerular Filtration Rate 79 ML/MIN [facility] Medical Decision Making Medical Screen Exam Complete: Yes Emergency Medical Condition: Yes Medical Record Reviewed: Yes Differential Diagnosis Mastitis, versus blocked breast duct, versus abscess, engorged breast Narrative Course During the course of the patient's emergency department visit, the patient's history, examination, and differential diagnosis were reviewed with the patient. The patient was placed on a personnel monitor with oximetry and frequent blood pressure monitoring. The patient had IV access obtained and blood work sent for analysis. The patient was initially provided normal saline 1 L IV fluid bolus, Toradol 15 mg IV for pain, Ancef 2 g IV.. The patient's laboratory studies were reviewed and remarkable for a white count of 8.9, hemoglobin 13.4, platelets 247 with neutrophils 77.7, CMP is remarkable for BUN of 20, GFR 79, AST 44 The patient was encouraged to breast pump while she has this infection. The patient's symptoms are consistent with mastitis, possibly complicated by a ductal obstruction. Again I explained that breast-feeding, or pumping can help to alleviate the pain and obstruction. The patient will be discharged home with antibiotic. The patient is encouraged to contact her telecommunications consultant again in the morning for assistance. The patient was instructed to follow-up with her HOME VISITS NURSE, Dr. Josue the next 2 days for reexamination. Review of the record reveals that the patient has had MRSA skin infections in the past. The patient will have added to her medication regimen clindamycin. The patient will be given her first dose of clindamycin here. The patient will be discharged home on clindamycin for continued treatment. The patient will also be given a prescription for Bactroban ointment to apply to her nipples. The patient is resting comfortably and feels better, is alert and in no distress. The patient's results and examination findings were discussed with the patient. The repeat examination is unremarkable and benign. The history, exam, diagnostic testing, and current condition do not suggest any significant pathology to warrant further testing, continued ED treatment, admission, or surgical evaluation at this point. The vital signs have been stable. The patient does not have uncontrollable pain, intractable vomiting, or other significant symptoms. The patient's condition is stable and appropriate for discharge. The patient will pursue further outpatient evaluation with a primary care physician or other designated or consulting physician as indicated in the discharge instructions. The patient is instructed to report back to the emergency department immediately for reexamination in the mean time if she develops any new or worsening signs or symptoms. The patient expressed understanding and was agreeable with this plan. Diagnosis Primary Impression: Mastitis Additional Impression: Breast pain, left Referrals: [facility] 2 days [employer] Par[employer] 2 days Patient Instructions: General Instructions, Mastitis (ED) Additional Instructions: The patient was encouraged to breast pump while she has this infection. The patient's symptoms are consistent with mastitis, possibly complicated by a ductal obstruction. Again I explained that breast-feeding, or pumping can help to alleviate the pain and obstruction. The patient will be discharged home with antibiotic. The patient is encouraged to contact her telecommunications consultant again in the morning for assistance. The patient was instructed to follow-up with her HOME VISITS NURSE, Dr. Josue the next 2 days for reexamination. Med/Other Pt SpecificInfo: Prescription(s) given Scripts Naproxvalentin LALA (EC-Naprosyn) 500 Mg Tabdr 500 MG PO BID Y for PAIN GREATER THAN 5, #10 TAB 0 Refills Prov: Kim Boswell MD 05/23/18 Clindamycin (Clindamycin) 300 Mg Cap 300 MG PO Q6H for Infection for 10 Days, #40 CAP 0 Refills Prov: Kim Boswell MD 05/23/18 Mupirocin Topical (Bactroban Topical) 22 Gm Cream 1 APPLIC TOPICAL TID for Mgmt Bacterial Infection for 7 Days, #1 TUBE 0 Refills Prov: Kim Boswell MD 05/23/18 Disposition: 01 DISCHARGE HOME Condition: Stable Kim Boswell MD May 23, 2018 03:44
[2018-05-23] MEDS ORDERED: CLINDAMYCIN 900 MG/NS PREMIX 50 ML IV ONE (03:45)
[2018-05-23 04:05] VITALS: RESP 20
[2018-05-23 04:51] VITALS: BP 113/67
== END 2018-05-23 05:41 | disposition home or self-care (01) ==
LOC: NEPC 23:06
DX: N61.0 Mastitis without abscess (principal); N64.4 Mastodynia
CPT/HCPCS: 80053; 84703; 85025; 96365; 96375; 99284; J0690; J1885; J7030